=== PATIENT | female | born 1930 | race Caucasian/White ===

== ENCOUNTER 2016-12-30 15:35 | Inpatient (IN) | payer OTHER, MEDICAID ==
[~2016-12-30] VITALS: Ht 157.5 cm; Wt 65.4 kg
[~2016-12-30 15:35] MED LIST: ARIP2TAB8 PO; ASPI-664 PO; ATOR20TA38 PO; BISA5TAB6 PO; CIPR500T4 PO; DOCU250C58 PO; DONE10TA7 PO; GABA-526 PO; HYDR-3011 PO; HYDR-902 PO; IBUP400T22 PO; LEVO50TA74 PO; LISI-313 PO; MORP-58 PO; ONDA4TAB14 PO; RANI150T5 PO; RISP0.5T3 PO; SENN-53 PO; SERT50TA6 PO; TEMA15CA PO; TOPI-25 PO; TRAZ50TA18 PO
[2016-12-30] MEDS ORDERED: SOD CHLORIDE 0.9% 1,000 ML IV STA (15:53)
[2016-12-30 16:18] LABS: ADD SCAN DIFF NO
[2016-12-30 16:21] LABS: ABNORMAL IP MESSAGE 1; BASOPHILS % 0.2 % (0.0-2.0); HEMATOCRIT 41.2 % (37.0-47.0); HEMOGLOBIN 13.6 g/dl (12.0-16.0); LYMPHOCYTES # 0.4 10^3/ul (0.8-2.9); LYMPHOCYTES % 3.6 % (15.0-51.0); MEAN CORPUSCULAR HEMOGLOBIN 33.4 pg (29.0-33.0); MEAN CORPUSCULAR VOLUME 101.2 fl (82.0-101.0); MEAN PLATELET VOLUME 9.5 fl (7.4-10.4); MONOCYTE # 0.5 10^3/ul (0.3-0.9); MONOCYTES % 4.2 % (0.0-11.0); NEUTROPHILS % 91.5 % (39.0-77.0); PLATELET COUNT 227 10^3/UL (140-415); RED BLOOD COUNT 4.07 10^6/ul (4.20-5.40); RED CELL DISTRIBUTION WIDTH 11.6 % (11.5-14.5)
[2016-12-30 16:25] LABS: ADD UMIC YES; URINE BILIRUBIN (Dip) NEGATIVE (NEGATIVE); URINE BLOOD (Dip) 3+ (NEGATIVE); URINE COLOR YELLOW (YELLOW); URINE GLUCOSE (Dip) NEGATIVE (NEGATIVE); URINE KETONES (Dip) NEGATIVE (NEGATIVE); URINE LEUKOCYTE ESTERASE (Dip) 3+ (NEGATIVE); URINE NITRITE (Dip) POSITIVE (NEGATIVE); URINE TOTAL PROTEIN (Dip) TRACE (NEGATIVE); URINE UROBILINOGEN (Dip) 0.2 E.U./dL (0.1-1.0)
--- NOTE | 2016-12-30 16:34 | RADRPT ---
PROCEDURE: Chest x-ray CLINICAL INDICATION: Abdominal pain TECHNIQUE: Chest single view COMPARISON: 11/26/2015 FINDINGS: The heart is normal in size. The pulmonary vessels are normal in caliber. The lungs are clear. Th e costophrenic angles are sharp. The visualized bony thorax is unremarkable. IMPRESSION: No acute cardiopulmonary disease. Stable atherosclerotic aortic calcification Moderate stool in the left colon RPTAT: HH .Lux Walker MD, MD Date Time Electronically viewed and signed by .Lux Walker MD, on 12/30/2016 16:34 .W/
[2016-12-30 16:35] LABS: BACTERIA,URINE MANY
[2016-12-30 16:46] LABS: ALBUMIN 4.1 g/dl (3.3-4.9); CHLORIDE 102 mmol/L (97-110); POTASSIUM 3.8 mmol/L (3.5-5.1); SODIUM 144 mmol/L (135-144)
[2016-12-30 16:48] LABS: ANION GAP 20 (8-16); BILIRUBIN,INDIRECT 0.2 mg/dl (0-1.1); BILIRUBIN,TOTAL 0.2 mg/dl (0.2-1.3); CARBON DIOXIDE 26 mmol/L (21-31); CREATININE 0.72 mg/dl (0.44-1.00)
[2016-12-30 16:49] LABS: ALANINE AMINOTRANSFERASE 19 IU/L (13-69); ALKALINE PHOSPHATASE 102 IU/L (42-121); ASPARTATE AMINO TRANSFERASE 18 IU/L (15-46); BLOOD UREA NITROGEN 17 mg/dl (7-20); CALCIUM 9.6 mg/dl (8.4-10.2); GLUCOSE 160 mg/dl (70-220); TOTAL PROTEIN 7.5 g/dl (6.1-8.1)
[2016-12-30] MEDS ORDERED: FAMO20TA18 PO (16:51)
[2016-12-30] MEDS ORDERED: SODI30SP2 NS (16:53)
[2016-12-30] MEDS ORDERED: ACET325T33 PO (16:55)
[2016-12-30] MEDS ORDERED: TYL500 PO (16:56)
[2016-12-30] MEDS ORDERED: ZINC220T PO (16:57)
[2016-12-30] MEDS ORDERED: ASC500 PO (16:57)
[2016-12-30] MEDS ORDERED: CRAN450C PO (16:59)
[2016-12-30] MEDS ORDERED: DOCU-144 PO (16:59)
[2016-12-30] MEDS ORDERED: CEFEPIME 1GM/50 ML (PMX) 50 ML IVPB ONE (17:00)
[2016-12-30] MEDS ORDERED: DULR PR (17:00)
[2016-12-30] MEDS ORDERED: FLEETPED PR (17:01)
[2016-12-30] MEDS ORDERED: METF500T4 PO (17:02)
[2016-12-30] MEDS ORDERED: MORP60TA37 PO (17:03)
[2016-12-30] MEDS ORDERED: MAGN400O4 PO (17:03)
[2016-12-30] MEDS ORDERED: MULT-105 PO (17:04)
[2016-12-30 17:15] LABS: TROPONIN-I < 0.012 ng/ml (0.00-0.12)
[2016-12-30] MEDS ORDERED: GABA-526 PO (17:19)
--- NOTE | 2016-12-30 17:34 | ERA ---
ER Documentation Chief Complaint Date/Time DATE: 12/30/16 TIME: 17:25 Chief Complaint Seizures HPI 86-year-old woman brought in by EMS from [facility] for tonic-clonic seizure activity. Patient does have a history of seizure disorder and is normally controlled with topiramate. She had postictal encephalopathy and was transported here for evaluation. Patient is normally ambulatory and talkative. Patient had no loss of bowel or bladder control, no tongue injury, no recent fevers or chills, no vomiting or diarrhea. HPI supplemented by reviewing past medical history, [facility] records, speaking to EMS, and nursing staff. ROS All systems reviewed and are negative except as per history of present illness. Medications Home Meds Active Scripts Ondansetron (Ondansetron Odt) 4 Mg Tab.rapdis, 4 MG PO Q6H Y for NAUSEA AND/OR VOMITING, #10 TAB Prov:HAKEEM WU MD 10/08/16 Reported Medications Gabapentin* (Gabapentin*) 600 Mg Tablet, 660 MG PO Q8H, #60 TAB 12/30/16 Multivitamin with Minerals (Multivitamins with Minerals) 1 Each Tablet, 1 EACH PO DAILY, TAB 12/30/16 Morphine Sulfate* (Ms Contin*) 60 Mg Tablet.sa, 60 MG PO BID, TAB.SA 12/30/16 Magnesium Hydroxide* (Milk Of Magnesia*) 400 Mg/5 Ml Oral.susp, 30 ML PO Q24H Y for CONSTIPATION, ML 12/30/16 Metformin* (Glucophage*) 500 Mg Tab, 500 MG PO WITH BREAKFAST, #30 TAB 12/30/16 Sod Phosphate/Sod Biphosphate* (Fleet* Enema Pediatric) 66.6 Ml Soln, 66.6 ML SD Q2D Y for CONSTIPATION, ENEMA 12/30/16 Bisacodyl* (Bisacodyl*) 10 Mg Supp, 10 MG SD Q24H Y for PRN, SUPP 12/30/16 Cranberry Fruit Concentrate (CRANBERRY) 450 Mg Capsule, 450 MG PO DAILY, CAP 12/30/16 Docusate Sodium* (Colace*) 100 Mg Capsule, 200 MG PO QHS, #30 CAP 12/30/16 Zinc Sulfate* (Zinc Sulfate*) 220 Mg Tablet, 220 MG PO DAILY, TAB 12/30/16 Ascorbic Acid (Vitamin C) 500 Mg Tab, 500 MG PO DAILY, TAB 12/30/16 Acetaminophen* (Tylenol*) 500 Mg Tab, 1000 MG PO Q4H Y for MODERATE PAIN 4-04/05 , TAB 12/30/16 Acetaminophen* (Tylenol*) 325 Mg Tablet, 650 MG PO Q4H Y for MILD PAIN LEVEL 1-3 , TAB 12/30/16 Sodium Chloride (Saline Nasal [place]) 30 Ml Downing, 30 ML NS TID Y for 1SPRAY IN EACH NOSTRIL, SPRAY 12/30/16 Famotidine* (Famotidine*) 20 Mg Tablet, 20 MG PO BID, #60 TAB 12/30/16 Hydrocodone/Acetaminophen ([place] 10-325 Tablet) 1 Each Tablet, 1 EACH PO Q4H for PAIN 7-07/06, TAB 10/08/16 Topiramate* (Topiramate*) 100 Mg Tablet, 100 MG PO BID, TAB 10/08/16 Sertraline Hcl* (Sertraline Hcl*) 50 Mg Tablet, 50 MG PO DAILY, #30 TAB 10/08/16 Risperidone* (Risperidone*) 0.5 Mg Tablet, 0.5 MG PO DAILY Q5PM, TAB 10/08/16 Lisinopril* (Lisinopril*) 5 Mg Tablet, 5 MG PO DAILY, #30 TAB 10/08/16 Donepezil* (Donepezil*) 10 Mg Tablet, 10 MG PO QHS, #30 TAB 10/08/16 Atorvastatin Calcium* (Atorvastatin Calcium*) 20 Mg Tablet, 20 MG PO QHS, #30 TAB 10/08/16 Aspirin* (Aspirin* EC) 81 Mg Tablet.dr, 81 MG PO DAILY, TAB 10/08/16 Discontinued Reported Medications Temazepam* (Temazepam*) 15 Mg Capsule, 15 MG PO HS Y for INSOMNIA, CAP 10/08/16 Hydroxyzine Hcl* (Hydroxyzine Hcl*) 25 Mg Tablet, 25 MG PO Q6H Y for ITCHING, # 30 TAB 10/08/16 Ibuprofen* (Ibuprofen*) 400 Mg Tablet, 400 MG PO Q12 Y for PAIN, TAB 10/08/16 Bisacodyl* (Bisacodyl*) 5 Mg Tablet.dr, 10 MG PO DAILY Y for CONSTIPATION, TAB 10/08/16 Trazodone Hcl* (Trazodone Hcl*) 50 Mg Tablet, 50 MG PO QHS, #30 TAB 10/08/16 Docusate Sodium* (Colace*) 250 Mg Capsule, 250 MG PO BID, #60 CAP 10/08/16 Sennosides* (Senna Lax*) 8.6 Mg Tablet, 2 TAB PO QHS, TAB 10/08/16 Ranitidine Hcl* (Ranitidine Hcl*) 150 Mg Tablet, 150 MG PO Q12, #60 TAB 10/08/16 Levothyroxine Sodium* (Levothyroxine Sodium*) 50 Mcg Tablet, 50 MCG PO BEFORE BREAKFAST, #30 TAB 10/08/16 Morphine Sulfate* (Oramorph SR*) 30 Mg Tablet.sa, 30 MG PO Q12H, TAB.SA 10/08/16 Gabapentin* (Gabapentin*) 600 Mg Tablet, 600 MG PO TID, #90 TAB 10/08/16 Aripiprazole* (Abilify*) 2 Mg Tablet, 2 MG PO DAILY, #30 TAB 10/08/16 Discontinued Scripts Ciprofloxacin Hcl* (Ciprofloxacin Hcl*) 500 Mg Tablet, 500 MG PO BID for 10 Days , TAB Prov:HAKEEM WU MD 10/08/16 Ciprofloxacin Hcl* (Ciprofloxacin Hcl*) 500 Mg Tablet, 500 MG PO BID for 10 Days , TAB Prov:HAKEEM UW MD 10/08/16 Allergies Allergies: Coded Allergies: No Known Allergy (Unverified , 12/30/16) PMhx/Soc Coronary artery disease, seizure disorder, hypertension, dementia, chronic low back pain, DNR status Medical and Surgical Hx: Unable to obtain History of Surgery: Yes (cholecystectomy) Anesthesia Reaction: No Hx Neurological Disorder: Yes (diabetic neuropathy) Hx Respiratory Disorders: No Hx Cardiac Disorders: Yes (htn, DM) Hx Psychiatric Problems: No Hx Miscellaneous Medical Probl: Yes (hypothyroidism,dementia,chronic pain) Hx Alcohol Use: No Hx Substance Use: No Hx Tobacco Use: No Smoking Status: Unknown if ever smoked FmHx Family History: No diabetes Physical Exam Vitals Vital Signs Date Time Temp Pulse Resp B/P Pulse Ox O2 Delivery O2 Flow Rate FiO2 12/30/16 20:59 98.3 67 14 97/43 12/30/16 20:24 70 12 92/40 90 12/30/16 17:43 76 14 91/52 98 12/30/16 15:45 98.4 90 17 77/64 98 Nasal Cannula 3.0 Physical Exam GENERAL: Well-developed, dehydrated, encephalopathic, afebrile HEENT: Dry mucous membranes, pink conjunctiva, no cervical spine tenderness or step-off deformities, no goiter, no jaundice or icterus, extraocular movements intact without pain. No submandibular induration, and no pharyngeal erythema NEURO: Nonverbal, eyes closed, no facial asymmetry, pupils equal round reactive to light CARDIAC: Tachycardic and rhythm, no murmurs rubs or gallops LUNGS: Clear bilaterally no wheezing crackles or stridor ABDOMEN: Soft nontender, no guarding, no rigidity, no rebound, no psoas sign no obturator sign. Normoactive bowel sounds SKIN: Warm and dry to touch, no abrasions, contusions, or hematomas, no lacerations, no ecchymosis, no target lesions, and without ulcers EXTREMITIES: No clubbing cyanosis or edema, calves are bilaterally symmetrical, no Homans sign, no popliteal cord sign. Distal pulses equal and bilateral PSYCH: Unable to assess Result Diagram: 12/30/16 1610 12/30/16 1610 Results 24 hrs Laboratory Tests Test 12/30/16 16:10 Alanine Aminotransferase (ALT/SGPT) 19IU/L Albumin 4.1g/dl Albumin/Globulin Ratio 1.20 Alkaline Phosphatase 102IU/L Anion Gap 20 Aspartate Amino Transf (AST/SGOT) 18IU/L Basophils # 0.010^3/ul Basophils % 0.2% Blood Urea Nitrogen 17mg/dl Calcium Level 9.6mg/dl Carbon Dioxide Level 26mmol/L Chloride Level 102mmol/L Creatinine 0.72mg/dl Direct Bilirubin 0.00mg/dl Eosinophils # 0.010^3/ul Eosinophils % 0.0% Globulin 3.40g/dl Glucose Level 160mg/dl Hematocrit 41.2% Hemoglobin 13.6g/dl Indirect Bilirubin 0.2mg/dl Lipase 48U/L Lymphocytes # 0.410^3/ul Lymphocytes % 3.6% Mean Corpuscular Hemoglobin 33.4pg Mean Corpuscular Hemoglobin Concent 33.0g/dl Mean Corpuscular Volume 101.2fl Mean Platelet Volume 9.5fl Monocytes # 0.510^3/ul Monocytes % 4.2% Neutrophils # 11.010^3/ul Neutrophils % 91.5% Nucleated Red Blood Cells # 0.010^3/ul Nucleated Red Blood Cells % 0.0/100WBC Platelet Count 25966^3/UL Potassium Level 3.8mmol/L Red Blood Count 4.0710^6/ul Red Cell Distribution Width 11.6% Sodium Level 144mmol/L Total Bilirubin 0.2mg/dl Total Protein 7.5g/dl Troponin I < 0.012ng/ml Urine Amorphous Phosphates MANY Urine Bacteria MANY Urine Bilirubin NEGATIVE Urine Clarity TURBID Urine Color YELLOW Urine Epithelial Cells FEW Urine Glucose NEGATIVE% Urine Hemoglobin 3+ Urine Ketones NEGATIVE Urine Leukocyte Esterase 3+ Urine Microscopic RBC 5-10/HPF Urine Microscopic WBC >50/HPF Urine Nitrite POSITIVE Urine Specific [place] 1.015 Urine Total Protein TRACE Urine Triple Phosphate Crystals FEW Urine Urobilinogen 0.2 E.U./dL Urine pH 8.0 White Blood Count 12.010^3/ul Current Medications Medications (Trade) Dose Ordered Sig/Jacquelyn Route PRN Reason Start Time Stop Time Status Last Admin Dose Admin Sodium Chloride 1,000 ml @ 1,000 mls/hr Q1H STAT IV 12/30/16 15:53 12/30/16 16:52 DC 12/30/16 16:42 Cefepime HCl (Maxipime 1gm/50 ml (Pmx)) 50 ml @ 100 mls/hr ONCE ONCE IVPB 12/30/16 17:00 12/30/16 17:29 DC 12/30/16 16:56 Acetaminophen (Tylenol Tab) 650 mg Q4H PRN PO MILD PAIN LEVEL 1-3 12/30/16 20:00 Ascorbic Acid (Vitamin C) 500 mg DAILY PO 12/31/16 09:00 Aspirin (Halfprin) 81 mg DAILY PO 12/31/16 09:00 Atorvastatin Calcium (Lipitor) 20 mg QHS PO 12/30/16 21:00 Donepezil HCl (Aricept) 10 mg QHS PO 12/30/16 21:00 Famotidine (Pepcid) 20 mg BID PO 12/30/16 21:00 UNV Acetaminophen/ Hydrocodone Bitart ([place] (10/325)) 1 tab Q4H PRN PO pain 12/30/16 20:00 Magnesium Hydroxide (Milk Of Mag) 30 ml Q24H PRN PO CONSTIPATION 3/6/17 20:00 Morphine Sulfate (Ms Contin (Er)) 60 mg BID PO 12/30/16 21:00 Sodium Chloride ([place]) 1 spray TID PRN NASAL 1SPRAY IN EACH NOSTRIL 12/30/16 20:00 Topiramate (Topamax) 100 mg BID PO 12/30/16 21:00 Zinc Sulfate (Zinc Sulfate) 220 mg DAILY PO 12/31/16 09:00 Gabapentin (Neurontin) 600 mg Q8H PO 12/30/16 20:00 Senna/Docusate Sodium (Senokot-S) 2 tab BID PO 12/30/16 21:00 Polyethylene Glycol (Miralax) 17 gm Q12H PRN PO no bm >24 hours 12/30/16 20:00 Methylnaltrexone [place] (Relistor) 12 mg Q24H PRN SC no bm >24 hours 12/30/16 20:00 Enoxaparin Sodium 40 mg 40 mg DAILY SC 12/31/16 09:00 Cefepime HCl 50 ml @ 100 mls/hr Q8 IVPB 12/30/16 22:00 Metronidazole 100 ml @ 100 mls/hr Q8 IVPB 12/30/16 22:00 Sodium Chloride (NS) 1,000 ml @ 125 mls/hr Q8H IV 12/30/16 20:00 Insulin Aspart (Novolog Insulin Pen) NOVOLOG *MODERATE* ALGORITHM WITH MEALS BEDTIME SC 12/30/16 21:00 Miscellaneous Information (* Miscellaneous Pharmacy Order) HYPOGLYCEMIA PROTOCOL w... ONCE ONCE XX 12/30/16 20:00 12/30/16 21:17 DC Miscellaneous Information (* Miscellaneous Pharmacy Order) Discontinue Glyburide, Glipizide,... ONCE ONCE XX 12/30/16 20:00 12/30/16 21:17 DC Miscellaneous Information (* Miscellaneous Pharmacy Order) Discontinue all previ... ONCE ONCE XX 12/30/16 20:00 12/30/16 21:17 DC Famotidine (Pepcid) 20 mg DAILY PO 12/31/16 09:00 Diagnostic Test (Pha) (Accucheck) 1 ea 02 XX 12/31/16 02:00 Miscellaneous Information 1 ea NOTE XX 12/30/16 21:00 Glucose (Glutose) 15 gm Q15M PRN PO DECREASED GLUCOSE 3/6/17 21:00 Glucose (Glutose) 22.5 gm Q15M PRN PO DECREASED GLUCOSE 12/30/16 21:00 Dextrose (D50w Syringe) 25 ml Q15M PRN IV DECREASED GLUCOSE 12/30/16 21:00 Dextrose (D50w Syringe) 50 ml Q15M PRN IV DECREASED GLUCOSE 12/30/16 21:00 Glucagon (Glucagen) 1 mg Q15M PRN IM DECREASED GLUCOSE 12/30/16 21:00 Glucose (Glutose) 15 gm Q15M PRN BUCCAL DECREASED GLUCOSE 12/30/16 21:00 Procedures/MDM IV line was established patient was placed on monitoring analyst rhythm strip revealed a sinus tachycardia at 110 bpm with upright P and T waves. Patient was afebrile. Blood and urine cultures were ordered results are pending I will follow-up. EKG performed, read by me revealed a normal sinus rhythm 87 bpm, left axis deviation, right bundle branch block, QRS duration 134 ms, no concerning ST elevations or depressions noted. One view chest x-ray performed, read by me there are no acute infiltrates, no aspiration, no pneumothorax. I administered 1 L normal saline intravenously for dehydration. CBC was unremarkable, electrolytes revealed an increased BUN/creatinine ratio consistent with dehydration, liver function tests are normal, troponin was negative. Urine analysis was positive for infection. I administered cefepime 1 g IV [address] Yousif the patient's health insurance directed physician who agreed to see and evaluate the patient at the bedside and help with further disposition and management. He agreed to inpatient management Departure Diagnosis: Primary Impression: Seizure disorder Additional Impressions: Postictal state Dehydration UTI (urinary tract infection) Qualified Code: N30.00 - Acute cystitis without hematuria Condition: NICK Cartwright MD Dec 30, 2016 17:34
--- NOTE | 2016-12-30 19:24 | RADRPT ---
PROCEDURE: CT Head without contrast. CLINICAL INDICATION: Seizure TECHNIQUE: The study was performed utilizing a GE 64-slice multidetector CT scanner. Direct spiral axial CT images of the brain were obtained from the vertex to the skull base without contrast. Tiffanie nal and sagittal reformatted images are provided. The CTDI vol is 39.63 mGy and the DLP is 634.23 mG y-cm. The images were reviewed on a PACS workstation. COMPARISON: No prior studies are available for comparison. FINDINGS: Mild diffuse atrophy is seen with a compensatory ventricular enlargement. Mild white matter disease in the periventricular and deep white matter is seen. Small chronic bilateral basal ganglia lacunar infarcts are seen. The kohler-white matter differentiation is maintained. No intra or extra-axial fl uid collection or mass effect or shift in the midline structures is seen. The visualized paranasal sinuses, mastoid air cells, orbits, and calvarium are unremarkable. Vascular calcifications are seen . IMPRESSION: 1. No acute intracranial pathology. 2. Mild diffuse volume loss and mild chronic microvascular ischemic changes. 3. Small bilateral basal ganglia chronic lacunar infarcts. RPTAT: HPNM Physician Arabella Date Time Electronically viewed and signed by Physician Arabella on 12/30/2016 19:24 /
[2016-12-30] MEDS ORDERED: HYDROCODONE/APAP (10/325) TAB PO PRN (20:00)
[2016-12-30] MEDS ORDERED: POLYETHYLENE GLYCOL 17 GM PACKET PO PRN (20:00)
[2016-12-30] MEDS ORDERED: ACETAMINOPHEN 325 MG TAB PO PRN (20:00)
[2016-12-30] MEDS ORDERED: METHYLNALTREXONE 12 MG/0.6 ML VIAL SC PRN (20:00)
[2016-12-30] MEDS ORDERED: MAGNESIUM HYDROXIDE 30ML CUP PO PRN (20:00)
[2016-12-30] MEDS ORDERED: SALINE 0.65% 45 ML NAS SPRAY NASAL PRN (20:00)
--- NOTE | 2016-12-30 20:17 | QN ---
Documentation Comment H&P dict a/p 1. neuro: s/p tonic clonic seizure, no w recovered. neuro eval for ?change or add meds (b) dementia, cont aricept 2. gu: patient with numerous uti, suggestion of possible bladder mass in paperwork that accompanies. will Rx with abx plan outpatient urology eval when urine is documented sterile for possible cystoscopy (if not already done) 3. GI: pt with RLQ pain, unclear etiology, most likely constipation, will obtain ct for futher eval. r/o appy (b) chronic constipation related to opiates, increase bowel regimen 4. chronic pain related to spinal stenosis cont opiates 5. proph: lovenox 6.dm ISS ISAC VELEZ MD Dec 30, 2016 20:17
[2016-12-30 20:59] VITALS: TEMP 98.3
[2016-12-30] MEDS ORDERED: GLUCAGON 1 MG INJ IM PRN (21:00)
[2016-12-30] MEDS ORDERED: GLUCOSE GEL 15 GRAM TUBE PO PRN ×2 (21:00)
[2016-12-30] MEDS ORDERED: DEXTROSE 50% 50 ML SYRINGE IV PRN ×2 (21:00)
[2016-12-30] MEDS ORDERED: GLUCOSE GEL 15 GRAM TUBE BUCCAL PRN (21:00)
[2016-12-30] MEDS ORDERED: FAMOTIDINE 20 MG TAB PO SCH (21:00)
--- NOTE | 2016-12-30 21:11 | RADRPT ---
PROCEDURE: CT abdomen and pelvis without contrast. CLINICAL INDICATION: Right lower quadrant pain TECHNIQUE: CT scan of the abdomen and pelvis without contrast was performed and is reconstructed a t 2.5 mm contiguous axial intervals from the dome of the diaphragm to the inferior pubic rami.. The patient was scanned without intravenous contrast. Sagittal and coronal reformatted images were obt ained from the axial source images. The calculated radiation dose measures 540 mGy centimeters. The CTDI measures 11 mGy. COMPARISON: CT abdomen pelvis February 13, 2016 FINDINGS: The lung bases are clear of any infiltrate or nodule. No effusion is seen. The liver is of normal size, contour and attenuation with no mass . Gallbladder has been removed. T here is presumed physiologic mild intrahepatic and moderate extrahepatic bile duct dilatation. No s tones are present. No splenic, adrenal or pancreatic abnormalities present. Kidneys are of normal size and contour. No mass is seen. Noted are multiple bilateral nonobstructi ng renal calculi including a 5 mm stone in the right renal pelvis. There is mild left hydroureter ne phrosis. A 6 mm calculus is seen at the orifice of the left ureterovesicular junction. The right u reter is of normal course and caliber with no stone. Clifton catheter is present in the urinary bladd er. Uterus is atrophic. There are calcified fibroids. There is gas visualized within the endometr ial canal. No adnexal mass is seen. There is no aneurysm. There are vascular calcifications. No adenopathy is present. No bowel mass or obstruction is present. The appendix is normal. There are scattered diverticula. No phlegmon, ascites or pneumoperitoneum is visualized. There is rotary levoscoliosis of the lumbar spine with multilevel degenerative disk disease. IMPRESSION: Bilateral nonobstructing renal calculi. Mild left hydroureter nephrosis with 6 mm stone orifice ure terovesicular junction. Post cholecystectomy. Presumed physiologic intra and extrahepatic bile duct dilatation. Consider c orrelation with liver function tests if clinically indicated. No evidence of appendicitis. Diverticulosis. No diverticulitis. Atrophic postmenopausal fibroid uterus. Gas within endometrial canal not present on prior study. Th is is of unknown significance. No fistula to the bowel is seen. Consider sonographic correlation. Rotary levoscoliosis lumbar spine with multilevel degenerative disk disease. .Alessandro Bocanegra MD, MD Date Time Electronically viewed and signed by .Alessandro Bocanegra MD, on 12/30/2016 21:11 .A/
[2016-12-30 22:30] VITALS: Ht 157.5 cm; Wt 65.4 kg
[2016-12-30 22:55] VITALS: BP 121/57; PULSE 67
[2016-12-30] MEDS: GABAPENTIN 300 MG CAP PO SCH (22:55)
[2016-12-30] MEDS: SOD CHLORIDE 0.9% 1,000 ML IV SCH (22:55)
[2016-12-30] MEDS: morphine (ER) 30 MG TAB PO SCH (22:56)
[2016-12-30] MEDS: DONEPEZIL 10 MG TAB PO SCH (22:56)
[2016-12-30] MEDS: ATORVASTATIN 20 MG TAB PO SCH (22:56)
[2016-12-30] MEDS: SENNA/DOCUSATE NA (8.6MG/50MG) TAB PO SCH (22:57)
[2016-12-30] MEDS: metroNIDAZOLE 500 MG/NS (PMX) 100 ML IVPB SCH (22:57)
[2016-12-30] MEDS: INSULIN ASPART [NOVOLOG] 3 ML PEN SC SCH (22:57)
[2016-12-30] MEDS: TOPIRAMATE 100 MG TAB PO SCH (23:29)
[2016-12-30] MEDS: CEFEPIME 1GM/50 ML (PMX) 50 ML IVPB SCH (23:56)
--- NOTE | 2016-12-31 00:57 | HP ---
DATE OF ADMISSION: 12/30/2016 CHIEF COMPLAINT: Seizure. HISTORY OF PRESENT ILLNESS: Ms. Tam was transferred to the emergency room at [facility], her shelter facility, after having a tonic-clonic seizure. The p atient has no recollection of this event. She apparently did have a prolonged postictal confusion, but by the time of my arrival, she is now awake, alert and answering appropriately. She does compla in of some abdominal pain which she localizes to the right lower quadrant, states that she has had 1 or 2 episodes of vomiting, that she suffers frequently from constipation and this has also been armando oing. She denies any recent fevers or chills. Denies coughing, runny nose, sore throat. PAST MEDICAL HISTORY: Significant for: 1. Alzheimer dementia. 2. Seizure disorder. 3. Chronic pain syndrome. 4. Diabetes. 5. Hyperlipidemia. 6. Hypertension. MEDICATIONS AN OUTPATIENT: Include 1. Aricept 10 mg daily. 2. Lipitor 20 mg daily. 3. Lisinopril 5 mg daily. 4. Tylenol p.r.n. 5. Aspirin 81 mg daily. 6. Neurontin 600 mg t.i.d. 7. [place] 10/325 one tablet every 4 hours as needed. 8. MS Contin 60 mg b.i.d. 9. Risperidone 0.5 mg daily. 10. Zoloft 50 mg daily. 11. Topamax 100 mg b.i.d. 12. Zinc sulfate 220 mg daily. 13. Saline nasal spray. 14. Pepcid 20 mg b.i.d. 15. P.r.n. bowel regimen. 16. Metformin 500 mg daily. 17. Vitamin C 500 mg daily. 18. Multivitamin 1 tablet daily. 19. Cranberry. ALLERGIES: NO KNOWN DRUG ALLERGIES. SOCIAL HISTORY: The patient has been a resident at [facility] for ap proximately 2 to 3 months. She walks with a walker. She denies alcohol and illicit drug use though does claim to continue smoking. FAMILY HISTORY: Noncontributory. REVIEW OF SYSTEMS: Five systems reviewed and found not to be revealing. PHYSICAL EXAMINATION: VITAL SIGNS: Blood pressure is 91/52, pulse rate 76, respirations 14, temperature is 98.4, saturati ng 98% on room air. GENERAL: Pleasant elderly woman. No acute distress. Alert, answering questions appropriately. HEENT: Normocephalic, atraumatic without any scleral icterus, perioral cyanosis. Mucous membranes are dry. NECK: Soft and supple without masses. No evidence of jugular venous distention or carotid bruits. CHEST: Clear to auscultation and percussion bilaterally. HEART: Regular rate and rhythm. S1-S2. No added sounds. ABDOMEN: Soft, tender in the right lower quadrant. No palpable hepatosplenomegaly. EXTREMITIES: Without clubbing, cyanosis or edema. SKIN: There is a dressing applied to the left heel where patient has a decubitus ulcer. NEUROLOGIC: Cranial nerves II-XII are intact. Tone, power and coordination intact x4 limbs. LABORATORY STUDIES: A hemoglobin of 13.6 grams/dL, white count of 12,000, platelets of 227,000. So dium 144, potassium 3.8, chloride 102, bicarbonate 26, BUN 17, creatinine 0.72, glucose 160. Liver function tests are unremarkable. Troponin is negative. Lipase is 48. UA does show 3+ leukocyte es terase, greater than 50 white cells, 3+ hemoglobin. IMAGING: Chest x-ray is essentially normal. CT scan of brain reveals only chronic changes, no acut e masses or bleeds. EKG reveals sinus rhythm with right bundle branch block pattern and no ischemic ST segment or T-wave changes. Review of the paperwork which accompanies patient from the shelter facility shows an EKG don e on 10/10 which is similar to the one done in this hospital, a POLST form which reveals do not atte mpt resuscitation, selective treatment, transfer to the hospital only if comfort needs cannot be met . The history and physical done at the nursing facility shows a blood pressure of 104/60. However, a sheet of monthly vital signs reveals patient's blood pressure to generally be approximately 120/8 0. The patient did have a laboratory evaluation performed on 12/20 which revealed a hemoglobin of 11.5, a white blood cell count of 6800, platelet count of 207,000. At that time, her sodium was 104, pot assium 4.0, chloride 107, bicarbonate 28, BUN 13, creatinine 0.65, glucose 78. Liver function tests at that time were similarly unremarkable. The patient has an MRI of the lumbar spine with her from [facility] which shows multilevel de generative disk disease with central canal stenosis and neural foraminal stenosis. ASSESSMENT AND PLAN: 1. Neurologic: The patient with breakthrough seizure, unclear etiology or clinical significance, h as been treated with Topamax up until this point in time. Will obtain neurology evaluation for dete rmination if or if not change or addition of medications is warranted at this time. 2. Gastrointestinal: The patient with right lower quadrant abdominal pain of unclear etiology. Wi ll obtain CT scan to rule out surgical disease, though I doubt this possibility. I think the most l ikely explanation for this is chronic constipation. 3. The patient with chronic constipation related to chronic opiate therapy. Will begin aggressive bowel regimen with Colace, Senna, MiraLax and Relistor as needed. 4. Genitourinary: The patient with urinary tract infection, has suggestion in the accompanying pap erwork that she may or may not have a bladder mass and did at one point have imaging suggestive of a nterior bladder wall thickening. It is unclear if there has been any further urology evaluation. A t this point will plan to arrange urology evaluation for when her urinary tract infection is complet jonathan treated. 5. Prophylaxis with Lovenox. Dictated By: ISAC VELEZ MD RER/NTS Conf#: [id number] DID#: [id number]
[2016-12-31] MEDS: ACCUCHECK AT 2AM (Patients on SS coverage) XX SCH (02:00)
[2016-12-31] MEDS: GABAPENTIN 300 MG CAP PO SCH ×3 (04:00→21:06)
[2016-12-31] MEDS: SOD CHLORIDE 0.9% 1,000 ML IV SCH ×2 (04:00→10:58)
[2016-12-31] MEDS: CEFEPIME 1GM/50 ML (PMX) 50 ML IVPB SCH ×3 (06:01→21:55)
[2016-12-31] MEDS: metroNIDAZOLE 500 MG/NS (PMX) 100 ML IVPB SCH ×3 (06:41→22:54)
[2016-12-31] MEDS: INSULIN ASPART [NOVOLOG] 3 ML PEN SC SCH ×4 (08:00→21:00)
[2016-12-31 08:19] VITALS: BP 99/48; PULSE 62; RESP 14
[2016-12-31] MEDS: TOPIRAMATE 100 MG TAB PO SCH ×2 (08:57→21:07)
[2016-12-31] MEDS: morphine (ER) 30 MG TAB PO SCH ×2 (08:57→21:06)
[2016-12-31] MEDS: SENNA/DOCUSATE NA (8.6MG/50MG) TAB PO SCH ×2 (08:57→21:07)
[2016-12-31] MEDS: ASCORBIC ACID 500 MG TAB PO SCH (08:57)
[2016-12-31] MEDS: ZINC SULFATE 220 MG CAP PO SCH (08:57)
[2016-12-31] MEDS: ASPIRIN (EC) 81 MG TAB PO SCH (08:57)
[2016-12-31] MEDS: FAMOTIDINE 20 MG TAB PO SCH (08:57)
[2016-12-31] MEDS: ENOXAPARIN 40 MG/0.4 ML SYG SC SCH ×2 (08:58→09:00)
[2016-12-31 10:11] VITALS: BP 99/53; PULSE 62
--- NOTE | 2016-12-31 11:45 | PN ---
Date/Time of Note Date/Time of Note DATE: 12/31/16 TIME: 11:34 Assessment/Plan VTE Prophylaxis VTE Prophylaxis Intervention: LMWH Lines/Catheters IV Catheter Type (from Nrs): Saline Lock Urinary Cath still in place: Yes Reason Cath still needed: other (indicate) (UTI, monitor UOP ) Assessment/Plan Assessment/Plan 86 yo female with 1. UTI and GNR bacteremia with right lower quadrant pain and findings of mild left hydronephrosis and a 6mm calculi at the origin of the UPJ. Hx of bladder stone s/p removal in 2014 On cefepime Urine cx pending and Blood cx with GNR Urology consult will be requested Repeat blood cx if fevers today or tomorrow AM per protocol 2. Seizure disorder with breakthrough seizure vs New onset seizures, patient has been on Topamax but may have been for psychiatric disorder. Neurology eval pending 3. Chronic constipation related to chronic opiate therapy. Agree with new bowel regimen with Colace, Senna, MiraLax and Relistor as needed. 4. Chronic pain: continue pain regimen 5. Psychiatric disorder/Anxiety disorder : continue current medications 6. Dementia, per report: seems stable currently 7. Hypothyroidism: not on Synthroid currently, check TFTs Prophylaxis: SCds for dvdt ppx and PPI for GI ppx Disposition: Urology and Neurology eval, IV abx, repeat blood cx in AM . Subjective 24 Hr Interval Summary Free Text/Dictation Patient doing well this AM Afebrile and blood cx and Urine cx positive with GNR Neurology consult pending re seizures Exam/Review of Systems Vital Signs Vitals Vital Signs Date Time Temp Pulse Resp B/P Pulse Ox O2 Delivery O2 Flow Rate FiO2 12/31/16 10:11 98.3 62 99/53 12/31/16 08:19 14 96 Nasal Cannula 2.0 Intake and Output 12/30/16 12/30/16 12/31/16 15:00 23:00 07:00 Intake Total 825 ml Output Total 400 ml Balance 425 ml Exam Constitutional: alert, oriented (x2 ) Respiratory: clear to auscultation, normal air movement Cardiovascular: nl pulses, regular rate and rhythm Gastrointestinal: non-tender, soft Musculoskeletal: nl extremities to inspection Extremities: normal pulses Neurological: SET UP 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 II-XII intact, nl mental status, other (PT eval pending ) Results Result Diagram: 12/30/16 1610 12/30/16 1610 Results 24 hrs Laboratory Tests Test 12/30/16 16:10 12/30/16 22:27 12/31/16 05:36 12/31/16 07:46 Alanine Aminotransferase (ALT/SGPT) 19 Albumin 4.1 Albumin/Globulin Ratio 1.20 Alkaline Phosphatase 102 Anion Gap 20 H Aspartate Amino Transf (AST/SGOT) 18 Basophils # 0.0 Basophils % 0.2 Blood Urea Nitrogen 17 Calcium Level 9.6 Carbon Dioxide Level 26 Chloride Level 102 Creatinine 0.72 Direct Bilirubin 0.00 Eosinophils # 0.0 Eosinophils % 0.0 Globulin 3.40 H Glucose Level 160 Hematocrit 41.2 Hemoglobin 13.6 Indirect Bilirubin 0.2 Lipase 48 Lymphocytes # 0.4 L Lymphocytes % 3.6 L Mean Corpuscular Hemoglobin 33.4 H Mean Corpuscular Hemoglobin Concent 33.0 Mean Corpuscular Volume 101.2 H Mean Platelet Volume 9.5 Monocytes # 0.5 Monocytes % 4.2 Neutrophils # 11.0 H Neutrophils % 91.5 H Nucleated Red Blood Cells # 0.0 Nucleated Red Blood Cells % 0.0 Platelet Count 227 Potassium Level 3.8 Red Blood Count 4.07 L Red Cell Distribution Width 11.6 # Sodium Level 144 Total Bilirubin 0.2 Total Protein 7.5 Troponin I < 0.012 Urine Amorphous Phosphates MANY Urine Bacteria MANY Urine Bilirubin NEGATIVE Urine Clarity TURBID Urine Color YELLOW Urine Epithelial Cells FEW Urine Glucose NEGATIVE Urine Hemoglobin 3+ H Urine Ketones NEGATIVE Urine Leukocyte Esterase 3+ H Urine Microscopic RBC 5-10 Urine Microscopic WBC >50 Urine Nitrite POSITIVE H Urine Specific [place] 1.015 Urine Total Protein TRACE Urine Triple Phosphate Crystals FEW Urine Urobilinogen 0.2 E.U./dL Urine pH 8.0 White Blood Count 12.0 #H Bedside Glucose 139 114 Hemoglobin A1c 5.7 Test 12/31/16 11:15 Bedside Glucose 116 Medications Medications Current Medications Acetaminophen (Tylenol Tab) 650 mg Q4H PRN PO MILD PAIN LEVEL 1-3; Start at 20:00 Ascorbic Acid (Vitamin C) 500 mg DAILY PO Last administered on 12/31/16 08:57; Admin Dose 500 MG; Start 12/31/16 at 09:00 Aspirin (Halfprin) 81 mg DAILY PO Last administered on 12/31/16 08:57; Admin Dose 81 MG; Start 12/31/16 at 09:00 Atorvastatin Calcium (Lipitor) 20 mg QHS PO Last administered on 12/30/16 22:56 ; Admin Dose 20 MG; Start 12/30/16 at 21:00 Donepezil HCl (Aricept) 10 mg QHS PO Last administered on 12/30/16 22:56; Admin Dose 10 MG; Start 12/30/16 at 21:00 Acetaminophen/ Hydrocodone Bitart ([place] (10/325)) 1 tab Q4H PRN PO pain; Start 12/30/16 at 20:00 Magnesium Hydroxide (Milk Of Mag) 30 ml Q24H PRN PO CONSTIPATION; Start at 20:00 Morphine Sulfate (Ms Contin (Er)) 60 mg BID PO Last administered on 12/31/16 08 :57; Admin Dose 60 MG; Start 12/30/16 at 21:00 Sodium Chloride (Deep Sea) 1 spray TID PRN NASAL 1SPRAY IN EACH NOSTRIL; Start 12/30/16 at 20:00 Topiramate (Topamax) 100 mg BID PO Last administered on 12/31/16 08:57; Admin Dose 100 MG; Start 12/30/16 at 21:00 Zinc Sulfate (Zinc Sulfate) 220 mg DAILY PO Last administered on 12/31/16 08:57 ; Admin Dose 220 MG; Start 12/31/16 at 09:00 Gabapentin (Neurontin) 600 mg Q8H PO Last administered on 12/30/16 22:55; Admin Dose 600 MG; Start 12/30/16 at 20:00 Senna/Docusate Sodium (Senokot-S) 2 tab BID PO Last administered on 12/31/16 08 :57; Admin Dose 2 TAB; Start 12/30/16 at 21:00 Polyethylene Glycol (Miralax) 17 gm Q12H PRN PO no bm >24 hours; Start 12/30/16 at 20:00 Methylnaltrexone [place] (Relistor) 12 mg Q24H PRN SC no bm >24 hours; Start at 20:00 Enoxaparin Sodium 40 mg 40 mg DAILY SC ; Start 12/31/16 at 09:00 Cefepime HCl 50 ml @ 100 mls/hr Q8 IVPB Last administered on 12/31/16 06:01; Admin Dose 100 MLS/HR; Start 12/30/16 at 22:00 Metronidazole 100 ml @ 100 mls/hr Q8 IVPB Last administered on 12/31/16 06:41 ; Admin Dose 100 MLS/HR; Start 12/30/16 at 22:00 Sodium Chloride (NS) 1,000 ml @ 125 mls/hr Q8H IV Last administered on 10:58; Admin Dose 125 MLS/HR; Start 12/30/16 at 20:00 Famotidine (Pepcid) 20 mg DAILY PO Last administered on 12/31/16 08:57; Admin Dose 20 MG; Start 12/31/16 at 09:00 Diagnostic Test (Pha) (Accucheck) 1 ea 02 XX ; Start 12/31/16 at 02:00 Miscellaneous Information 1 ea NOTE XX ; Start 12/30/16 at 21:00 Glucose (Glutose) 15 gm Q15M PRN PO DECREASED GLUCOSE; Start 12/30/16 at 21:00 Glucose (Glutose) 22.5 gm Q15M PRN PO DECREASED GLUCOSE; Start 12/30/16 at 21:00 Dextrose (D50w Syringe) 25 ml Q15M PRN IV DECREASED GLUCOSE; Start 12/30/16 at 21:00 Dextrose (D50w Syringe) 50 ml Q15M PRN IV DECREASED GLUCOSE; Start 12/30/16 at 21:00 Glucagon (Glucagen) 1 mg Q15M PRN IM DECREASED GLUCOSE; Start 12/30/16 at 21:00 Glucose (Glutose) 15 gm Q15M PRN BUCCAL DECREASED GLUCOSE; Start 12/30/16 at 21: 00 NAYA RAMOS Dec 31, 2016 11:45 NAYA RAMOS Dec 31, 2016 11:45
[2016-12-31 12:40] LABS: INR 1.29; PARTIAL THROMBOPLASTIN TIME 35.4 Sec (25.0-35.0); PROTIME 16.2 Sec (12.2-14.2); PT RATIO 1.3
[2016-12-31] MEDS: RISPERIDONE 0.25 MG TAB PO SCH (17:43)
[2016-12-31 20:05] VITALS: BP 123/81; RESP 18
--- NOTE | 2016-12-31 20:13 | CONS ---
DATE OF ADMISSION: 12/30/2016 DATE OF CONSULTATION: 12/31/2016 TYPE OF CONSULTATION: Neurology. Thank you, Dr. Ramos, for kind referral for evaluation of seizure. HISTORY OF PRESENT ILLNESS: The patient is an 86-year-old lady with past medical history of dementi a, depression, hypertension, GERD, as well as low back pain who was admitted from [facility], [place] where she had a seizure episode. The patient also has a past medical history of low back kari n and neuropathy, according to the records. She has no recollection of the seizure. No definite au ra preceding the seizure. She denies any history of seizures. MEDICATIONS: Prior to admission: 1. Aricept. 2. Lipitor. 3. Lisinopril. 4. Aspirin. 5. Neurontin 600 three times a day. 6. [place]. 7. MS Contin. 8. Risperidone. 9. Zoloft. 10. Topamax 100 twice daily. 11. Metformin. ALLERGIES: NONE. SOCIAL HISTORY: Cigarette smoker. No alcohol or drug use. FAMILY HISTORY: Stroke and diabetes. REVIEW OF SYSTEMS: The patient stated that she has a history of low back pain, but it is getting be tter. She had recent hospitalization to [facility] secondary to low back pain and w as diagnosed with severe spinal stenosis at level T12-L1, as well as severe neural foraminal narrowi ng at the level of L4 on the right. I forgot to mention that I asked the patient why she takes Topamax. She could not tell me what was the reason. She denies any history of bipolar disorder or seizures or migraines for which at times Topamax used. CURRENT MEDICATIONS: 1. Zoloft 50. 2. I increased her Topamax 150 twice daily. 3. She is still getting risperidone 0.5 at bedtime. 4. Aspirin 81. 5. Famotidine. 6. Cefepime. 7. Metronidazole. 8. Lipitor 20. 9. MS Contin. 10. Insulin. LABORATORY DATA: Shows WBC count 12, hemoglobin 13.6, hematocrit 41, elevated indices, neutrophil c ount 91. Chemistry essentially normal comprehensive metabolic panel. PT 16, PTT 35. Urinalysis: Positive nitrites, 3+ leukocyte esterase, more than 50 WBCs, 3+ hemoglobin. PHYSICAL EXAMINATION: VITAL SIGNS: Temperature 98.3, 62 pulse, 99/53 blood pressure, 14 respirations. GENERAL: Not in acute distress, lying in bed. HEENT: Normocephalic, atraumatic head. NECK: No carotid bruits. No thyromegaly. LUNGS: Clear to auscultation bilaterally. CARDIAC: Normal cardiac rhythm and sounds. ABDOMEN: Soft, nontender. EXTREMITIES: No cyanosis, clubbing, or edema. Right heel covered with dressing. She claims to hav e some blisters there. NEUROLOGIC: She is awake, alert, and oriented x2 with fluent speech. Cranial nerve examination alfred ws intact visual green bilaterally to visual threat. Pupils about 2 mm bilaterally, no definite re action to light. Extraocular movements intact without nystagmus. Symmetrical face. Preserved faci al strength and sensation. Tongue is in midline. Palate elevates symmetrically. Motor strength ex amination preserved in all extremities. Normal bulk, tone, and strength. Some give way in lower ex tremities secondary to back pain. Sensory examination grossly intact to light touch and pain. Deep tendon reflexes 2+ upper extremities, 1+ knee jerks, absent ankle jerks. No response to plantar st imulation bilaterally. Coordination preserved on [id number] testing. No dysmetria or tremor. Gait was not assessed. IMPRESSION: An 86-year-old lady who was admitted from senior living facility following generalize d seizure. IMAGING: She had CAT scan of the head and it shows absence of acute abnormality, mild volume loss, and some white matter disease. The patient, for whatever reason, was taking Topamax 100 mg twice daily. I increased the dose 150 m g twice daily. EEG pending. The patient has history of Alzheimer disease. She was also diagnosed with urinary tract infection a nd being treated by primary MD. Continue current treatment. Thank you very much for this interesting consultation. Dictated By: ESTRELLA MccoyV/MADHURI Conf#: [id number] DID#: [id number] CC: ISAC VELEZ MD; NAYA RAMOS MD;*End*
[2016-12-31] MEDS ORDERED: TOPIRAMATE 100 MG TAB PO SCH (21:00)
[2016-12-31] MEDS: ATORVASTATIN 20 MG TAB PO SCH (21:06)
[2016-12-31] MEDS: DONEPEZIL 10 MG TAB PO SCH (21:06)
[2017-01-01] MEDS: SOD CHLORIDE 0.9% 1,000 ML IV SCH ×4 (01:45→18:38)
[2017-01-01] MEDS: ACCUCHECK AT 2AM (Patients on SS coverage) XX SCH (02:00)
[2017-01-01] MEDS: GABAPENTIN 300 MG CAP PO SCH ×3 (04:03→20:45)
[2017-01-01] MEDS: CEFEPIME 1GM/50 ML (PMX) 50 ML IVPB SCH ×2 (05:09→13:51)
[2017-01-01] MEDS: metroNIDAZOLE 500 MG/NS (PMX) 100 ML IVPB SCH ×2 (05:49→14:45)
[2017-01-01 05:58] LABS: ADD SCAN DIFF NO
[2017-01-01 06:07] LABS: BASOPHILS % 0.5 % (0.0-2.0); EOSINOPHILS # 0.1 10^3/ul (0.0-0.5); EOSINOPHILS % 0.8 % (0.0-7.0); HEMATOCRIT 33.4 % (37.0-47.0); HEMOGLOBIN 10.4 g/dl (12.0-16.0); LYMPHOCYTES # 1.2 10^3/ul (0.8-2.9); LYMPHOCYTES % 13.9 % (15.0-51.0); MEAN CORPUSCULAR HEMOGLOBIN 32.6 pg (29.0-33.0); MEAN CORPUSCULAR HGB CONC 31.1 g/dl (32.0-37.0); MEAN CORPUSCULAR VOLUME 104.7 fl (82.0-101.0); MEAN PLATELET VOLUME 10.1 fl (7.4-10.4); MONOCYTE # 0.7 10^3/ul (0.3-0.9); MONOCYTES % 8.8 % (0.0-11.0); NEUTROPHIL # 6.3 10^3/ul (1.6-7.5); NEUTROPHILS % 75.6 % (39.0-77.0); PLATELET COUNT 173 10^3/UL (140-415); RED BLOOD COUNT 3.19 10^6/ul (4.20-5.40); RED CELL DISTRIBUTION WIDTH 11.9 % (11.5-14.5); WHITE BLOOD COUNT 8.3 10^3/ul (4.8-10.8)
[2017-01-01 06:20] LABS: PHOSPHORUS 2.7 mg/dl (2.5-4.9)
[2017-01-01 07:22] LABS: POTASSIUM 3.6 mmol/L (3.5-5.1)
[2017-01-01 07:25] LABS: CREATININE 0.57 mg/dl (0.44-1.00)
[2017-01-01 07:26] LABS: CALCIUM 8.4 mg/dl (8.4-10.2)
[2017-01-01] MEDS: INSULIN ASPART [NOVOLOG] 3 ML PEN SC SCH ×5 (07:42→20:47)
[2017-01-01 07:57] VITALS: BP 109/53; RESP 19
[2017-01-01] MEDS: TOPIRAMATE 100 MG TAB PO SCH ×2 (08:50→20:46)
[2017-01-01] MEDS: SENNA/DOCUSATE NA (8.6MG/50MG) TAB PO SCH ×2 (08:50→20:45)
[2017-01-01] MEDS: ASCORBIC ACID 500 MG TAB PO SCH (08:51)
[2017-01-01] MEDS: ZINC SULFATE 220 MG CAP PO SCH (08:51)
[2017-01-01] MEDS: FAMOTIDINE 20 MG TAB PO SCH (08:51)
[2017-01-01] MEDS: ASPIRIN (EC) 81 MG TAB PO SCH (08:51)
[2017-01-01] MEDS: SERTRALINE 50 MG TAB PO SCH (08:51)
[2017-01-01] MEDS: morphine (ER) 30 MG TAB PO SCH ×2 (08:51→20:47)
--- NOTE | 2017-01-01 10:14 | PN ---
Date/Time of Note Date/Time of Note DATE: 01/01/17 TIME: 09:55 Assessment/Plan VTE Prophylaxis VTE Prophylaxis Intervention: SCD's Lines/Catheters IV Catheter Type (from Nrsg): Peripheral IV Urinary Cath still in place: Yes Reason Cath still needed: other (indicate) (monitor UOP with plan to d/c within 24 hrs ) Assessment/Plan Assessment/Plan 86 yo female with 1. E coli UTI and bacteremia with right lower quadrant pain and findings of mild left hydronephrosis and a 6mm calculi at the origin of the UPJ. Hx of bladder stone s/p removal in 2014, was seen by Dr Thomas then. Continue cefepime and repeat blood cx today Urology consult with Dr Thomas, patient now stable for procedure if needed. 2. ? Seizure disorder with breakthrough seizure vs New onset seizures, appreciate recommendations from Dr Brown Continue Topamax at increased dose and EEG pending 3. Chronic constipation related to chronic opiate therapy. Agree with new bowel regimen with Colace, Senna, MiraLax and Relistor as needed. 4. Chronic pain: continue pain regimen 5. Schizoaffective disorder per records from SNF. Patient stable Continue current medications 6. Dementia, per report: stable currently 7. Hypothyroidism: not on Synthroid currently, check TFTs 8. Tobacco use: patient not wiling to quit and declining nicotine patch at this time Prophylaxis: SCds for dvdt ppx and PPI for GI ppx Disposition: Urology eval, IV abx, repeat blood cx today. Neurology following. Subjective 24 Hr Interval Summary Free Text/Dictation Patient doing well today with WBC wnl and renal function at baseline Blood cx with E coli sensitive to cefepime Urology consult with be placed today with Dr Thomas if possible re- left UPJ 6mm stone with mild left hydronephrosis Exam/Review of Systems Vital Signs Vitals Vital Signs Date Time Temp Pulse Resp B/P Pulse Ox O2 Delivery O2 Flow Rate FiO2 01/01/17 07:57 98.5 79 19 109/53 98 12/31/16 20:00 Nasal Cannula 2.0 Intake and Output 12/31/16 12/31/16 01/01/17 15:00 23:00 07:00 Intake Total 625 ml 1340 ml 1025 ml Output Total 550 ml 700 ml Balance 625 ml 790 ml 325 ml Exam Constitutional: alert, oriented, well developed Respiratory: clear to auscultation, normal air movement Cardiovascular: nl pulses, regular rate and rhythm Gastrointestinal: non-tender, soft Musculoskeletal: nl extremities to inspection, other (right foot DM ulcers ) Extremities: normal pulses, other (no edema, clubbing or cyanosis ) 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, nl mental status, nl speech, other (baseline strength ) Results Result Diagram: 01/01/17 0515 01/01/17 0515 Results 24 hrs Laboratory Tests Test 12/31/16 11:15 12/31/16 12:06 12/31/16 16:54 12/31/16 21:03 Bedside Glucose 116 105 145 Activated Partial Thromboplast Time 35.4 H INR International Normalized Ratio 1.29 Prothrombin Time 16.2 H Prothrombin Time Ratio 1.3 Test 01/01/17 05:15 01/01/17 07:15 Anion Gap 12 # Basophils # 0.0 Basophils % 0.5 Blood Urea Nitrogen 14 Calcium Level 8.4 Carbon Dioxide Level 24 Chloride Level 109 Creatinine 0.57 Eosinophils # 0.1 Eosinophils % 0.8 Free Thyroxine 0.88 Glucose Level 91 # Hematocrit 33.4 L Hemoglobin 10.4 #L Lymphocytes # 1.2 Lymphocytes % 13.9 L Magnesium Level 2.0 Mean Corpuscular Hemoglobin 32.6 Mean Corpuscular Hemoglobin Concent 31.1 L Mean Corpuscular Volume 104.7 H Mean Platelet Volume 10.1 Monocytes # 0.7 Monocytes % 8.8 Neutrophils # 6.3 Neutrophils % 75.6 Nucleated Red Blood Cells # 0.0 Nucleated Red Blood Cells % 0.0 Phosphorus Level 2.7 Platelet Count 173 # Potassium Level 3.6 Red Blood Count 3.19 #L Red Cell Distribution Width 11.9 Sodium Level 141 Thyroid Stimulating Hormone (TSH) 2.380 White Blood Count 8.3 # Bedside Glucose 97 Medications Medications Current Medications Acetaminophen (Tylenol Tab) 650 mg Q4H PRN PO MILD PAIN LEVEL 1-3; Start at 20:00 Ascorbic Acid (Vitamin C) 500 mg DAILY PO Last administered on 01/01/17 08:51; Admin Dose 500 MG; Start 12/31/16 at 09:00 Aspirin (Halfprin) 81 mg DAILY PO Last administered on 01/01/17 08:51; Admin Dose 81 MG; Start 12/31/16 at 09:00 Atorvastatin Calcium (Lipitor) 20 mg QHS PO Last administered on 12/31/16 21:06 ; Admin Dose 20 MG; Start 12/30/16 at 21:00 Donepezil HCl (Aricept) 10 mg QHS PO Last administered on 12/31/16 21:06; Admin Dose 10 MG; Start 12/30/16 at 21:00 Acetaminophen/ Hydrocodone Bitart ([place] (10/325)) 1 tab Q4H PRN PO pain; Start 12/30/16 at 20:00 Magnesium Hydroxide (Milk Of Mag) 30 ml Q24H PRN PO CONSTIPATION; Start at 20:00 Morphine Sulfate (Ms Contin (Er)) 60 mg BID PO Last administered on 01/01/17 08 :51; Admin Dose 60 MG; Start 12/30/16 at 21:00 Sodium Chloride ([place]) 1 spray TID PRN NASAL 1SPRAY IN EACH NOSTRIL; Start 12/30/16 at 20:00 Zinc Sulfate (Zinc Sulfate) 220 mg DAILY PO Last administered on 01/01/17 08:51 ; Admin Dose 220 MG; Start 12/31/16 at 09:00 Gabapentin (Neurontin) 600 mg Q8H PO Last administered on 01/01/17 04:03; Admin Dose 600 MG; Start 12/30/16 at 20:00 Senna/Docusate Sodium (Senokot-S) 2 tab BID PO Last administered on 01/01/17 08 :50; Admin Dose 2 TAB; Start 12/30/16 at 21:00 Polyethylene Glycol (Miralax) 17 gm Q12H PRN PO no bm >24 hours; Start 12/30/16 at 20:00 Methylnaltrexone [place] 12 mg 12 mg Q24H PRN SC no bm >24 hours; Start at 20:00 Cefepime HCl 50 ml @ 100 mls/hr Q8 IVPB Last administered on 01/01/17 05:09; Admin Dose 100 MLS/HR; Start 12/30/16 at 22:00 Metronidazole 100 ml @ 100 mls/hr Q8 IVPB Last administered on 01/01/17 05:49 ; Admin Dose 100 MLS/HR; Start 12/30/16 at 22:00 Sodium Chloride (NS) 1,000 ml @ 125 mls/hr Q8H IV Last administered on 01:45; Admin Dose 125 MLS/HR; Start 12/30/16 at 20:00 Famotidine (Pepcid) 20 mg DAILY PO Last administered on 01/01/17 08:51; Admin Dose 20 MG; Start 12/31/16 at 09:00 Diagnostic Test (Pha) (Accucheck) 1 ea 02 XX ; Start 12/31/16 at 02:00 Miscellaneous Information 1 ea NOTE XX ; Start 12/30/16 at 21:00 Glucose (Glutose) 15 gm Q15M PRN PO DECREASED GLUCOSE; Start 12/30/16 at 21:00 Glucose (Glutose) 22.5 gm Q15M PRN PO DECREASED GLUCOSE; Start 12/30/16 at 21:00 Dextrose (D50w Syringe) 25 ml Q15M PRN IV DECREASED GLUCOSE; Start 12/30/16 at 21:00 Dextrose (D50w Syringe) 50 ml Q15M PRN IV DECREASED GLUCOSE; Start 12/30/16 at 21:00 Glucagon (Glucagen) 1 mg Q15M PRN IM DECREASED GLUCOSE; Start 12/30/16 at 21:00 Glucose (Glutose) 15 gm Q15M PRN BUCCAL DECREASED GLUCOSE; Start 12/30/16 at 21: 00 Risperidone (Risperdal) 0.5 mg QPM PO Last administered on 12/31/16 17:43; Admin Dose 0.5 MG; Start 12/31/16 at 17:00 Sertraline HCl (Zoloft) 50 mg DAILY PO Last administered on 01/01/17 08:51; Admin Dose 50 MG; Start 01/01/17 at 09:00 Topiramate (Topamax) 150 mg BID PO Last administered on 01/01/17 08:50; Admin Dose 150 MG; Start 12/31/16 at 21:00 NAYA RAMOS Jan 01, 2017 10:05
[2017-01-01] MEDS: COLLAGENASE 30 GM TUBE TOP SCH (15:00)
--- NOTE | 2017-01-01 17:47 | CONS ---
DATE OF ADMISSION: 12/30/2016 DATE OF CONSULTATION: 01/01/2017 REQUESTING PHYSICIAN: Dr. Leyva. Dear Dr. Leyva: Thank you for asking me to see this patient in urological consultation. HISTORY OF PRESENT ILLNESS: This is an 86-year-old female who is a resident of a [facility] who was transferred to [facility] because of episode of seizure. Upon admi ssion to the hospital, the patient was found to have urinary tract infection and later on it was det ermined to be E. coli ESBL. Also, patient had a CT scan of the abdomen and pelvis and that showed a 6 mm stone in the distal left ureter at the ureterovesical junction; therefore, a urological consul tation was requested. The patient has had a history of stones in the past and in 2014 she had a sto ne in the bladder that was removed. The patient herself complains of pain in the right lower quadra nt. She did have some nausea and vomiting, but no fever or chills. The patient presently is awake, alert, and appears to be able to give some history. However, she is forgetful and she does not kno w the day of the week or the year. She initially thought that this was November but then on the sec ond time she said it is December. The patient does have a history of seizures and has been seen in a n eurology consultation. She does also have a history of chronic constipation related to opiate thera py, chronic pain and schizoaffective disorders. The patient has been on medication for that, keiry ia, and hypothyroidism. She was on Synthroid before. She used to be a smoker and still smoke and n ot willing to quit. The blood culture did show E. coli sensitive to cefepime. MEDICATIONS: Presently is on include: 1. Zoloft 50 mg daily. 2. Topamax 150 mg twice a day. 3. Risperdal 0.5 mg every afternoon. 4. Ascorbic acid 500 mg. 5. Aspirin 81 mg. 6. Zinc sulfate 220 mg daily. 7. Pepcid 20 mg. 8. She is on cefepime. 9. Flagyl. 10. Lipitor. 11. Aricept. 12. Morphine sulfate. 13. Senokot. 14. Insulin and sugar. 15. Magnesium hydroxide. 16. Gabapentin. 17. MiraLax. 18. Relistor. ALLERGIES: THE PATIENT HAS NO KNOWN DRUG ALLERGIES. PHYSICAL EXAMINATION: GENERAL: Reveals an elderly female. She weighs 65.4 kilograms. She is 62 inches tall. VITAL SIGNS: Temperature of 98.5, pulse 79, respirations 19, blood pressure 109/53. HEAD AND NECK: Unremarkable. LUNGS: Clear. ABDOMEN: Soft. She does have tenderness in the right lower quadrant. There is no abdominal mass p alpable. PELVIC: She does have an indwelling [place] catheter that is draining clear urine. She appears to be constipated, but there was no vaginal discharge or bleeding. EXTREMITIES: Reveal no edema. LABORATORY DATA: Her CBC shows a white count of 12,000 on admission, today is 8.3, hemoglobin was 1 3.6, today is 10.4, hematocrit 41.2 on admission 33.4 now. The BUN is 14, creatinine 0.57, sodium 1 41, potassium 3.6, chloride 109, CO2 24. PT is 16.2, INR 1.29, PTT 35.4. Urinalysis showed 3+ leuk ocyte esterase, 5 to 10 RBCs, more than 50 WBCs and many bacteria. Urine culture did show E. coli E SBL. Blood culture also did show gram-negative rods. The CT scan of the abdomen and pelvis was rep orted as bilateral nonobstructing renal calculi, mild left hydroureteronephrosis secondary to a 6 mm stone at the ureterovesical junction. She is post-cholecystectomy, presumed physiologic intra and extrahepatic bile duct dilatation. No evidence of appendicitis, diverticulosis or diverticulitis. 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 IMPRESSION: A 6 mm stone at the left ureterovesical junction and urinary tract infection and septi cemia. RECOMMENDATION: Initially, I did schedule her for 5:30 p.m. tomorrow to do a cystoscopy and uretero scopy and remove the stone; however, because of her urinary tract infection with Escherichia coli ex tended-spectrum beta-lactamase, I decided to wait until her infection is cleared and then we will ge t a KUB and see if we can see the stone and then we could follow the KUB and also follow her white c ount and if her white count comes down and KUB the stone could move and then we do not have to opera te on her. I will follow her urological problem with you. I do thank you for allowing me to help i n her care. Dictated By: CHANDAN DUNLAP/MADHURI Conf#: [id number] DID#: [id number]
--- NOTE | 2017-01-01 18:46 | SP ---
DATE OF PROCEDURE: INDICATION: An 86-year-old lady status post seizure, currently on Topamax. DESCRIPTION OF PROCEDURE: Routine EEG was recorded digitally. [id number] and uyanu-cv-epm jerry ages were recorded and reviewed. All impedances were measured and recorded. Cap electrodes were pl aced in accordance with International 10-20 system of electrode placement. FINDINGS: Symmetrically distributed background activity of low to medium amplitude ranging in frequ ency between 4-7 cycles per second was seen throughout the recording. Photic stimulation produces n o definite driving. The patient gets drowsy and falls asleep. Occasional slower waves and vertex w aves were observed. No epileptiform transients were seen. No signs of ongoing electrographic seizu res or lateralized slowing. IMPRESSION: Abnormal study secondary to background slowing, which could reflect presence of encepha lopathy, could be possibly postictal or toxic metabolic. Please correlate clinically. Dictated By: ESTRELLA MEDEL/MADHURI Conf#: [id number] DID#: [id number]
--- NOTE | 2017-01-01 19:12 | CONS ---
Date/Time of Note Date/Time of Note DATE: 01/01/17 TIME: 19:08 Consult Date/Type/Reason Admit Date/Time Dec 30, 2016 at 21:23 Initial Consult Date Type of Consultation: neurology Subjective no seizures Objective Vital Signs Date Time Temp Pulse Resp B/P Pulse Ox O2 Delivery O2 Flow Rate FiO2 01/01/17 08:20 Nasal Cannula 2.0 01/01/17 07:57 98.5 79 19 109/53 98 Intake and Output 12/31/16 12/31/16 01/01/17 15:00 23:00 07:00 Intake Total 625 ml 1340 ml 1025 ml Output Total 550 ml 700 ml Balance 625 ml 790 ml 325 ml Results/Medications Result Diagram: 01/01/17 0515 01/01/17 0515 Results 24 hrs Laboratory Tests Test 12/31/16 21:03 01/01/17 05:15 01/01/17 07:15 01/01/17 11:40 Bedside Glucose 145 97 156 Anion Gap 12 # Basophils # 0.0 Basophils % 0.5 Blood Urea Nitrogen 14 Calcium Level 8.4 Carbon Dioxide Level 24 Chloride Level 109 Creatinine 0.57 Eosinophils # 0.1 Eosinophils % 0.8 Free Thyroxine 0.88 Glucose Level 91 # Hematocrit 33.4 L Hemoglobin 10.4 #L Lymphocytes # 1.2 Lymphocytes % 13.9 L Magnesium Level 2.0 Mean Corpuscular Hemoglobin 32.6 Mean Corpuscular Hemoglobin Concent 31.1 L Mean Corpuscular Volume 104.7 H Mean Platelet Volume 10.1 Monocytes # 0.7 Monocytes % 8.8 Neutrophils # 6.3 Neutrophils % 75.6 Nucleated Red Blood Cells # 0.0 Nucleated Red Blood Cells % 0.0 Phosphorus Level 2.7 Platelet Count 173 # Potassium Level 3.6 Red Blood Count 3.19 #L Red Cell Distribution Width 11.9 Sodium Level 141 Thyroid Stimulating Hormone (TSH) 2.380 White Blood Count 8.3 # Test 01/01/17 17:05 Bedside Glucose 85 Medications Current Medications Acetaminophen (Tylenol Tab) 650 mg Q4H PRN PO MILD PAIN LEVEL 1-3; Start at 20:00 Ascorbic Acid (Vitamin C) 500 mg DAILY PO Last administered on 01/01/17t 08:51; Admin Dose 500 MG; Start 12/31/16 at 09:00 Aspirin (Halfprin) 81 mg DAILY PO Last administered on 01/01/17 08:51; Admin Dose 81 MG; Start 12/31/16 at 09:00 Atorvastatin Calcium (Lipitor) 20 mg QHS PO Last administered on 12/31/16 21:06 ; Admin Dose 20 MG; Start 12/30/16 at 21:00 Donepezil HCl (Aricept) 10 mg QHS PO Last administered on 12/31/16 21:06; Admin Dose 10 MG; Start 12/30/16 at 21:00 Acetaminophen/ Hydrocodone Bitart ([place] (10/325)) 1 tab Q4H PRN PO pain; Start 12/30/16 at 20:00 Magnesium Hydroxide (Milk Of Mag) 30 ml Q24H PRN PO CONSTIPATION; Start at 20:00 Morphine Sulfate (Ms Contin (Er)) 60 mg BID PO Last administered on 01/01/17 08 :51; Admin Dose 60 MG; Start 12/30/16 at 21:00 Sodium Chloride (Deep Sea) 1 spray TID PRN NASAL 1SPRAY IN EACH NOSTRIL; Start 12/30/16 at 20:00 Zinc Sulfate (Zinc Sulfate) 220 mg DAILY PO Last administered on 01/01/17 08:51 ; Admin Dose 220 MG; Start 12/31/16 at 09:00 Gabapentin (Neurontin) 600 mg Q8H PO Last administered on 01/01/17 12:39; Admin Dose 600 MG; Start 12/30/16 at 20:00 Senna/Docusate Sodium (Senokot-S) 2 tab BID PO Last administered on 01/01/17 08 :50; Admin Dose 2 TAB; Start 12/30/16 at 21:00 Polyethylene Glycol (Miralax) 17 gm Q12H PRN PO no bm >24 hours; Start 12/30/16 at 20:00 Methylnaltrexone [place] 12 mg 12 mg Q24H PRN SC no bm >24 hours; Start at 20:00 Sodium Chloride (NS) 1,000 ml @ 100 mls/hr Q10H IV Last administered on 18:38; Admin Dose 100 MLS/HR; Start 12/30/16 at 20:00 Famotidine (Pepcid) 20 mg DAILY PO Last administered on 01/01/17 08:51; Admin Dose 20 MG; Start 12/31/16 at 09:00 Diagnostic Test (Pha) (Accucheck) 1 ea 02 XX ; Start 12/31/16 at 02:00 Miscellaneous Information 1 ea NOTE XX ; Start 12/30/16 at 21:00 Glucose (Glutose) 15 gm Q15M PRN PO DECREASED GLUCOSE; Start 12/30/16 at 21:00 Glucose (Glutose) 22.5 gm Q15M PRN PO DECREASED GLUCOSE; Start 12/30/16 at 21:00 Dextrose (D50w Syringe) 25 ml Q15M PRN IV DECREASED GLUCOSE; Start 12/30/16 at 21:00 Dextrose (D50w Syringe) 50 ml Q15M PRN IV DECREASED GLUCOSE; Start 12/30/16 at 21:00 Glucagon (Glucagen) 1 mg Q15M PRN IM DECREASED GLUCOSE; Start 12/30/16 at 21:00 Glucose (Glutose) 15 gm Q15M PRN BUCCAL DECREASED GLUCOSE; Start 12/30/16 at 21: 00 Risperidone (Risperdal) 0.5 mg QPM PO Last administered on 12/31/16 17:43; Admin Dose 0.5 MG; Start 12/31/16 at 17:00 Sertraline HCl (Zoloft) 50 mg DAILY PO Last administered on 01/01/17 08:51; Admin Dose 50 MG; Start 01/01/17 at 09:00 Topiramate (Topamax) 150 mg BID PO Last administered on 01/01/17 08:50; Admin Dose 150 MG; Start 12/31/16 at 21:00 Collagenase (Santyl) 1 applic DAILY TOP ; Start 01/01/17 at 15:00 Tamsulosin HCl 0.4 mg 0.4 mg HS PO ; Start 01/01/17 at 21:00 Ertapenem/Sodium Chloride (Invanz/NS) 100 ml @ 200 mls/hr Q24H IVPB ; Start 01/01/17 at 18:30 Assessment/Plan Chief Complaint/Hosp Course PHYSICAL EXAMINATION: GENERAL: Not in acute distress, lying in bed. HEENT: Normocephalic, atraumatic head. NECK: No carotid bruits. No thyromegaly. LUNGS: Clear to auscultation bilaterally. CARDIAC: Normal cardiac rhythm and sounds. ABDOMEN: Soft, nontender. EXTREMITIES: No cyanosis, clubbing, or edema. Right heel covered with dressing. She claims to have some blisters there. NEUROLOGIC: She is awake, alert, and oriented x2 with fluent speech. Cranial nerve examination shows intact visual green bilaterally to visual threat. Pupils about 2 mm bilaterally, no definite reaction to light. Extraocular movements intact without nystagmus. Symmetrical face. Preserved facial strength and sensation. Tongue is in midline. Palate elevates symmetrically. Motor strength examination preserved in all extremities. Normal bulk, tone, and strength. Some give way in lower extremities secondary to back pain. Sensory examination grossly intact to light touch and pain. Deep tendon reflexes 2+ upper extremities, 1+ knee jerks, absent ankle jerks. No response to plantar stimulation bilaterally. Coordination preserved on [id number] testing. No dysmetria or tremor. Gait was not assessed. IMPRESSION: An 86-year-old lady who was admitted from long-term facility after generalized seizure.The patient has history of Alzheimer disease. 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 Topamax may worsen kidney stones. I'll start small dose keppra 250 bid x 2 weeks, 500 bid thereafter, if tolerates, then may taper off topamax by 50 mg bid weekly. So far same topamax for now Problems: ESTRELLA ROGERS MD Jan 01, 2017 19:11
[2017-01-01 20:12] VITALS: BP 128/60; RESP 16
[2017-01-01 20:30] VITALS: PULSE 62
[2017-01-01] MEDS: TAMSULOSIN (SR) 0.4 MG CAP PO SCH (20:46)
[2017-01-01] MEDS: DONEPEZIL 10 MG TAB PO SCH (20:46)
[2017-01-01] MEDS: ATORVASTATIN 20 MG TAB PO SCH (20:47)
[2017-01-01] MEDS: LEVETIRACETAM 250 MG TAB PO SCH (20:49)
[2017-01-01] MEDS: ERTAPENEM SODIUM 1 GM in SOD CHLORIDE 0.9% 100 ML IVPB SCH (20:57)
[2017-01-01] MEDS: RISPERIDONE 0.25 MG TAB PO SCH (21:00)
[2017-01-02] MEDS: ACCUCHECK AT 2AM (Patients on SS coverage) XX SCH (02:00)
[2017-01-02] MEDS: SOD CHLORIDE 0.9% 1,000 ML IV SCH ×2 (03:11→15:26)
[2017-01-02] MEDS: GABAPENTIN 300 MG CAP PO SCH ×3 (04:34→21:09)
[2017-01-02] MEDS: COLLAGENASE 30 GM TUBE TOP SCH ×2 (04:35→09:29)
[2017-01-02 05:05] LABS: ADD SCAN DIFF NO
[2017-01-02 05:24] LABS: BASOPHILS % 0.3 % (0.0-2.0); EOSINOPHILS # 0.1 10^3/ul (0.0-0.5); EOSINOPHILS % 1.7 % (0.0-7.0); HEMATOCRIT 34.4 % (37.0-47.0); HEMOGLOBIN 10.7 g/dl (12.0-16.0); LYMPHOCYTES # 1.4 10^3/ul (0.8-2.9); MEAN CORPUSCULAR HEMOGLOBIN 32.1 pg (29.0-33.0); MEAN CORPUSCULAR HGB CONC 31.1 g/dl (32.0-37.0); MEAN CORPUSCULAR VOLUME 103.3 fl (82.0-101.0); MONOCYTE # 0.6 10^3/ul (0.3-0.9); MONOCYTES % 9.8 % (0.0-11.0); NEUTROPHIL # 4.4 10^3/ul (1.6-7.5); PLATELET COUNT 178 10^3/UL (140-415); RED BLOOD COUNT 3.33 10^6/ul (4.20-5.40); RED CELL DISTRIBUTION WIDTH 11.9 % (11.5-14.5); WHITE BLOOD COUNT 6.5 10^3/ul (4.8-10.8)
[2017-01-02 05:29] LABS: POTASSIUM 3.6 mmol/L (3.5-5.1)
[2017-01-02 05:31] LABS: CREATININE 0.55 mg/dl (0.44-1.00)
[2017-01-02 05:32] LABS: CALCIUM 8.6 mg/dl (8.4-10.2)
[2017-01-02 05:44] LABS: MAGNESIUM 1.9 mg/dl (1.7-2.5)
[2017-01-02 07:52] VITALS: BP 108/54; RESP 17
[2017-01-02] MEDS: INSULIN ASPART [NOVOLOG] 3 ML PEN SC SCH ×4 (08:00→21:00)
--- NOTE | 2017-01-02 08:43 | RADRPT ---
PROCEDURE: XR Abdomen. CLINICAL INDICATION: Left UVJ stone TECHNIQUE: Single AP view of the abdomen is available for review. COMPARISON: CT, 12/30/2016 FINDINGS: Previously seen left UVJ calculus is not confidently identified radiographically. The bowel gas pat tern is unremarkable. There is no evidence of obstruction. Right upper quadrant surgical clips are s uggestive of prior cholecystectomy. Aortic atherosclerotic calcifications are noted. The osseous s tructures are remarkable for degenerative spondylosis of the spine. IMPRESSION: 1. No definite radiographic evidence of urinary calculus is identified. 2. Aortic atherosclerosis. 3. Unremarkable bowel gas pattern. RPTAT: EE .Bernardino Blas MD, MD Date Time Electronically viewed and signed by .Bernardino Blas MD, on 01/02/2017 08:43 .R/
[2017-01-02] MEDS: ASCORBIC ACID 500 MG TAB PO SCH (09:19)
[2017-01-02] MEDS: ZINC SULFATE 220 MG CAP PO SCH (09:19)
[2017-01-02] MEDS: TOPIRAMATE 100 MG TAB PO SCH ×2 (09:20→21:09)
[2017-01-02] MEDS: SERTRALINE 50 MG TAB PO SCH (09:20)
[2017-01-02] MEDS: FAMOTIDINE 20 MG TAB PO SCH (09:20)
[2017-01-02] MEDS: SENNA/DOCUSATE NA (8.6MG/50MG) TAB PO SCH ×2 (09:20→21:49)
[2017-01-02] MEDS: ASPIRIN (EC) 81 MG TAB PO SCH (09:21)
[2017-01-02] MEDS: LEVETIRACETAM 250 MG TAB PO SCH ×2 (09:21→21:09)
[2017-01-02] MEDS: morphine (ER) 30 MG TAB PO SCH ×2 (09:21→21:10)
[2017-01-02] MEDS ORDERED: LIDOCAINE 1% (MDV) 20 ML INJ SC ONE (14:00)
--- NOTE | 2017-01-02 14:02 | PN ---
Date/Time of Note Date/Time of Note DATE: 01/02/17 TIME: 14:02 Assessment/Plan VTE Prophylaxis VTE Prophylaxis Intervention: SCD's Lines/Catheters IV Catheter Type (from Nrsg): Peripheral IV Urinary Cath still in place: Yes Reason Cath still needed: other (indicate) (for ANGELITO) Assessment/Plan Assessment/Plan 86 yo female with 1. E coli UTI and bacteremia with right lower quadrant pain and findings of mild left hydronephrosis and a 6mm calculi at the origin of the UPJ. Hx of bladder stone s/p removal in 2014, was seen by Dr Thomas then. Changed abx to Imipenem, PICC line placement F/u repeat blood cx Repeat KUB today per Dr Thomas and further decision regarding timing of procedure, inpatient vs outpatient post abx regimen. 2. ? Seizure disorder with breakthrough seizure vs New onset seizures, appreciate recommendations from Dr Brown, modifying regimen to wean off Topamax eventually, Keppra started by Dr Brown Starting Keppra and plan of weaning Topamax as outpatient as increase risks for nephrolithiasis with Topamax. 3. Chronic constipation related to chronic opiate therapy. Agree with new bowel regimen with Colace, Senna, MiraLax and Relistor as needed. 4. Chronic pain: continue pain regimen, on MScontin chronically 5. Schizoaffective disorder per records from SNF. Patient stable Continue current medications 6. Dementia, per report: stable currently. 7. Tobacco use: patient not wiling to quit and declining nicotine patch at this time Prophylaxis: SCds for dvdt ppx and PPI for GI ppx Disposition: Appreciate recommendations from Dr Thomas, monitor another 24 hrs with repeat imaging in AM Neurology also following. Subjective 24 Hr Interval Summary Free Text/Dictation Patient dong OK and to have PICC line placed for abx today Exam/Review of Systems Vital Signs Vitals Vital Signs Date Time Temp Pulse Resp B/P Pulse Ox O2 Delivery O2 Flow Rate FiO2 01/02/17 09:21 Nasal Cannula 2.0 01/02/17 07:52 98.1 56 17 108/54 98 Intake and Output 01/01/17 01/01/17 01/02/17 14:59 22:59 06:59 Intake Total 675 ml 2150 ml 1600 ml Output Total 1200 ml 1150 ml Balance 675 ml 950 ml 450 ml Exam Constitutional: alert, oriented, well developed Respiratory: clear to auscultation, normal air movement Cardiovascular: nl pulses, regular rate and rhythm Gastrointestinal: non-tender, soft Genitourinary - Female: other (mendoza catheter in place) Musculoskeletal: nl extremities to inspection Extremities: normal pulses, other (no edema, clubbing or cyanosis ) 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, nl mental status, nl speech, other ( ambulating with walker with PT ) Results Result Diagram: 01/02/1744101/02/17441 Results 24 hrs Laboratory Tests Test 01/01/17 17:05 01/01/17 19:47 01/02/17 04:42 01/02/17 07:46 Bedside Glucose 85 110 91 Anion Gap 13 Basophils # 0.0 Basophils % 0.3 Blood Urea Nitrogen 11 Calcium Level 8.6 Carbon Dioxide Level 26 Chloride Level 111 H Creatinine 0.55 Eosinophils # 0.1 Eosinophils % 1.7 Glucose Level 86 Hematocrit 34.4 L Hemoglobin 10.7 L Lymphocytes # 1.4 Lymphocytes % 21.0 Magnesium Level 1.9 Mean Corpuscular Hemoglobin 32.1 Mean Corpuscular Hemoglobin Concent 31.1 L Mean Corpuscular Volume 103.3 H Mean Platelet Volume 10.0 Monocytes # 0.6 Monocytes % 9.8 Neutrophils # 4.4 Neutrophils % 67.0 Nucleated Red Blood Cells # 0.0 Nucleated Red Blood Cells % 0.0 Phosphorus Level 3.0 Platelet Count 178 Potassium Level 3.6 Red Blood Count 3.33 L Red Cell Distribution Width 11.9 Sodium Level 146 H White Blood Count 6.5 # Test 01/02/17 11:13 Bedside Glucose 102 Medications Medications Current Medications Acetaminophen (Tylenol Tab) 650 mg Q4H PRN PO MILD PAIN LEVEL 1-3; Start at 20:00 Ascorbic Acid (Vitamin C) 500 mg DAILY PO Last administered on 01/02/17 09:19; Admin Dose 500 MG; Start 12/31/16 at 09:00 Aspirin (Halfprin) 81 mg DAILY PO Last administered on 01/02/17 09:21; Admin Dose 81 MG; Start 12/31/16 at 09:00 Atorvastatin Calcium (Lipitor) 20 mg QHS PO Last administered on 01/01/17 20:47 ; Admin Dose 20 MG; Start 12/30/16 at 21:00 Donepezil HCl (Aricept) 10 mg QHS PO Last administered on 01/01/17 20:46; Admin Dose 10 MG; Start 12/30/16 at 21:00 Acetaminophen/ Hydrocodone Bitart ([place] (10/325)) 1 tab Q4H PRN PO pain; Start 12/30/16 at 20:00 Magnesium Hydroxide (Milk Of Mag) 30 ml Q24H PRN PO CONSTIPATION; Start at 20:00 Morphine Sulfate (Ms Contin (Er)) 60 mg BID PO Last administered on 01/02/17 09 :21; Admin Dose 60 MG; Start 12/30/16 at 21:00 Sodium Chloride (Deep Sea) 1 spray TID PRN NASAL 1SPRAY IN EACH NOSTRIL; Start 12/30/16 at 20:00 Zinc Sulfate (Zinc Sulfate) 220 mg DAILY PO Last administered on 01/02/17 09:19 ; Admin Dose 220 MG; Start 12/31/16 at 09:00 Gabapentin (Neurontin) 600 mg Q8H PO Last administered on 01/02/17 11:45; Admin Dose 600 MG; Start 12/30/16 at 20:00 Senna/Docusate Sodium (Senokot-S) 2 tab BID PO Last administered on 01/02/17 09 :20; Admin Dose 2 TAB; Start 12/30/16 at 21:00 Polyethylene Glycol (Miralax) 17 gm Q12H PRN PO no bm >24 hours; Start 12/30/16 at 20:00 Methylnaltrexone [place] 12 mg 12 mg Q24H PRN SC no bm >24 hours; Start at 20:00 Sodium Chloride (NS) 1,000 ml @ 100 mls/hr Q10H IV Last administered on 03:11; Admin Dose 100 MLS/HR; Start 12/30/16 at 20:00 Famotidine (Pepcid) 20 mg DAILY PO Last administered on 01/02/17 09:20; Admin Dose 20 MG; Start 12/31/16 at 09:00 Diagnostic Test (Pha) (Accucheck) 1 ea 02 XX ; Start 12/31/16 at 02:00 Miscellaneous Information 1 ea NOTE XX ; Start 12/30/16 at 21:00 Glucose (Glutose) 15 gm Q15M PRN PO DECREASED GLUCOSE; Start 12/30/16 at 21:00 Glucose (Glutose) 22.5 gm Q15M PRN PO DECREASED GLUCOSE; Start 12/30/16 at 21:00 Dextrose (D50w Syringe) 25 ml Q15M PRN IV DECREASED GLUCOSE; Start 12/30/16 at 21:00 Dextrose (D50w Syringe) 50 ml Q15M PRN IV DECREASED GLUCOSE; Start 12/30/16 at 21:00 Glucagon (Glucagen) 1 mg Q15M PRN IM DECREASED GLUCOSE; Start 12/30/16 at 21:00 Glucose (Glutose) 15 gm Q15M PRN BUCCAL DECREASED GLUCOSE; Start 12/30/16 at 21: 00 Risperidone (Risperdal) 0.5 mg QPM PO Last administered on 12/31/16 17:43; Admin Dose 0.5 MG; Start 12/31/16 at 17:00 Sertraline HCl (Zoloft) 50 mg DAILY PO Last administered on 01/02/17 09:20; Admin Dose 50 MG; Start 01/01/17 at 09:00 Topiramate (Topamax) 150 mg BID PO Last administered on 01/02/17 09:20; Admin Dose 150 MG; Start 12/31/16 at 21:00 Collagenase (Santyl) 1 applic DAILY TOP Last administered on 01/02/17 09:29; Admin Dose 1 APPLIC; Start 01/01/17 at 15:00 Tamsulosin HCl 0.4 mg 0.4 mg HS PO Last administered on 01/01/17 20:46; Admin Dose 0.4 MG; Start 01/01/17 at 21:00 Ertapenem/Sodium Chloride (Invanz/NS) 100 ml @ 200 mls/hr Q24H IVPB Last administered on 01/01/17 20:57; Admin Dose 200 MLS/HR; Start 01/01/17 at 18:30 Levetiracetam (Keppra) 250 mg BID PO Last administered on 01/02/17 09:21; Admin Dose 250 MG; Start 01/01/17 at 21:00 Lidocaine (Xylocaine 1% (Mdv) 20 ml) 20 ml ONCE ONCE SC ; Start 01/02/17 at 14: 00; Stop 01/02/17 at 14:01; Status NAYA BRANNON Jan 02, 2017 14:02
[2017-01-02] MEDS: ERTAPENEM SODIUM 1 GM in SOD CHLORIDE 0.9% 100 ML IVPB SCH ×2 (18:30→20:00)
[2017-01-02 19:45] VITALS: BP 103/51; RESP 16
[2017-01-02] MEDS: RISPERIDONE 0.25 MG TAB PO SCH (21:09)
[2017-01-02] MEDS: TAMSULOSIN (SR) 0.4 MG CAP PO SCH (21:09)
[2017-01-02] MEDS: DONEPEZIL 10 MG TAB PO SCH (21:10)
--- NOTE | 2017-01-02 21:20 | RADRPT ---
PROCEDURE: US guidance for PICC line CLINICAL INDICATION: PICC line placement TECHNIQUE: Multiple real-time images were acquired of the patient's arm utilizing a high resolutio n transducer. This was performed by the PICC line nurse for venous access. COMPARISON: None FINDINGS: Ultrasound guidance for PICC line placement. IMPRESSION: Ultrasound guidance for PICC line placement. RPTAT: AA .Grzegorz Caban MD, MD Date Time Electronically viewed and signed by .Grzegorz Caban MD, on 01/02/2017 21:20 .S/
[2017-01-02] MEDS: ATORVASTATIN 20 MG TAB PO SCH (21:49)
[2017-01-02 23:00] VITALS: PULSE 58
[2017-01-03] MEDS: ACCUCHECK AT 2AM (Patients on SS coverage) XX SCH (02:00)
[2017-01-03] MEDS: SOD CHLORIDE 0.9% 1,000 ML IV SCH ×2 (02:25→04:14)
--- NOTE | 2017-01-03 03:43 | PN ---
DATE: 01/02/2017 SUBJECTIVE: The patient has a 6 mm left ureterovesicular junction stone and urinary tract infection and septicemia. The patient feeling comfortable today. She denies having any pain. OBJECTIVE: VITAL SIGNS: Her temperature is 98.1, respirations 17, pulse 56, blood pressure 108/54. ABDOMEN: Soft and there is no tenderness. LABORATORY DATA: Her CBC today shows a white count of 6.5, hemoglobin 10.7, hematocrit 34.4. BUN i s 11, creatinine 0.55, sodium 146, potassium 3.6, chloride 111, CO2 26. The urine culture from 3 da ys earlier shows E. coli, ESBL, and Proteus mirabilis. Blood culture shows Proteus mirabilis. MEDICATIONS: The patient's medications were reviewed and mainly she is on: 1. Tamsulosin 0.4 mg to help see if she could pass the stone. 2. She is on Keppra because of history of convulsions. 3. Ertapenem for the ESBL infection. 4. She is on Sertraline 50 mg. 5. Topamax. 6. Risperdal. 7. Ascorbic acid. 8. Aspirin. 9. Zinc sulfate. 10. Pepcid. 11. Atorvastatin. 12. Aricept. 13. Senokot. 14. Insulin. 15. Gabapentin. 16. MiraLax. IMPRESSION: Distal left ureteral stone at the ureterovesical junction and the patient did have a KU B taken and that failed to show the stone. That is either because the stone is not radiopaque or it is obscured by the bowel contents. The patient could well also have passed a stone, but straining the urine did not yield anything. She also does have a urinary tract infection and septicemia. RECOMMENDATION: At the present is to continue to strain the urine, continue her antibiotic and mayb e we will repeat the KUB one more time to see if one could visualize that stone. Dictated By: CHANDAN DUNLAP/MADHURI Conf#: [id number] DID#: [id number]
[2017-01-03] MEDS: GABAPENTIN 300 MG CAP PO SCH ×3 (04:14→20:40)
[2017-01-03 06:17] LABS: ADD SCAN DIFF NO
[2017-01-03 06:28] LABS: BASOPHILS % 0.5 % (0.0-2.0); EOSINOPHILS # 0.1 10^3/ul (0.0-0.5); HEMOGLOBIN 10.2 g/dl (12.0-16.0); LYMPHOCYTES # 1.5 10^3/ul (0.8-2.9); MEAN CORPUSCULAR HEMOGLOBIN 32.6 pg (29.0-33.0); MEAN CORPUSCULAR HGB CONC 30.9 g/dl (32.0-37.0); MEAN CORPUSCULAR VOLUME 105.4 fl (82.0-101.0); MEAN PLATELET VOLUME 10.1 fl (7.4-10.4); MONOCYTE # 0.5 10^3/ul (0.3-0.9); MONOCYTES % 9.5 % (0.0-11.0); NEUTROPHIL # 3.3 10^3/ul (1.6-7.5); NEUTROPHILS % 60.8 % (39.0-77.0); PLATELET COUNT 197 10^3/UL (140-415); RED BLOOD COUNT 3.13 10^6/ul (4.20-5.40); RED CELL DISTRIBUTION WIDTH 11.9 % (11.5-14.5); WHITE BLOOD COUNT 5.5 10^3/ul (4.8-10.8)
[2017-01-03 06:37] LABS: POTASSIUM 3.6 mmol/L (3.5-5.1)
[2017-01-03 06:38] LABS: PHOSPHORUS 3.1 mg/dl (2.5-4.9)
[2017-01-03 06:39] LABS: CREATININE 0.59 mg/dl (0.44-1.00); MAGNESIUM 1.9 mg/dl (1.7-2.5)
[2017-01-03 06:40] LABS: CALCIUM 8.4 mg/dl (8.4-10.2)
[2017-01-03] MEDS: INSULIN ASPART [NOVOLOG] 3 ML PEN SC SCH ×4 (08:00→20:53)
[2017-01-03 08:07] VITALS: BP 131/63; RESP 18
[2017-01-03] MEDS: FAMOTIDINE 20 MG TAB PO SCH (08:20)
[2017-01-03] MEDS: ASPIRIN (EC) 81 MG TAB PO SCH (08:20)
[2017-01-03] MEDS: SENNA/DOCUSATE NA (8.6MG/50MG) TAB PO SCH ×2 (08:20→20:41)
[2017-01-03] MEDS: LEVETIRACETAM 250 MG TAB PO SCH ×2 (08:20→23:30)
[2017-01-03] MEDS: ZINC SULFATE 220 MG CAP PO SCH (08:20)
[2017-01-03] MEDS: SERTRALINE 50 MG TAB PO SCH (08:21)
[2017-01-03] MEDS: TOPIRAMATE 100 MG TAB PO SCH ×2 (08:21→20:44)
[2017-01-03] MEDS: ASCORBIC ACID 500 MG TAB PO SCH (08:21)
[2017-01-03] MEDS: COLLAGENASE 30 GM TUBE TOP SCH ×2 (08:22→14:00)
[2017-01-03] MEDS: morphine (ER) 30 MG TAB PO SCH ×3 (08:23→20:40)
--- NOTE | 2017-01-03 09:06 | PN ---
DATE: 01/03/2017 SUBJECTIVE: Distal left ureteral stone and left hydroureter and urinary tract infection. The patie nt herself is feeling uncomfortable. She denies any pain. OBJECTIVE: VITAL SIGNS: Temperature is 97.9, pulse is 51, respirations 18, blood pressure 131/63. ABDOMEN: Soft. GENITOURINARY: The Clifton catheter that she has is draining clear urine. No stone has been recovere d from the Clifton catheter. ASSESSMENT: The patient is on Flomax to help her pass the stone and because of her infection with ES BL, she is on ertapenem. PLAN: To continue the same treatment and we should discontinue the Clif[place] catheter and see that she does urinate on her own. Dictated By: CHANDAN DUNLAP/MADHURI Conf#: [id number] DID#: [id number]
--- NOTE | 2017-01-03 09:24 | RADRPT ---
PROCEDURE: XR Chest. CLINICAL INDICATION: Check PICC line position. TECHNIQUE: Single frontal view. COMPARISON: Prior study done earlier the same day. FINDINGS: There is a left arm PICC line with the tip in the upper superior vena cava. There is left basilar a ir space disease consistent with atelectasis or pneumonia. There is mild right basilar atelectasis. The lungs are otherwise clear. The heart is enlarged. There is no pleural effusion. There is no pneumothorax. IMPRESSION: 1. Satisfactory position of left arm PICC line. 2. Left basilar atelectasis or pneumonia. 3. Mild right basilar atelectasis. 4. Cardiomegaly. RPTAT: QQ .Yasmany Mata MD, MD Date Time Electronically viewed and signed by .Yasmany Mata MD, on 01/03/2017 09:23 .R/
--- NOTE | 2017-01-03 09:25 | RADRPT ---
PROCEDURE: XR Chest. CLINICAL INDICATION: Check PICC line position. TECHNIQUE: Single frontal view. COMPARISON: 12/30/2016. FINDINGS: There is a left arm PICC line with the tip in the upper superior vena cava. There is left basilar a telectasis or pneumonia and mild right basilar atelectasis. The lungs are otherwise clear. The heart is enlarged There is no pleural effusion. There is no pneumothorax. IMPRESSION: 1. Satisfactory position of left arm PICC line. 2. Left basilar atelectasis or pneumonia. 3. Mild right basilar atelectasis. 4. Cardiomegaly. RPTAT: QQ .Yasmany Mata MD, MD Date Time Electronically viewed and signed by .Yasmany Mata MD, MD on 01/03/2017 09:24 .R/
--- NOTE | 2017-01-03 10:21 | RADRPT ---
PROCEDURE: US Renal CLINICAL INDICATION: Hydronephrosis. TECHNIQUE: Multiple sonographic images of the kidneys and bladder were obtained. Evaluation of th e kidneys and bladder was performed as well with kohler scale and color and Doppler evaluation using a curved array transducer. The images were reviewed on a high-resolution PACS workstation. COMPARISON: CT abdomen pelvis from 12/30/2016. FINDINGS: The right kidney measures 11.0 cm. The left kidney measures 10.1 cm. There is normal echogenicity within the parenchyma of the kidneys bilaterally. There is persistent mild left-sided hydronephrosis present. There are tiny echogenic foci in both kidneys which may represent calculi.. No perinephric fluid collection is seen. There is a Clifton catheter in the urinary bladder. There is a small amount of ascites present. IMPRESSION: 1. Persistent mild left-sided hydronephrosis. 2. Faint echogenic foci in both kidneys which may represent small calculi. RPTAT: [facility] Physician Mellisa Date Time Electronically viewed and signed by Physician Mellisa on 01/03/2017 10:20 /
--- NOTE | 2017-01-03 11:50 | RADRPT ---
PROCEDURE: XR Abdomen. CLINICAL INDICATION: History of distal left ureter calculus. TECHNIQUE: AP supine abdomen x-ray. COMPARISON: Abdomen radiograph dated 01/01/2017. CT scan of abdomen and pelvis dated 12/30/2016 wh ich demonstrated bilateral nonobstructing renal calculi and a 0.6 cm calculus at the left ureteroves icle junction. FINDINGS: The bowel gas pattern is normal with no evidence of obstruction. Surgical clips are present in the right upper quadrant of the abdomen from previous cholecystectomy. Small bilateral renal calculi seen on prior CT scan are not visualized on plain radiograph. The a 0 .6 cm calculus at the left ureterovesicle junction is also not definitively visualized. There are degenerative changes of the spine. Vascular calcifications are present consistent with at herosclerosis. IMPRESSION: 1. Prior cholecystectomy. 2. Bilateral renal calculi and calculus at the left ureterovesicle junction seen on prior CT scan a re not visualized on plain radiograph. 3. Degenerative changes of the spine. 4. Atherosclerosis. RPTAT: QQ .Yasmany Mata MD, Date Time Electronically viewed and signed by .Yasmany Mata MD, on 01/03/2017 11:49 .R/
--- NOTE | 2017-01-03 12:17 | PN ---
Date/Time of Note Date/Time of Note DATE: 01/03/17 TIME: 11:48 Assessment/Plan VTE Prophylaxis VTE Prophylaxis Intervention: SCD's Lines/Catheters IV Catheter Type (from Nrsg): PICC Line Central line still needed: Yes (IV abx ) Urinary Cath still in place: Yes Reason Cath still needed: other (indicate) (d/c today ) Assessment/Plan Assessment/Plan 86 yo female with 1. E coli UTI and bacteremia with right lower quadrant pain and findings of mild left hydronephrosis and a 6mm calculi at the origin of the UPJ. Hx of bladder stone s/p removal in 2014, was seen by Dr Thomas then. S/p PICC Line placemnt Changed abx to Imipenem but according to lab 2nd organism Proteus is only intermediate sensitive but sensitive to Cefepime Will change abx back to cefepime Repeat blood cx NGTD x 2 days Repeat KUB today per Dr Thomas and further decision regarding timing of procedure, inpatient vs outpatient post abx regimen. 2. Left nephrolithiasis: assuming still persistent since with mild left hydronephrosis still on today's Renal US, on Flomax, KUB pending and d/c plan today if Ok with Urology 3. ? Seizure disorder with breakthrough seizure vs New onset seizures, appreciate recommendations from Dr Brown, modifying regimen to wean off Topamax eventually, Keppra started by Dr Brown Starting Keppra and plan of weaning Topamax as outpatient as increase risks for nephrolithiasis with Topamax. 4. Chronic constipation related to chronic opiate therapy. Agree with new bowel regimen with Colace, Senna, MiraLax and Relistor as needed. 5. Chronic pain: continue pain regimen, on MScontin chronically 6. Schizoaffective disorder per records from SNF. Patient stable Continue current medications 7. Dementia, per report: stable currently. 8. Tobacco use: patient not wiling to quit and declining nicotine patch at this time Prophylaxis: SCds for dvdt ppx and PPI for GI ppx Disposition: Appreciate recommendations from Dr Thomas, monitor another 24 hrs with repeat imaging in AM Neurology also following. Subjective 24 Hr Interval Summary Free Text/Dictation Patient doing OK Complaining of some generalized abdo pain chronic and still no BM for a couple days per RN, bowel regimen being adjusted Renal US unchanged with mild left hydronephrosis, KUB pending and will follow up discharge plan with Dr Thomas, hopefully can go back to SNF with isolation for ESBL today, abx re adjusted based on sensitivities Exam/Review of Systems Vital Signs Vitals Vital Signs Date Time Temp Pulse Resp B/P Pulse Ox O2 Delivery O2 Flow Rate FiO2 01/03/17 08:07 97.9 51 18 131/63 96 01/03/17 08:00 Nasal Cannula 2.0 Intake and Output 01/02/17 01/02/17 01/03/17 15:00 23:00 07:00 Intake Total 1080 ml 1250 ml Output Total 700 ml 500 ml Balance 380 ml 750 ml Exam Constitutional: alert, oriented, well developed Respiratory: clear to auscultation, normal air movement Cardiovascular: nl pulses, regular rate and rhythm Gastrointestinal: soft, tender (mild diffuse., chronic per patient ) Musculoskeletal: nl extremities to inspection, other (using Walker for ambulation ) Extremities: normal pulses, other (no edema, clubbing or cyanosis ) Neurological: FIRST AID INSTRUCTOR II-XII intact, nl speech, other (getting stronger, using walker for ambulation ) Results Result Diagram: 01/03/17 0501/03/17 0510 Results 24 hrs Laboratory Tests Test 01/02/17 17:31 01/02/17 21:48 01/03/17 05:10 01/03/17 07:43 Bedside Glucose 99 100 94 Anion Gap 12 Basophils # 0.0 Basophils % 0.5 Blood Urea Nitrogen 11 Calcium Level 8.4 Carbon Dioxide Level 28 Chloride Level 111 H Creatinine 0.59 Eosinophils # 0.1 Eosinophils % 2.0 Glucose Level 99 Hematocrit 33.0 L Hemoglobin 10.2 L Lymphocytes # 1.5 Lymphocytes % 27.0 Magnesium Level 1.9 Mean Corpuscular Hemoglobin 32.6 Mean Corpuscular Hemoglobin Concent 30.9 L Mean Corpuscular Volume 105.4 H Mean Platelet Volume 10.1 Monocytes # 0.5 Monocytes % 9.5 Neutrophils # 3.3 Neutrophils % 60.8 Nucleated Red Blood Cells # 0.0 Nucleated Red Blood Cells % 0.0 Phosphorus Level 3.1 Platelet Count 197 Potassium Level 3.6 Red Blood Count 3.13 L Red Cell Distribution Width 11.9 Sodium Level 147 H White Blood Count 5.5 Test 01/03/17 11:46 Bedside Glucose 114 Medications Medications Current Medications Acetaminophen (Tylenol Tab) 650 mg Q4H PRN PO MILD PAIN LEVEL 1-3; Start at 20:00 Ascorbic Acid (Vitamin C) 500 mg DAILY PO Last administered on 01/03/17 08:21 ; Admin Dose 500 MG; Start 12/31/16 at 09:00 Aspirin (Halfprin) 81 mg DAILY PO Last administered on 01/03/17 08:20; Admin Dose 81 MG; Start 12/31/16 at 09:00 Atorvastatin Calcium (Lipitor) 20 mg QHS PO Last administered on 01/02/17 21:49 ; Admin Dose 20 MG; Start 12/30/16 at 21:00 Donepezil HCl (Aricept) 10 mg QHS PO Last administered on 01/02/17 21:10; Admin Dose 10 MG; Start 12/30/16 at 21:00 Acetaminophen/ Hydrocodone Bitart ([place] (10)) 1 tab Q4H PRN PO pain; Start 12/30/16 at 20:00 Magnesium Hydroxide (Milk Of Mag) 30 ml Q24H PRN PO CONSTIPATION; Start at 20:00 Morphine Sulfate (Ms Contin (Er)) 60 mg BID PO Last administered on 01/03/17 08:43; Admin Dose 60 MG; Start 12/30/16 at 21:00 Sodium Chloride ([place]) 1 spray TID PRN NASAL 1SPRAY IN EACH NOSTRIL; Start 12/30/16 at 20:00 Zinc Sulfate (Zinc Sulfate) 220 mg DAILY PO Last administered on 01/03/17 08: 20; Admin Dose 220 MG; Start 12/31/16 at 09:00 Gabapentin (Neurontin) 600 mg Q8H PO Last administered on 01/03/17 04:14; Admin Dose 600 MG; Start 12/30/16 at 20:00 Senna/Docusate Sodium (Senokot-S) 2 tab BID PO Last administered on 01/03/17 08:20; Admin Dose 2 TAB; Start 12/30/16 at 21:00 Polyethylene Glycol (Miralax) 17 gm Q12H PRN PO no bm >24 hours; Start 12/30/16 at 20:00 Methylnaltrexone [place] (Relistor) 12 mg Q24H PRN SC no bm >24 hours; Start at 20:00 Famotidine (Pepcid) 20 mg DAILY PO Last administered on 01/03/17 08:20; Admin Dose 20 MG; Start 12/31/16 at 09:00 Diagnostic Test (Pha) (Accucheck) 1 ea 02 XX ; Start 12/31/16 at 02:00 Miscellaneous Information 1 ea NOTE XX ; Start 12/30/16 at 21:00 Glucose (Glutose) 15 gm Q15M PRN PO DECREASED GLUCOSE; Start 12/30/16 at 21:00 Glucose (Glutose) 22.5 gm Q15M PRN PO DECREASED GLUCOSE; Start 12/30/16 at 21:00 Dextrose (D50w Syringe) 25 ml Q15M PRN IV DECREASED GLUCOSE; Start 12/30/16 at 21:00 Dextrose (D50w Syringe) 50 ml Q15M PRN IV DECREASED GLUCOSE; Start 12/30/16 at 21:00 Glucagon (Glucagen) 1 mg Q15M PRN IM DECREASED GLUCOSE; Start 12/30/16 at 21:00 Glucose (Glutose) 15 gm Q15M PRN BUCCAL DECREASED GLUCOSE; Start 12/30/16 at 21: 00 Risperidone (Risperdal) 0.5 mg QPM PO Last administered on 01/02/17 21:09; Admin Dose 0.5 MG; Start 12/31/16 at 17:00 Sertraline HCl (Zoloft) 50 mg DAILY PO Last administered on 01/03/17 08:21; Admin Dose 50 MG; Start 01/01/17 at 09:00 Topiramate (Topamax) 150 mg BID PO Last administered on 01/03/17 08:21; Admin Dose 150 MG; Start 12/31/16 at 21:00 Collagenase (Santyl) 1 applic DAILY TOP Last administered on 01/03/17 08:22; Admin Dose 1 APPLIC; Start 01/01/17 at 15:00 Tamsulosin HCl 0.4 mg 0.4 mg HS PO Last administered on 01/02/17 21:09; Admin Dose 0.4 MG; Start 01/01/17 at 21:00 Ertapenem/Sodium Chloride (Invanz/NS) 100 ml @ 200 mls/hr Q24H IVPB Last administered on 3/9/17at 18:30; Admin Dose 200 MLS/HR; Start 01/01/17 at 18:30 Levetiracetam (Keppra) 250 mg BID PO Last administered on 01/03/17t 08:20; Admin Dose 250 MG; Start 01/01/17 at 21:00 IV Flush (NS 10 ml) 10 ml PRN PRN IV IV PROTOCOL; Start 01/02/17 at 19:00 NAYA RAMOS Jan 03, 2017 11:59
[2017-01-03] MEDS: POLYETHYLENE GLYCOL 17 GM PACKET PO SCH ×2 (12:30→20:41)
[2017-01-03] MEDS: CEFEPIME 2GM/50 ML (PMX) 50 ML IVPB SCH ×2 (13:53→23:30)
[2017-01-03] MEDS: TAMSULOSIN (SR) 0.4 MG CAP PO SCH (20:40)
[2017-01-03] MEDS: ATORVASTATIN 20 MG TAB PO SCH (20:40)
[2017-01-03] MEDS: DONEPEZIL 10 MG TAB PO SCH (20:40)
[2017-01-03] MEDS: RISPERIDONE 0.25 MG TAB PO SCH (20:41)
[2017-01-03] MEDS ORDERED: SOD CHLORIDE 0.9% 100 ML ONE (21:09)
[2017-01-03 21:32] VITALS: BP 135/52; RESP 18
[2017-01-04] MEDS: ACCUCHECK AT 2AM (Patients on SS coverage) XX SCH (02:00)
[2017-01-04] MEDS: GABAPENTIN 300 MG CAP PO SCH ×3 (04:23→20:00)
[2017-01-04] MEDS: INSULIN ASPART [NOVOLOG] 3 ML PEN SC SCH ×4 (07:45→21:00)
[2017-01-04 08:17] VITALS: BP 145/64; RESP 16
[2017-01-04] MEDS: SENNA/DOCUSATE NA (8.6MG/50MG) TAB PO SCH ×2 (09:41→21:00)
[2017-01-04] MEDS: CEFEPIME 2GM/50 ML (PMX) 50 ML IVPB SCH ×2 (09:41→23:39)
[2017-01-04] MEDS: ZINC SULFATE 220 MG CAP PO SCH (09:41)
[2017-01-04] MEDS: ASCORBIC ACID 500 MG TAB PO SCH (09:41)
[2017-01-04] MEDS: TOPIRAMATE 100 MG TAB PO SCH ×2 (09:41→21:00)
[2017-01-04] MEDS: SERTRALINE 50 MG TAB PO SCH (09:41)
[2017-01-04] MEDS: FAMOTIDINE 20 MG TAB PO SCH (09:41)
[2017-01-04] MEDS: POLYETHYLENE GLYCOL 17 GM PACKET PO SCH ×2 (09:41→21:00)
[2017-01-04] MEDS: LEVETIRACETAM 250 MG TAB PO SCH ×2 (09:41→21:00)
[2017-01-04] MEDS: ASPIRIN (EC) 81 MG TAB PO SCH (09:41)
[2017-01-04] MEDS: morphine (ER) 30 MG TAB PO SCH ×2 (09:42→21:00)
[2017-01-04] MEDS: COLLAGENASE 30 GM TUBE TOP SCH (09:42)
--- NOTE | 2017-01-04 09:54 | PN ---
Date/Time of Note Date/Time of Note DATE: 01/04/17 TIME: 09:48 Assessment/Plan VTE Prophylaxis VTE Prophylaxis Intervention: SCD's Lines/Catheters IV Catheter Type (from Nrsg): PICC Line Central line still needed: No Urinary Cath still in place: No Assessment/Plan Chief Complaint/Hosp Course 86 yo with ESBL e coli urosepsis,on cefepime L nephrolithiasis mild hydro awaiting SNF placement when isolation bed available cont current RX Problems: Subjective 24 Hr Interval Summary Constitutional: no complaints Exam/Review of Systems Vital Signs Vitals Vital Signs Date Time Temp Pulse Resp B/P Pulse Ox O2 Delivery O2 Flow Rate FiO2 01/04/17 08:17 98.1 45 16 145/64 93 01/03/17 20:00 Nasal Cannula 2.0 Intake and Output 01/03/17 01/03/17 01/04/17 15:00 23:00 07:00 Intake Total 400 ml 770 ml 50 ml Output Total 500 ml Balance 400 ml 270 ml 50 ml Exam Constitutional: alert, oriented Neck: non-tender, supple Respiratory: clear to auscultation Cardiovascular: regular rate and rhythm Gastrointestinal: bowel sounds, non-tender, soft Extremities: edema, No calf tenderness, No clubbing, No cyanosis, No normal pulses, No other, No palpable cord, No pitting pedal edema, No tenderness Results Result Diagram: 01/03/17 0510 01/03/17 0510 Results 24 hrs Laboratory Tests Test 01/03/17 11:46 01/03/17 16:54 01/03/17 20:52 01/04/17 07:42 Bedside Glucose 114 109 95 83 Medications Medications Current Medications Acetaminophen (Tylenol Tab) 650 mg Q4H PRN PO MILD PAIN LEVEL 1-3; Start at 20:00 Ascorbic Acid (Vitamin C) 500 mg DAILY PO Last administered on 01/04/17 09:41 ; Admin Dose 500 MG; Start 12/31/16 at 09:00 Aspirin (Halfprin) 81 mg DAILY PO Last administered on 01/04/17 09:41; Admin Dose 81 MG; Start 12/31/16 at 09:00 Atorvastatin Calcium (Lipitor) 20 mg QHS PO Last administered on 01/03/17 20: 40; Admin Dose 20 MG; Start 12/30/16 at 21:00 Donepezil HCl (Aricept) 10 mg QHS PO Last administered on 01/03/17 20:40; Admin Dose 10 MG; Start 12/30/16 at 21:00 Acetaminophen/ Hydrocodone Bitart ([place] (10325)) 1 tab Q4H PRN PO pain; Start 12/30/16 at 20:00 Magnesium Hydroxide (Milk Of Mag) 30 ml Q24H PRN PO CONSTIPATION; Start at 20:00 Morphine Sulfate (Ms Contin (Er)) 60 mg BID PO Last administered on 01/04/17 09:42; Admin Dose 60 MG; Start 12/30/16 at 21:00 Sodium Chloride ([place]) 1 spray TID PRN NASAL 1SPRAY IN EACH NOSTRIL; Start 12/30/16 at 20:00 Zinc Sulfate (Zinc Sulfate) 220 mg DAILY PO Last administered on 01/04/17 09: 41; Admin Dose 220 MG; Start 12/31/16 at 09:00 Gabapentin (Neurontin) 600 mg Q8H PO Last administered on 01/04/17 04:23; Admin Dose 600 MG; Start 12/30/16 at 20:00 Senna/Docusate Sodium (Senokot-S) 2 tab BID PO Last administered on 01/04/17 09:41; Admin Dose 2 TAB; Start 12/30/16 at 21:00 Methylnaltrexone [place] (Relistor) 12 mg Q24H PRN SC no bm >24 hours; Start at 20:00 Famotidine (Pepcid) 20 mg DAILY PO Last administered on 01/04/17 09:41; Admin Dose 20 MG; Start 12/31/16 at 09:00 Diagnostic Test (Pha) (Accucheck) 1 ea 02 XX ; Start 12/31/16 at 02:00 Miscellaneous Information 1 ea NOTE XX ; Start 12/30/16 at 21:00 Glucose (Glutose) 15 gm Q15M PRN PO DECREASED GLUCOSE; Start 12/30/16 at 21:00 Glucose (Glutose) 22.5 gm Q15M PRN PO DECREASED GLUCOSE; Start 12/30/16 at 21:00 Dextrose (D50w Syringe) 25 ml Q15M PRN IV DECREASED GLUCOSE; Start 12/30/16 at 21:00 Dextrose (D50w Syringe) 50 ml Q15M PRN IV DECREASED GLUCOSE; Start 12/30/16 at 21:00 Glucagon (Glucagen) 1 mg Q15M PRN IM DECREASED GLUCOSE; Start 12/30/16 at 21:00 Glucose (Glutose) 15 gm Q15M PRN BUCCAL DECREASED GLUCOSE; Start 12/30/16 at 21: 00 Risperidone (Risperdal) 0.5 mg QPM PO Last administered on 01/03/17 20:41; Admin Dose 0.5 MG; Start 12/31/16 at 17:00 Sertraline HCl (Zoloft) 50 mg DAILY PO Last administered on 01/04/17 09:41; Admin Dose 50 MG; Start 01/01/17 at 09:00 Topiramate (Topamax) 150 mg BID PO Last administered on 01/04/17 09:41; Admin Dose 150 MG; Start 12/31/16 at 21:00 Collagenase (Santyl) 1 applic DAILY TOP Last administered on 01/04/17 09:42; Admin Dose 1 APPLIC; Start 01/01/17 at 15:00 Tamsulosin HCl (Flomax) 0.4 mg HS PO Last administered on 01/03/17 20:40; Admin Dose 0.4 MG; Start 01/01/17 at 21:00 Levetiracetam (Keppra) 250 mg BID PO Last administered on 01/04/17 09:41; Admin Dose 250 MG; Start 01/01/17 at 21:00 IV Flush 10 ml 10 ml PRN PRN IV IV PROTOCOL; Start 01/02/17 at 19:00 Cefepime HCl (Maxipime 2gm/50 ml (Pmx)) 50 ml @ 100 mls/hr Q12 IVPB Last administered on 01/04/17 09:41; Admin Dose 100 MLS/HR; Start 01/03/17 at 13:00 ; Stop 01/12/17 at 21:29 Polyethylene Glycol (Miralax) 17 gm BID PO Last administered on 01/04/17 09:41 ; Admin Dose 17 GM; Start 01/03/17 at 13:00 ELIEL OBRIEN MD Jan 04, 2017 09:54
--- NOTE | 2017-01-04 14:13 | PN ---
DATE: 01/04/2017 SUBJECTIVE: The patient complains of diarrhea and abdominal pain. She does have a distal left uret eral stone at the ureterovesical junction as seen on the CT scan. She has not passed it yet and she also has an ESBL UTI. GENERAL: The patient is basically complaining about her diarrhea today. OBJECTIVE: VITAL SIGNS: Temperature is 98.1, pulse is 45, respirations 16, blood pressure 145/64. ABDOMEN: Soft and there is no tenderness. The urine culture is ESBL E. coli. LABORATORY DATA: CBC shows a white count of 5.5, hemoglobin 10.2, hematocrit 33.0 and the BUN is 11 , creatinine 0.59. Urologically, she still has also mild left hydronephrosis, but she states that s he is comfortable. We will give her enough time to hopefully pass the stone. The KUB, however, jarvis s not show the stone because it is obscured by bowel content. We will repeat her ultrasound maybe i n about 10 days to 2 weeks and then if she still has the hydronephrosis, then one may have to bring her back and do ureteroscopy and remove the stone. Dictated By: CHANDAN DUNLAP/MADHURI Conf#: [id number] DID#: [id number]
[2017-01-04] MEDS: TAMSULOSIN (SR) 0.4 MG CAP PO SCH (21:00)
[2017-01-04] MEDS: RISPERIDONE 0.25 MG TAB PO SCH (21:00)
[2017-01-04] MEDS: DONEPEZIL 10 MG TAB PO SCH (21:00)
[2017-01-04] MEDS: ATORVASTATIN 20 MG TAB PO SCH (21:00)
[2017-01-04 21:52] VITALS: BP 142/65; RESP 20
--- NOTE | 2017-01-05 16:09 | RADRPT ---
Vent Rate: 48 bpm RR Interval: 0 msec ME Interval: 160 msec QRS Duration: 130 msec QT Interval: 462 msec QTC Interval: 412 msec P-R-T Bock: 21 - -55 - 14 degrees Marked sinus bradycardia Right bundle branch block Left anterior fascicular block Bifascicular block Abnormal ECG Electronically Signed By: Fortunato Alvarez [id number]
== END 2017-01-05 00:45 | DRG 100 ==
LOC: E/R 15:35 → PP2 21:23
PROVIDERS: ADMIT Legal Medicine; ATTEND Legal Medicine
PROC: 02HV33Z Insertion of Infusion Device into Superior Vena Cava, Percutaneous Approach (ICD-10-PCS; principal; 2017-01-02)
DX: G40.909 Epilepsy, unspecified, not intractable, without status epilepticus (principal); G93.49 Other encephalopathy; L89.152 Pressure ulcer of sacral region, stage 2; N39.0 Urinary tract infection, site not specified; E11.40 Type 2 diabetes mellitus with diabetic neuropathy, unspecified; N13.2 Hydronephrosis with renal and ureteral calculous obstruction; E13.621 Other specified diabetes mellitus with foot ulcer; R78.81 Bacteremia; L97.419 Non-pressure chronic ulcer of right heel and midfoot with unspecified severity; L89.153 Pressure ulcer of sacral region, stage 3; G30.9 Alzheimer's disease, unspecified; F03.90 Unspecified dementia, unspecified severity, without behavioral disturbance, psychotic disturbance, mood disturbance, and anxiety; B96.4 Proteus (mirabilis) (morganii) as the cause of diseases classified elsewhere; E86.0 Dehydration; Z66 Do not resuscitate; I10 Essential (primary) hypertension; E03.9 Hypothyroidism, unspecified; R10.31 Right lower quadrant pain; B96.20 Unspecified Escherichia coli [E. coli] as the cause of diseases classified elsewhere; M54.5 Low back pain; F02.80 Dementia in other diseases classified elsewhere, unspecified severity, without behavioral disturbance, psychotic disturbance, mood disturbance, and anxiety; F17.200 Nicotine dependence, unspecified, uncomplicated; F25.9 Schizoaffective disorder, unspecified; F17.210 Nicotine dependence, cigarettes, uncomplicated; Z16.12 Extended spectrum beta lactamase (ESBL) resistance; G89.29 Other chronic pain
CPT/HCPCS: 36415; 36569; 70450; 71010; 74000; 74176; 76775; 76937; 80048; 80053; 81001; 81003; 82962; 83036; 83690; 83735; 84100; 84439; 84443; 84484; 85025; 85610; 85730; 87040; 87081; 87086; 93005; 95819; 96374; 97110; 97163; 97530; A4310; C1769; J0692; J1335; J1650; J1815; J7030

== ENCOUNTER 2017-01-16 23:06 | Emergency (ER) | payer OTHER, MEDICAID ==
[~2017-01-16] VITALS: Ht 162.6 cm; Wt 65.9 kg
[~2017-01-16 23:06] MED LIST changes: +ACET325T33 PO; -ARIP2TAB8 PO; +ASC500 PO; -BISA5TAB6 PO; -CIPR500T4 PO; +CRAN450C PO; +DOCU-144 PO; -DOCU250C58 PO; +DULR PR; +FAMO20TA18 PO; +FLEETPED PR; -HYDR-3011 PO; -IBUP400T22 PO; -LEVO50TA74 PO; +MAGN400O4 PO; +METF500T4 PO; -MORP-58 PO; +MORP60TA37 PO; +MULT-105 PO; -RANI150T5 PO; -SENN-53 PO; +SODI30SP2 NS; -TEMA15CA PO; -TRAZ50TA18 PO; +TYL500 PO; +ZINC220T PO
[2017-01-16 23:12] VITALS: Ht 162.6 cm; Wt 65.9 kg
--- NOTE | 2017-01-17 01:03 | ERA ---
ER Documentation Chief Complaint Date/Time DATE: 01/16/17 Chief Complaint Right ankle pain [facility] The patient is a 86-year-old female, presenting to the ER because of right ankle pain after she fell 2 days ago. She had an x-ray of the right foot that show fracture of the right distal tibia and fibula and recommended to have x- ray of the right ankle. She was therefore sent to the ER for further evaluation. It was a mechanical fall, she denies any syncope, near syncope or weakness. She denies any other injury. She has a chronic nonhealing wound at the right heel for many months that is being treated at the [facility]. She denies headache, neck pain, chest pain, abdominal pain, dyspnea, diarrhea, dysuria. She does not smoke, drink Past medical history: Dementia, epilepsy, chronic pain syndrome, diabetes mellitus, dyslipidemia, hypertension ROS All systems reviewed and are negative except as per history of present illness. Medications Home Meds Active Scripts Ibuprofen* (Motrin*) 600 Mg Tab, 600 MG PO Q6H Y for PAIN AND OR ELEVATED TEMP, #20 TAB Prov:HAKEEM WU MD 01/17/17 Ondansetron (Ondansetron Odt) 4 Mg Tab.rapdis, 4 MG PO Q6H Y for NAUSEA AND/OR VOMITING, #10 TAB Prov:HAKEEM WU MD 10/08/16 Reported Medications Gabapentin* (Gabapentin*) 600 Mg Tablet, 660 MG PO Q8H, #60 TAB 12/30/16 Multivitamin with Minerals (Multivitamins with Minerals) 1 Each Tablet, 1 EACH PO DAILY, TAB 12/30/16 Morphine Sulfate* (Ms Contin*) 60 Mg Tablet.sa, 60 MG PO BID, TAB.SA 12/30/16 Magnesium Hydroxide* (Milk Of Magnesia*) 400 Mg/5 Ml Oral.susp, 30 ML PO Q24H Y for CONSTIPATION, ML 12/30/16 Metformin* (Glucophage*) 500 Mg Tab, 500 MG PO WITH BREAKFAST, #30 TAB 12/30/16 Sod Phosphate/Sod Biphosphate* (Fleet* Enema Pediatric) 66.6 Ml Soln, 66.6 ML MS Q2D Y for CONSTIPATION, ENEMA 12/30/16 Bisacodyl* (Bisacodyl*) 10 Mg Supp, 10 MG MS Q24H Y for PRN, SUPP 12/30/16 Cranberry Fruit Concentrate (CRANBERRY) 450 Mg Capsule, 450 MG PO DAILY, CAP 12/30/16 Docusate Sodium* (Colace*) 100 Mg Capsule, 200 MG PO QHS, #30 CAP 12/30/16 Zinc Sulfate* (Zinc Sulfate*) 220 Mg Tablet, 220 MG PO DAILY, TAB 12/30/16 Ascorbic Acid (Vitamin C) 500 Mg Tab, 500 MG PO DAILY, TAB 12/30/16 Acetaminophen* (Tylenol*) 500 Mg Tab, 1000 MG PO Q4H Y for MODERATE PAIN 4-04/05 , TAB 12/30/16 Acetaminophen* (Tylenol*) 325 Mg Tablet, 650 MG PO Q4H Y for MILD PAIN LEVEL 1-3 , TAB 12/30/16 Sodium Chloride (Saline Nasal [place]) 30 Ml [place], 30 ML NS TID Y for 1SPRAY IN EACH NOSTRIL, SPRAY 12/30/16 Famotidine* (Famotidine*) 20 Mg Tablet, 20 MG PO BID, #60 TAB 12/30/16 Hydrocodone/Acetaminophen ([place] 10-325 Tablet) 1 Each Tablet, 1 EACH PO Q4H for PAIN 7-07/06, TAB 10/08/16 Topiramate* (Topiramate*) 100 Mg Tablet, 100 MG PO BID, TAB 10/08/16 Sertraline Hcl* (Sertraline Hcl*) 50 Mg Tablet, 50 MG PO DAILY, #30 TAB 10/08/16 Risperidone* (Risperidone*) 0.5 Mg Tablet, 0.5 MG PO DAILY Q5PM, TAB 10/08/16 Lisinopril* (Lisinopril*) 5 Mg Tablet, 5 MG PO DAILY, #30 TAB 10/08/16 Donepezil* (Donepezil*) 10 Mg Tablet, 10 MG PO QHS, #30 TAB 10/08/16 Atorvastatin Calcium* (Atorvastatin Calcium*) 20 Mg Tablet, 20 MG PO QHS, #30 TAB 10/08/16 Aspirin* (Aspirin* EC) 81 Mg Tablet.dr, 81 MG PO DAILY, TAB 10/08/16 Allergies Allergies: Coded Allergies: No Known Allergy (Unverified , 12/30/16) PMhx/Soc History of Surgery: No Anesthesia Reaction: No Hx Neurological Disorder: Yes (seizures) Hx Respiratory Disorders: No Hx Cardiac Disorders: Yes (HTN;high cholesterol) Hx Psychiatric Problems: Yes (depression) Hx Miscellaneous Medical Probl: Yes (seizure,Alsheimer's, DM, htn, chronic pain ) Hx Alcohol Use: No Hx Substance Use: No Hx Tobacco Use: Yes Smoking Status: Former smoker Physical Exam Vitals Vital Signs Date Time Temp Pulse Resp B/P Pulse Ox O2 Delivery O2 Flow Rate FiO2 01/16/17 23:12 98.4 73 18 155/68 94 Physical Exam Const: No acute distress. Head: Atraumatic. Eyes: Normal Conjunctiva. ENT: Normal External Ears, Nose and Mouth. Neck: Full range of motion. No meningismus. Resp: Clear to auscultation bilaterally. Cardio: Regular rate and rhythm, no murmurs. Abd: Soft, non distended, normal bowel sounds, non tender. Skin: No petechiae or rashes. Back: No midline or flank tenderness. Ext: Right heel with a nonhealing decubitus ulcer. Right ankle and right foot edematous, ecchymotic, no laceration, no calf tenderness Neur: Awake and alert. No focal deficit Psych: Normal Mood and Affect. Results 24 hrs Current Medications Medications (Trade) Dose Ordered Sig/Jacquelyn Route PRN Reason Start Time Stop Time Status Last Admin Dose Admin Morphine Sulfate (morphine) 4 mg ONCE ONCE IV 01/17/17 01:12 01/17/17 01:13 DC 01/17/17 01:25 Ondansetron HCl (Zofran Inj) 4 mg ONCE ONCE IV 01/17/17 01:12 01/17/17 01:13 DC 01/17/17 01:15 Ondansetron HCl (Zofran Inj) 4 mg STK-MED ONCE .ROUTE 01/17/17 01:11 01/17/17 01:12 DC Morphine Sulfate (morphine) 4 mg STK-MED ONCE .ROUTE 01/17/17 01:12 01/17/17 01:13 DC Procedures/[place] [id number] Radiology Main Line: [phone] DIAGNOSTIC IMAGING REPORT Patient: ROMULO QUINTANILLA : 1930 Age: 86 Sex: F MR #: [id number] DOS: 01/17/17 0003 Ordering MD: HAKEEM WU MD Location: E/R Room/Bed: PROCEDURE: Right foot. CLINICAL INDICATION: Pain. TECHNIQUE: Three views including AP, lateral and oblique views of the right foot were obtained. The images were reviewed on a PACS workstation. COMPARISON: None. FINDINGS: There is an oblique fracture of the distal fibular. There are comminuted fractures of the medial malleolus. There is no dislocation. Bone mineralization is mildly decreased. There is no radiopaque foreign body or abnormal calcification. IMPRESSION: Bimalleolar fractures. .Melvin Brian MD, MD Date Time Electronically viewed and signed by .Melvin Brian MD, MD on 01/17/2017 01:10 .T/ CC: HAKEEM WU MD [place] [id number] Radiology Main Line: [phone] DIAGNOSTIC IMAGING REPORT Patient: ROMULO QUINTANILLA : 1930 Age: 86 Sex: F MR #: [id number] DOS: 01/17/17 0003 Ordering MD: HAKEEM WU MD Location: E/R Room/Bed: PROCEDURE: Right ankle. CLINICAL INDICATION: Pain. TECHNIQUE: Three views including AP, lateral and oblique views were performed. COMPARISON: None. FINDINGS: There is an oblique fracture of the distal fibular. There are comminuted fractures of the medial malleolus. There is no dislocation. Bone mineralization is within normal limits. There is no radiopaque foreign body or abnormal calcification. IMPRESSION: Bimalleolar fractures. .Melvin Brian MD, MD Date Time Electronically viewed and signed by .Melvin Brian MD, MD on 01/17/2017 01:09 .T/ CC: HAKEEM WU MD MEDICAL MAKING DECISION: The patient is a 86-year-old female, presenting with acute right bilateral malleolar fracture. She was treated with morphine 4 mg IV for pain, Zofran 4 IV for nausea with good response. She was treated with stirred up splint and crutches. Post-splint neurovascular is intact. The differential diagnoses considered include but are not limited to fracture, internal derangement Departure Diagnosis: Primary Impression: Bimalleolar fracture of right ankle Condition: Good Comments I discussed the findings with the patient. I advised the patient to follow-up with the on-call orthopedist Rickie in about 1-2 days, sooner if needed and return if any concern. HAKEEM WU MD Jan 17, 2017 01:03
--- NOTE | 2017-01-17 01:09 | RADRPT ---
PROCEDURE: Right ankle. CLINICAL INDICATION: Pain. TECHNIQUE: Three views including AP, lateral and oblique views were performed. COMPARISON: None. FINDINGS: There is an oblique fracture of the distal fibular. There are comminuted fractures of the medial ma lleolus. There is no dislocation. Bone mineralization is within normal limits. There is no radiop aque foreign body or abnormal calcification. IMPRESSION: Bimalleolar fractures. .Melvin Brian MD, MD Date Time Electronically viewed and signed by .Melvin Brian MD, MD on 01/17/2017 01:09 .T/
[2017-01-17] MEDS ORDERED: ONDANSETRON 4 MG INJ ONE (01:11)
--- NOTE | 2017-01-17 01:11 | RADRPT ---
PROCEDURE: Right foot. CLINICAL INDICATION: Pain. TECHNIQUE: Three views including AP, lateral and oblique views of the right foot were obtained. The images were reviewed on a PACS workstation. COMPARISON: None. FINDINGS: There is an oblique fracture of the distal fibular. There are comminuted fractures of the medial ma lleolus. There is no dislocation. Bone mineralization is mildly decreased. There is no radiopaque foreign body or abnormal calcification. IMPRESSION: Bimalleolar fractures. .Melvin Brian MD, Date Time Electronically viewed and signed by .Melvin Brian MD, MD on 01/17/2017 01:10 .T/
[2017-01-17] MEDS ORDERED: morphine 4 MG/ML VIAL ONE (01:12)
[2017-01-17] MEDS ORDERED: morphine 4 MG/ML VIAL IV ONE (01:12)
[2017-01-17] MEDS ORDERED: ONDANSETRON 4 MG INJ IV ONE (01:12)
[2017-01-17] MEDS ORDERED: IBUP-1542 PO (01:56)
[2017-01-17] MEDS ORDERED: HYDROCODONE/APAP (10/325) TAB PO ONE (04:00)
[2017-01-17 06:07] VITALS: BP 127/93; PULSE 92; RESP 20; TEMP 98.7
== END 2017-01-17 07:09 | disposition home or self-care (01) ==
LOC: E/R 23:06
DX: S82.841A Displaced bimalleolar fracture of right lower leg, initial encounter for closed fracture (principal); I10 Essential (primary) hypertension; E11.9 Type 2 diabetes mellitus without complications; G30.9 Alzheimer's disease, unspecified; W18.39XA Other fall on same level, initial encounter; Y92.9 Unspecified place or not applicable; Z87.891 Personal history of nicotine dependence; Z79.82 Long term (current) use of aspirin; Z79.84 Long term (current) use of oral hypoglycemic drugs
CPT/HCPCS: 29515; 73610; 73630; 96374; 96375; 99284; J2270; J2405

== ENCOUNTER 2017-05-18 12:39 | Emergency (ER) | payer OTHER, MEDICAID ==
[~2017-05-18] VITALS: Ht 165.1 cm; Wt 68.2 kg
[~2017-05-18 12:39] MED LIST changes: +BISA10SU75 PR; -DULR PR; +IBUP-1542 PO
[2017-05-18 12:48] VITALS: Ht 165.1 cm; Wt 68.2 kg
[2017-05-18] MEDS ORDERED: ONDANSETRON (ODT) 4 MG TAB ODT STA (12:51)
[2017-05-18] MEDS ORDERED: HYDROCODONE/APAP (10/325) TAB PO ONE (13:00)
[2017-05-18] MEDS ORDERED: HYDROCODONE/APAP (5/325) TAB PO ONE (13:00)
[2017-05-18] MEDS ORDERED: CEPH-443 PO (13:03)
[2017-05-18] MEDS ORDERED: HYDR-902 PO (13:03)
--- NOTE | 2017-05-18 13:07 | ERD ---
ER Documentation Chief Complaint Date/Time DATE: 05/18/17 TIME: 13:05 Chief Complaint generalized body pains; painful urination HPI This is an 87-year-old female who presents emergency room with multiple complaints. She describes a history of chronic pain. She is describing generalized body pain from her head to her toes that is consistent with her chronic pain. She states that she takes Vista for this pain. The patient was recently transferred to assisted living facility from a retirement facility. The patient also describes mild dysuria and urgency, no frequency. No flank pain, fevers or chills. ROS All systems reviewed and are negative except as per history of present illness. Medications Home Meds Active Scripts Cephalexin* (Keflex*) 500 Mg Capsule, 500 MG PO BID for 7 Days, CAP Prov:JAMI NARAYAN MD 05/18/17 Hydrocodone/Acetaminophen (Vista 10-325 Tablet) 1 Each Tablet, 1 TAB PO Q6H Y for PAIN, #7 TAB Prov:JAMI NARAYAN MD 05/18/17 Ibuprofen* (Motrin*) 600 Mg Tab, 600 MG PO Q6H Y for PAIN AND OR ELEVATED TEMP, #20 TAB Prov:HAKEEM WU MD 01/17/17 Ondansetron (Ondansetron Odt) 4 Mg Tab.rapdis, 4 MG PO Q6H Y for NAUSEA AND/OR VOMITING, #10 TAB Prov:HAKEEM WU MD 10/08/16 Reported Medications Gabapentin* (Gabapentin*) 600 Mg Tablet, 660 MG PO Q8H, #60 TAB 12/30/16 Multivitamin with Minerals (Multivitamins with Minerals) 1 Each Tablet, 1 EACH PO DAILY, TAB 12/30/16 Morphine Sulfate* (Ms Contin*) 60 Mg Tablet.sa, 60 MG PO BID, TAB.SA 12/30/16 Magnesium Hydroxide* (Milk Of Magnesia*) 400 Mg/5 Ml Oral.susp, 30 ML PO Q24H Y for CONSTIPATION, ML 12/30/16 Metformin* (Glucophage*) 500 Mg Tab, 500 MG PO WITH BREAKFAST, #30 TAB 12/30/16 Sod Phosphate/Sod Biphosphate* (Fleet* Enema Pediatric) 66.6 Ml Soln, 66.6 ML MA Q2D Y for CONSTIPATION, ENEMA 12/30/16 Bisacodyl* (Bisacodyl*) 10 Mg Supp, 10 MG MA Q24H Y for PRN, SUPP 12/30/16 Cranberry Fruit Concentrate (CRANBERRY) 450 Mg Capsule, 450 MG PO DAILY, CAP 12/30/16 Docusate Sodium* (Colace*) 100 Mg Capsule, 200 MG PO QHS, #30 CAP 12/30/16 Zinc Sulfate* (Zinc Sulfate*) 220 Mg Tablet, 220 MG PO DAILY, TAB 12/30/16 Ascorbic Acid (Vitamin C) 500 Mg Tab, 500 MG PO DAILY, TAB 12/30/16 Acetaminophen* (Tylenol*) 500 Mg Tab, 1000 MG PO Q4H Y for MODERATE PAIN 4-04/05 , TAB 12/30/16 Acetaminophen* (Tylenol*) 325 Mg Tablet, 650 MG PO Q4H Y for MILD PAIN LEVEL 1-3 , TAB 12/30/16 Sodium Chloride (Saline Nasal [place]) 30 Ml [place], 30 ML NS TID Y for 1SPRAY IN EACH NOSTRIL, SPRAY 12/30/16 Famotidine* (Famotidine*) 20 Mg Tablet, 20 MG PO BID, #60 TAB 12/30/16 Hydrocodone/Acetaminophen (Vista 10-325 Tablet) 1 Each Tablet, 1 EACH PO Q4H for PAIN 7-07/06, TAB 10/08/16 Topiramate* (Topiramate*) 100 Mg Tablet, 100 MG PO BID, TAB 10/08/16 Sertraline Hcl* (Sertraline Hcl*) 50 Mg Tablet, 50 MG PO DAILY, #30 TAB 10/08/16 Risperidone* (Risperidone*) 0.5 Mg Tablet, 0.5 MG PO DAILY Q5PM, TAB 10/08/16 Lisinopril* (Lisinopril*) 5 Mg Tablet, 5 MG PO DAILY, #30 TAB 10/08/16 Donepezil* (Donepezil*) 10 Mg Tablet, 10 MG PO QHS, #30 TAB 10/08/16 Atorvastatin Calcium* (Atorvastatin Calcium*) 20 Mg Tablet, 20 MG PO QHS, #30 TAB 10/08/16 Aspirin* (Aspirin* EC) 81 Mg Tablet.dr, 81 MG PO DAILY, TAB 10/08/16 Allergies Allergies: Coded Allergies: No Known Allergy (Unverified , 12/30/16) PMhx/Soc History of Surgery: No Anesthesia Reaction: No Hx Neurological Disorder: Yes (seizures) Hx Respiratory Disorders: No Hx Cardiac Disorders: Yes (HTN;high cholesterol) Hx Psychiatric Problems: Yes (depression) Hx Miscellaneous Medical Probl: Yes (seizure,Alsheimer's, DM, htn, chronic pain ) Hx Alcohol Use: No Hx Substance Use: No Hx Tobacco Use: Yes FmHx Family History: No diabetes Physical Exam Vitals Vital Signs Date Time Temp Pulse Resp B/P Pulse Ox O2 Delivery O2 Flow Rate FiO2 05/18/17 12:48 98.2 72 18 169/74 96 Physical Exam General: Well developed, well nourished, no acute distress Head: Normocephalic, atraumatic. Eyes: Pupils equally reactive, EOM intact ENT: Moist mucous membranes Neck: Supple, no lymphadenopathy Respiratory: Lungs clear bilaterally, no distress Cardiovascular: RRR, no murmurs, rubs, or gallops Abdominal: Soft, non-tender, non-distended, no peritoneal signs : Deferred MSK: No edema, no unilateral swelling, 5/5 strength Neurologic: Alert and oriented, moving all extremities, normal speech, no focal weakness, no cerebellar signs Skin: No rash Psych: Normal mood Results 24 hrs Current Medications Medications (Trade) Dose Ordered Sig/Jacquelyn Route PRN Reason Start Time Stop Time Status Last Admin Dose Admin Acetaminophen/ Hydrocodone Bitart (Vista (5/325)) 1 tab ONCE ONCE PO 05/18/17 13:00 05/18/17 13:00 DC Ondansetron HCl (Zofran Odt) 4 mg ONCE STAT ODT 05/18/17 12:51 05/18/17 12:52 DC Acetaminophen/ Hydrocodone Bitart (Vista (10/325)) 1 tab ONCE ONCE PO 05/18/17 13:00 05/18/17 13:01 DC Procedures/MDM The patient has a history of chronic pain. She is supposed to be taking Vista. I spoke to her primary care physician Dr. Braswell who confirms this. However, when reviewing the patient's medication list from her assisted living facility, this is not included on that list. This is likely why the patient is having exacerbation of her chronic pain. I do not believe the patient has an acute organic pathology other than potential of urinary tract infection. No evidence of pyelonephritis. The patient was given her Vista. A urine dip confirms urinary tract infection. Patient will be initiated on Keflex. I spoke to her primary care physician who confirms plan of care. The patient will be discharged back to her assisted living facility. We discussed follow up with the patient's primary care doctor within 24 to 48 hours as needed. We also discussed return to the emergency room for worsening symptoms or worsening condition. Outpatient referral: [None required] Discharge Medications: 7 tablets of Vista written until the patient's facility can arrange for prescription from primary care physician Departure Diagnosis: Primary Impression: Chronic pain Chronic pain type: chronic pain syndrome Qualified Code: G89.4 - Chronic pain syndrome Additional Impression: UTI (urinary tract infection) Urinary tract infection type: acute cystitis Hematuria presence: without hematuria Qualified Code: N30.00 - Acute cystitis without hematuria Condition: Stable Patient Instructions: Understanding Urinary Tract Infections (UTIs) Additional Instructions: Call your primary care doctor TOMORROW for an appointment during the next 1 WEEK.Tell the school attendance secretary that you were referred from this facility.See the doctor sooner or return here if your condition worsens before your appointment time. The patient needs to be on her regular norco 10mg. Please call primary care to add this to her med list. JAMI NARAYAN MD May 18, 2017 13:07
[2017-05-18 13:10] LABS: URINE BLOOD (Dip) POC Trace-intact (NEGATIVE)
[2017-05-18] MEDS ORDERED: LIDOCAINE/MYLANTA 40 ML BTL PO STA (13:57)
[2017-05-18] MEDS ORDERED: FAMOTIDINE 20 MG TAB PO STA (13:57)
[2017-05-18 14:11] VITALS: BP 149/56; PULSE 63; RESP 16
== END 2017-05-18 14:20 | disposition home or self-care (01) ==
LOC: E/R 12:39
DX: G89.4 Chronic pain syndrome (principal); N30.00 Acute cystitis without hematuria; I10 Essential (primary) hypertension; E11.9 Type 2 diabetes mellitus without complications; G30.9 Alzheimer's disease, unspecified; Z79.82 Long term (current) use of aspirin; Z79.84 Long term (current) use of oral hypoglycemic drugs; Z87.891 Personal history of nicotine dependence
CPT/HCPCS: 81003; 87086; 99284

== ENCOUNTER 2017-07-14 18:51 | Emergency (ER) | payer OTHER ==
[~2017-07-14] VITALS: Ht 152.4 cm; Wt 70.0 kg
[~2017-07-14 18:51] MED LIST changes: +CEPH-443 PO
[2017-07-14 18:57] VITALS: Ht 152.4 cm; Wt 70.0 kg
[2017-07-14] MEDS ORDERED: SOD CHLORIDE 0.9% 500 ML IV STA (20:17)
[2017-07-14] MEDS ORDERED: ONDANSETRON 4 MG INJ IV STA ×2 (20:17→23:37)
[2017-07-14] MEDS ORDERED: morphine 4 MG/ML VIAL IV STA (20:17)
[2017-07-14 20:47] LABS: ALBUMIN 4.2 g/dl (3.3-4.9); ALBUMIN/GLOBULIN RATIO 1.07; BILIRUBIN,INDIRECT 0.1 mg/dl (0-1.1); BILIRUBIN,TOTAL 0.1 mg/dl (0.2-1.3); CREATININE 0.71 mg/dl (0.44-1.00); POTASSIUM 4.1 mmol/L (3.5-5.1); TOTAL PROTEIN 8.1 g/dl (6.1-8.1)
[2017-07-14] MEDS ORDERED: TAMS0.4C2 PO (21:01)
[2017-07-14] MEDS ORDERED: TOPI50TA86 PO (21:02)
[2017-07-14] MEDS ORDERED: ONDA-43 PO (21:04)
[2017-07-14] MEDS ORDERED: ACET-2047 PO (21:04)
[2017-07-14] MEDS ORDERED: GUAI100L27 PO (21:05)
[2017-07-14] MEDS ORDERED: LIDO700A10 TP (21:07)
[2017-07-14] MEDS ORDERED: MULTI PO (21:08)
[2017-07-14] MEDS ORDERED: NALO25TA PO (21:08)
[2017-07-14] MEDS ORDERED: NOVO3I SC (21:09)
[2017-07-14] MEDS ORDERED: OMEG1CAP2 PO (21:09)
[2017-07-14] MEDS ORDERED: GABA-528 PO (21:12)
[2017-07-14] MEDS ORDERED: LACT1TAB11 PO (21:12)
[2017-07-14] MEDS ORDERED: LEVE250T5 PO (21:13)
--- NOTE | 2017-07-14 21:31 | RADRPT ---
PROCEDURE: CT ABDOMEN AND PELVIS WITHOUT CONTRAST: CLINICAL INDICATION: 87 years of age, female , abdominal pain and back pain. Difficulty urinating . COMPARISON: Report of renal ultrasound January 03, [address] abdomen pelvis December 30, 2016. Images are not available at this time TECHNIQUE: CT of the abdomen and pelvis was performed without intravenous contrast. Oral contrast wa s not administered prior to the examination. Coronal and sagittal reformatted images were obtained from the axial source images. Images were revi ewed on a high-resolution PACS workstation. Dose information: Based on a 32 cm phantom, the estimated radiation dose (CTDIvol mGy) for each seri es in this exam is 11.2. The estimated cumulative dose (DLP mGy-cm) is 578. One or more of the following dose reduction techniques were used: - Automated exposure control. - Adjustment of the mA and/or kV according to patient size. - Use of iterative reconstruction technique. FINDINGS: In the absence of intravenous contrast, the study constitutes a limited assessment of the solid orga ns, bowel and vessels. LUNG BASES: Aortic valve calcification. Mild dependent atelectasis. ABDOMEN/PELVIS: Liver: Normal noncontrast appearance. Gallbladder: Status post cholecystectomy. Bile ducts: Mild prominence of intrahepatic and extrahepatic bile ducts may be within normal limits post cholecystectomy. Common bile duct measures up to 1.1 cm in the intrapancreatic segment. Spleen: Normal noncontrast appearance. Pancreas: Normal noncontrast appearance. Adrenal glands: Normal noncontrast appearance. Kidneys and ureters: There are two punctate nonobstructing calculi in the lower pole of the left kid jorge individually measuring 0.2 cm. Negative for ureteral calculi or hydronephrosis. There is l obulation of the contour of the left kidney. There is nonspecific mild left perinephric fat strandin g. Aorta and IVC: Atherosclerotic calcification and tortuosity aorta and iliac vessels. Negative for ab dominal aortic aneurysm. Lymph nodes: Calcified mesenteric lymph node is likely from old healed granulomatous infection or co uld be dystrophic from prior surgery. Gastrointestinal tract: Air fluid levels in nondistended loops of distal ileum without a transition point is likely due to dysmotility. Bowel loops are otherwise decompressed. Appendix: Normal Bladder: Normal noncontrast appearance. Pelvic Organs: Uterine calcifications likely represent degenerated fibroids. Uterus and adnexa are o therwise unremarkable. Peritoneal cavity: No free fluid or free intraperitoneal air. Abdominal wall: Normal noncontrast appearance. BONES: Musculoskeletal: There is multilevel advanced degenerative disc disease and facet joint arthritis in the lumbar spine. There is multilevel advanced degenerative disc disease in the lower thoracic spin e. There are erosive changes at the T12-L1 disc level with endplate sclerosis and the vacuum phenome non. Negative for edema in the surrounding fat. Degenerative changes in the pelvis. IMPRESSION: Punctate nonobstructing calculi lower pole left kidney. Negative for ureteral calculi or hydronephro sis. Nonspecific left perinephric fat stranding. Recommend correlation with urinalysis to evaluate for po tential urinary tract infection. Multilevel advanced degenerative disc disease and facet joint arthritis in the thoraco-lumbar spine. There are erosive changes at the T12-L1 disk without edema in the surrounding fat. Although this ma y be degenerative, recommend correlation with labs (WBC and ESR) to rule out septic diskitis. Status post cholecystectomy. Mild prominence of intrahepatic and extrahepatic bile ducts may be with in normal limits post cholecystectomy. Recommend correlation with liver tests to rule out potential biliary stasis. RPTAT: HCTS Physician Olga Date Time Electronically viewed and signed by Physician Olga on 07/14/2017 21:31 /
[2017-07-14 21:37] LABS: BASOPHILS % 0.3 % (0.0-2.0); EOSINOPHILS # 0.1 10^3/ul (0.0-0.5); EOSINOPHILS % 0.8 % (0.0-7.0); HEMATOCRIT 38.5 % (37.0-47.0); HEMOGLOBIN 12.2 g/dl (12.0-16.0); LYMPHOCYTES # 1.6 10^3/ul (0.8-2.9); LYMPHOCYTES % 24.4 % (15.0-51.0); MEAN CORPUSCULAR HGB CONC 31.7 g/dl (32.0-37.0); MEAN CORPUSCULAR VOLUME 104.1 fl (82.0-101.0); MEAN PLATELET VOLUME 9.2 fl (7.4-10.4); MONOCYTE # 0.4 10^3/ul (0.3-0.9); MONOCYTES % 5.8 % (0.0-11.0); NEUTROPHIL # 4.5 10^3/ul (1.6-7.5); NEUTROPHILS % 68.2 % (39.0-77.0); PLATELET COUNT 240 10^3/UL (140-415); WHITE BLOOD COUNT 6.6 10^3/ul (4.8-10.8)
[2017-07-14 21:55] LABS: ADD UMIC YES; UR AMORPHOUS CRYSTAL FEW /HPF (NONE SEEN); UR ASCORBIC ACID 40 mg/dL (NEGATIVE); UR BACTERIA FEW /HPF (NONE SEEN); UR BILIRUBIN (Dip) NEGATIVE (NEGATIVE); UR BLOOD (Dip) NEGATIVE (NEGATIVE); UR CLARITY SLIGHTLY CLOUDY (CLEAR); UR COLOR YELLOW (YELLOW); UR GLUCOSE (Dip) NEGATIVE (NEGATIVE); UR KETONES (Dip) NEGATIVE (NEGATIVE); UR LEUKOCYTE ESTERASE (Dip) TRACE Leu/ul (NEGATIVE); UR NITRITE (Dip) POSITIVE (NEGATIVE); UR RBC 1 /HPF (0-5); UR SPECIFIC GRAVITY (Dip) 1.024 (1.003-1.030); UR TOTAL PROTEIN (Dip) 1+ mg/dl (NEGATIVE); UR UROBILINOGEN (Dip) NEGATIVE (NEGATIVE)
--- NOTE | 2017-07-14 22:17 | ERA ---
ER Documentation Chief Complaint Date/Time DATE: 07/14/17 TIME: 22:17 Chief Complaint back pain x 2 days, radiates to abdomen HPI 87-year-old female with a history of dementia, chronic back pain, and diabetes, sent from her nursing facility for acute on chronic low back pain radiating into her abdomen. Patient states the pain has been constant for 2 days, in the low back, right greater than left, radiating into her lower abdomen. She does endorse some dysuria but no hematuria. No fever, chills, nausea, vomiting, or constipation. She denies any lower extremity weakness or numbness. No urinary or bowel habit changes. ROS All systems reviewed and are negative except as per history of present illness. Medications Home Meds Reported Medications Levetiracetam* (Levetiracetam*) 250 Mg Tablet, 250 MG PO BID, TAB 07/14/17 Gabapentin* (Gabapentin*) 800 Mg Tablet, 800 MG PO Q8H, #90 TAB 07/14/17 Lactobacillus Acidophilus (ACIDOPHILUS) 1 Each Tablet, 1 EACH PO BID, TAB 07/14/17 Insulin Aspart* (Novolog Insulin Pen*) 100 Unit/Ml Soln, 0 SC .SLIDING SCALE AC , EA 07/14/17 [place]re[place]-3 Acid Ethyl Esters (Lovaza) 1 Gm Capsule, 1 GM PO BID, CAP 07/14/17 Multivitamins* (Theragran*) 1 Tab Tab, 1 TAB PO DAILY, TAB 07/14/17 Naloxegol Oxalate (Movantik) 25 Mg Tablet, 25 MG PO DAILY, TAB 07/14/17 Lidocaine (Lidoderm) 1 Each Adh..patch, 1 EACH TP Q12H 12H-ON/12H-OFF 07/14/17 Guaifenesin* (Robafen*) 100 Mg/5 Ml Syrup, 100 MG PO Q8H Y for COUGH, ML 07/14/17 Ondansetron Hcl* (Zofran*) 4 Mg Tab, 4 MG PO Q4H Y for NAUSEA AND OR VOMITING, TAB 07/14/17 Acetaminophen* (Acetaminophen*) 650 Mg Tablet, 650 MG PO Q6H Y for PAIN, #30 TAB AND FEVER 07/14/17 Topiramate* (Topiramate*) 50 Mg Tablet, 150 MG PO BID, TAB 9/18/17 Tamsulosin Hcl* (Tamsulosin Hcl*) 0.4 Mg Cap.er.24h, 0.4 MG PO HS, CAP 07/14/17 Metformin* (Glucophage*) 500 Mg Tab, 500 MG PO WITH BREAKFAST, #30 TAB 12/30/16 Ascorbic Acid (Vitamin C) 500 Mg Tab, 500 MG PO DAILY, TAB 12/30/16 Famotidine* (Famotidine*) 20 Mg Tablet, 20 MG PO DAILY, #60 TAB 12/30/16 Sertraline Hcl* (Sertraline Hcl*) 50 Mg Tablet, 50 MG PO DAILY, #30 TAB 10/08/16 Donepezil* (Donepezil*) 10 Mg Tablet, 10 MG PO QHS, #30 TAB 10/08/16 Discontinued Reported Medications Gabapentin* (Gabapentin*) 600 Mg Tablet, 660 MG PO Q8H, #60 TAB 12/30/16 Multivitamin with Minerals (Multivitamins with Minerals) 1 Each Tablet, 1 EACH PO DAILY, TAB 12/30/16 Morphine Sulfate* (Ms Contin*) 60 Mg Tablet.sa, 60 MG PO BID, TAB.SA 12/30/16 Magnesium Hydroxide* (Milk Of Magnesia*) 400 Mg/5 Ml Oral.susp, 30 ML PO Q24H Y for CONSTIPATION, ML 12/30/16 Sod Phosphate/Sod Biphosphate* (Fleet* Enema Pediatric) 66.6 Ml Soln, 66.6 ML ND Q2D Y for CONSTIPATION, ENEMA 12/30/16 Bisacodyl* (Bisacodyl*) 10 Mg Supp, 10 MG ND Q24H Y for PRN, SUPP 12/30/16 Cranberry Fruit Concentrate (CRANBERRY) 450 Mg Capsule, 450 MG PO DAILY, CAP 12/30/16 Docusate Sodium* (Colace*) 100 Mg Capsule, 200 MG PO QHS, #30 CAP 12/30/16 Zinc Sulfate* (Zinc Sulfate*) 220 Mg Tablet, 220 MG PO DAILY, TAB 12/30/16 Acetaminophen* (Tylenol*) 500 Mg Tab, 1000 MG PO Q4H Y for MODERATE PAIN 4-04/05 , TAB 12/30/16 Acetaminophen* (Tylenol*) 325 Mg Tablet, 650 MG PO Q4H Y for MILD PAIN LEVEL 1-3 , TAB 12/30/16 Sodium Chloride (Saline Nasal [place]) 30 Ml [place], 30 ML NS TID Y for 1SPRAY IN EACH NOSTRIL, SPRAY 12/30/16 Hydrocodone/Acetaminophen ([place] 10-325 Tablet) 1 Each Tablet, 1 EACH PO Q4H for PAIN 7-07/06, TAB 10/08/16 Topiramate* (Topiramate*) 100 Mg Tablet, 100 MG PO BID, TAB 10/08/16 Risperidone* (Risperidone*) 0.5 Mg Tablet, 0.5 MG PO DAILY Q5PM, TAB 10/08/16 Lisinopril* (Lisinopril*) 5 Mg Tablet, 5 MG PO DAILY, #30 TAB 10/08/16 Atorvastatin Calcium* (Atorvastatin Calcium*) 20 Mg Tablet, 20 MG PO QHS, #30 TAB 10/08/16 Aspirin* (Aspirin* EC) 81 Mg Tablet.dr, 81 MG PO DAILY, TAB 10/08/16 Discontinued Scripts Cephalexin* (Keflex*) 500 Mg Capsule, 500 MG PO BID for 7 Days, CAP Prov:JAMI NARAYAN MD 05/18/17 Hydrocodone/Acetaminophen ([place] 10-325 Tablet) 1 Each Tablet, 1 TAB PO Q6H Y for PAIN, #7 TAB Prov:JAMI NARAYAN MD 05/18/17 Ibuprofen* (Motrin*) 600 Mg Tab, 600 MG PO Q6H Y for PAIN AND OR ELEVATED TEMP, #20 TAB Prov:HAKEEM WU MD 01/17/17 Ondansetron (Ondansetron Odt) 4 Mg Tab.rapdis, 4 MG PO Q6H Y for NAUSEA AND/OR VOMITING, #10 TAB Prov:HAKEEM WU MD 10/08/16 Allergies Allergies: Coded Allergies: No Known Allergy (Unverified , 07/14/17) PMhx/Soc History of Surgery: No Anesthesia Reaction: No Hx Neurological Disorder: Yes (seizures) Hx Respiratory Disorders: No Hx Cardiac Disorders: Yes (HTN;high cholesterol) Hx Psychiatric Problems: Yes (depression) Hx Miscellaneous Medical Probl: Yes (seizure,Alsheimer's, DM, htn, chronic pain ) Hx Alcohol Use: No Hx Substance Use: No Hx Tobacco Use: Yes Smoking Status: Current every day smoker FmHx Family History: No diabetes Physical Exam Vitals Vital Signs Date Time Temp Pulse Resp B/P Pulse Ox O2 Delivery O2 Flow Rate FiO2 07/14/17 20:30 56 16 158/61 99 Room Air 07/14/17 19:30 57 24 167/66 99 Room Air 07/14/17 18:57 98.1 55 18 177/77 99 Physical Exam Const: Appears to be in some distress secondary to pain but is nontoxic Head: Atraumatic Eyes: Normal Conjunctiva ENT: Normal External Ears, Nose and Mouth. Neck: Full range of motion..~ No meningismus. Resp: Clear to auscultation bilaterally Cardio: Regular rate and rhythm, no murmurs Abd: Soft, suprapubic tenderness, no pulsatile mass , non distended. Normal bowel sounds Skin: No petechiae or rashes Back: Mild right CVA tenderness. There is midline mild tenderness over the entire lumbar spine without step-offs. Ext: No cyanosis, or edema Neur: Awake and alert, cranial nerves intact, strength and sensations intact in all 4 extremities Psych: Normal Mood and Affect Result Diagram: 07/14/17211707/14/172014 Results 24 hrs Laboratory Tests Test 07/14/17 20:15 07/14/17 21:18 07/14/17 21:27 07/14/17 23:00 Sodium Level 147mmol/L Potassium Level 4.1mmol/L Chloride Level 113mmol/L Carbon Dioxide Level 23mmol/L Anion Gap 15 Blood Urea Nitrogen 19mg/dl Creatinine 0.71mg/dl Glucose Level 146mg/dl Calcium Level 10.0mg/dl Total Bilirubin 0.1mg/dl Direct Bilirubin 0.00mg/dl Indirect Bilirubin 0.1mg/dl Aspartate Amino Transf (AST/SGOT) 15IU/L Alanine Aminotransferase (ALT/SGPT) 13IU/L Alkaline Phosphatase 98IU/L Total Protein 8.1g/dl Albumin 4.2g/dl Globulin 3.90g/dl Albumin/Globulin Ratio 1.07 White Blood Count 6.610^3/ul Red Blood Count 3.7010^6/ul Hemoglobin 12.2g/dl Hematocrit 38.5% Mean Corpuscular Volume 104.1fl Mean Corpuscular Hemoglobin 33.0pg Mean Corpuscular Hemoglobin Concent 31.7g/dl Red Cell Distribution Width 12.0% Platelet Count 42223^3/UL Mean Platelet Volume 9.2fl Neutrophils % 68.2% Lymphocytes % 24.4% Monocytes % 5.8% Eosinophils % 0.8% Basophils % 0.3% Nucleated Red Blood Cells % 0.0/100WBC Neutrophils # 4.510^3/ul Lymphocytes # 1.610^3/ul Monocytes # 0.410^3/ul Eosinophils # 0.110^3/ul Basophils # 0.010^3/ul Nucleated Red Blood Cells # 0.010^3/ul Urine Color YELLOW Urine Clarity SLIGHTLY CLOUDY Urine pH 5.0 Urine Specific [place] 1.024 Urine Ketones NEGATIVEmg/dL Urine Nitrite POSITIVEmg/dL Urine Bilirubin NEGATIVEmg/dL Urine Urobilinogen NEGATIVEmg/dL Urine Leukocyte Esterase TRACELeu/ul Urine Microscopic RBC 1/HPF Urine Microscopic WBC 7/HPF Urine Amorphous Crystals FEW/HPF Urine Bacteria FEW/HPF Urine Hemoglobin NEGATIVEmg/dL Urine Glucose NEGATIVEmg/dL Urine Total Protein 1+mg/dl Erythrocyte Sedimentation Rate 37mm/Hr Current Medications Medications (Trade) Dose Ordered Sig/Jacquelyn Route PRN Reason Start Time Stop Time Status Last Admin Dose Admin Sodium Chloride (NS) 500 ml @ 500 mls/hr Q1H STAT IV 07/14/17 20:17 07/14/17 21:16 DC 07/14/17 20:24 Morphine Sulfate (morphine) 6 mg ONCE STAT IV 07/14/17 20:17 07/14/17 20:19 DC 07/14/17 20:22 Ondansetron HCl 4 mg 4 mg ONCE STAT IV 07/14/17 20:17 07/14/17 20:19 DC 07/14/17 20:23 Cefepime HCl 50 ml @ 100 mls/hr ONCE STAT IVPB 07/14/17 22:19 07/14/17 22:48 DC 07/14/17 23:30 Vancomycin HCl (Vancocin) 250 ml @ 125 mls/hr ONCE ONCE IVPB 07/14/17 22:30 07/15/17 00:29 DC 07/14/17 23:38 Ondansetron HCl (Zofran Inj) 4 mg ONCE STAT IV 07/14/17 23:37 07/14/17 23:38 DC 07/14/17 23:38 Ibuprofen (Motrin) 800 mg ONCE ONCE PO 07/15/17 00:30 07/15/17 00:31 UNV Oxycodone/ Acetaminophen (Endocet (65/ )) 1 tab ONCE ONCE PO 07/15/17 00:30 07/15/17 00:31 UNV Procedures/MDM Labs CBC: no anemia or evidence of infection BMP: mild hypernatremia and hyperchloremia UA: There is evidence of infection ESR: pending Imaging CT abdomen and pelvis: MPRESSION: Punctate nonobstructing calculi lower pole left kidney. Negative for ureteral calculi or hydronephrosis. Nonspecific left perinephric fat stranding. Recommend correlation with urinalysis to evaluate for potential urinary tract infection. Multilevel advanced degenerative disc disease and facet joint arthritis in the thoraco-lumbar spine. There are erosive changes at the T12-L1 disk without edema in the surrounding fat. Although this may be degenerative, recommend correlation with labs (WBC and ESR) to rule out septic diskitis. Status post cholecystectomy. Mild prominence of intrahepatic and extrahepatic bile ducts may be within normal limits post cholecystectomy. Recommend correlation with liver tests to rule out potential biliary stasis. Physician Olga Date Time Electronically viewed and signed by Jennifer Cisneros Physician on 07/14/2017 21: 31 [facility] Patient is presenting with acute on chronic low back pain and new abdominal pain. Vitals are unremarkable. She is afebrile and well-appearing. Her CT showed evidence of possible pyelonephritis. This in combination with her urinalysis results make me suspicious for urinary tract infection. However there is no evidence of sepsis. Broad-spectrum antibiotics were given. Urine was sent for culture. Her CT showed evidence of possible vertebral erosion concerning for discitis. However I have a low suspicion for this given the patient's exam and overall well appearance. I spoke with the admitting doctor, Dr. Yousif, who stated he would evaluate the patient. He does not feel she needs admission. We are waiting on the ESR to result. After his evaluation, he will determine whether he wants to admit the patient or if he wants to work this up as an outpatient in her nursing facility. He states in the meantime he can have her on IV antibiotics during that outpatient workup. Patient will be signed out to the [facility] ED physician, who will follow up with Dr. Yousif regarding admission versus discharge. Departure Diagnosis: Primary Impression: Acute exacerbation of chronic low back pain Additional Impression: UTI (urinary tract infection) Qualified Code: N30.00 - Acute cystitis without hematuria Condition: CHICA Leigh MD Jul 14, 2017 22:17
[2017-07-14] MEDS ORDERED: CEFEPIME 2GM/50 ML (PMX) 50 ML IVPB STA (22:19)
[2017-07-14] MEDS ORDERED: VANCOMYCIN 1 GM (PMX) 250 ML IVPB ONE (22:30)
--- NOTE | 2017-07-15 00:25 | QN ---
Documentation Comment consult obie a/p 1. back pain, likely bland musculoskeletal. treat with ibuprofen and percocet (b) ct results suggestive of disciitis, however, no other signs of this illness , will plan outpatient MRI 2. will treat uri with levoflox, small chance back pain related to pyelo 3. dementia 4. dm 5. d/c home ISAC VELEZ MD Jul 15, 2017 00:25
[2017-07-15] MEDS ORDERED: OXYCODONE/ACETAMINOPHEN (10/325) TAB PO ONE ×2 (00:30→04:00)
[2017-07-15] MEDS ORDERED: IBUPROFEN 800 MG TAB PO ONE (00:30)
[2017-07-15] MEDS ORDERED: PANT40TA3 PO (00:35)
[2017-07-15] MEDS ORDERED: IBUP800T25 PO (00:35)
[2017-07-15] MEDS ORDERED: CEPH-443 PO (00:38)
[2017-07-15 02:52] VITALS: BP 165/57; PULSE 50; RESP 14
[2017-07-15] MEDS ORDERED: ONDANSETRON (ODT) 4 MG TAB ODT ONE (03:16)
[2017-07-15] MEDS ORDERED: ONDANSETRON (ODT) 4 MG TAB ODT STA (03:17)
--- NOTE | 2017-07-15 09:08 | CONS ---
DATE OF ADMISSION: 07/14/2017 DATE OF CONSULTATION: 07/15/2017 TYPE OF CONSULTATION: Internal Medicine REFERRING PHYSICIAN: Diane Harrington MD, [facility] Emergency Room. REASON FOR CONSULTATION: Back pain. HISTORY OF PRESENT ILLNESS: Ms. Tam presents the Emergency Room at [facility] with a 3-day history of low back pain which has been poorly controlled with [place]. She states that she has been taking 1 tablet 3 times a day, but this has not been controlling her pain and that this is somewhat worse today causing her to come here to the Emergency Room. She denies any recent illness, denies any fevers or chills, denies nausea or vomiting, but does state there is some pain with urination that she has noted over the last day or two. PAST MEDICAL HISTORY: Significant for hypertension, diabetes, dementia, major depression, and seizure disorder. MEDICATIONS: As an outpatient include: 1. Lidoderm patch. 2. Metformin 500 mg daily. 3. Movantik 25 mg daily. 4. Multivitamin. 5. Insulin sliding scale. 6. Fish oil. 7. Zoloft 50 mg daily. 8. Flomax 0.4 mg daily. 9. Topamax 150 mg b.i.d. 10. Vitamin C 500 mg daily. 11. Probiotic. 12. Aricept 10 mg daily. 13. Pepcid 20 mg daily. 14. Neurontin 800 mg 3 times a day. 15. Keppra 250 mg b.i.d. 16. Tylenol. 17. Zofran. 18. Robitussin DM. ALLERGIES: NO KNOWN DRUG ALLERGIES. SOCIAL HISTORY: The patient is a resident [facility]. She is wheelchair bound, but is able to transfer in and out of the wheelchair on her own. She denies tobacco, alcohol or illicit drug use. FAMILY HISTORY: Noncontributory. REVIEW OF SYSTEMS: Five systems reviewed and found not to be revealing. PHYSICAL EXAMINATION: VITAL SIGNS: On examination, blood pressure is 158/61, pulse rate 56, respirations 16, temperature is 98.1. GENERAL: A pleasant, elderly woman in moderate distress from pain. HEENT: Normocephalic, atraumatic, without any scleral icterus or perioral cyanosis. Mucous membranes are moist. NECK: Soft and supple, without masses. No bruits, jugular venous distention or carotid bruits. CHEST: Clear to auscultation and percussion bilaterally. HEART: Regular rate and rhythm. S1,S2 and no added sounds. ABDOMEN: Soft, nontender, and nondistended, without palpable hepatosplenomegaly. BACK: On examination, the patient localizes her pain to a broad area of the lumbar spine in the paraspinal musculature. She has no bony tenderness and minimal tenderness to palpation and percussion of the left costovertebral angle. EXTREMITIES: Without clubbing, cyanosis or edema. SKIN: Without rashes. NEUROLOGIC: Cranial nerves III-XII are intact. Tone, power, cand oordination intact x4 limbs. DATA: Laboratory Studies: Reveal a hemoglobin of 12.2 g/dL, white count of 6600, platelets of 240,000. Sodium 147, potassium 4.1, chloride 113, bicarbonate 23, BUN 19, creatinine 0.71, glucose 146. Liver function tests are unremarkable. UA: Shows positive nitrites, trace leukocyte esterase, 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 IMPRESSION AND PLAN: 1. Exacerbation of back pain. This is almost certainly bland and nonspecific back pain. There are no warning features at this time other than age and no lytic or blastic lesions noted on CT scan. Suspicion of diskitis is low, especially in light of no fevers and no white count, and ESR of only 37; however, we will plan to obtain outpatient MRI to further rule this out. At this time, I do not feel the patient warrants antibiotics. We will plan to treat for back pain with [id number] ibuprofen and as needed Percocet, and give Protonix and laxatives as needed. 2. Urinary tract infection. We will plan to treat with Levaquin orally for this. It is a small possibility that pyelonephritis may be the cause of the patient's back pain. 3. Diabetes. Continue same. 4. Mild dementia. DISPOSITION: The patient is stable for discharge to home with outpatient followup. Dictated By: Monty Menard MD /marietta/sophie /Document#: [id number]
== END 2017-07-15 02:52 | disposition home or self-care (01) ==
LOC: E/R 18:51
DX: M54.5 Low back pain (principal); N30.00 Acute cystitis without hematuria; E11.9 Type 2 diabetes mellitus without complications; I10 Essential (primary) hypertension; F17.210 Nicotine dependence, cigarettes, uncomplicated; Z79.4 Long term (current) use of insulin; Z79.82 Long term (current) use of aspirin; Z79.84 Long term (current) use of oral hypoglycemic drugs
CPT/HCPCS: 36415; 74176; 80053; 81001; 85025; 85651; 87040; 87086; 96374; 96375; 96376; 99285; J2270; J2405; J7040

== ENCOUNTER 2017-08-18 14:10 | Emergency (ER) | payer OTHER ==
[~2017-08-18] VITALS: Ht 157.5 cm; Wt 57.0 kg
[~2017-08-18 14:10] MED LIST changes: +ACET-2047 PO; -ACET325T33 PO; -ASPI-664 PO; -ATOR20TA38 PO; -BISA10SU75 PR; -CRAN450C PO; -DOCU-144 PO; -FLEETPED PR; -GABA-526 PO; +GABA-528 PO; +GUAI100L27 PO; -HYDR-902 PO; -IBUP-1542 PO; +IBUP800T25 PO; +LACT1TAB11 PO; +LEVE250T5 PO; +LIDO700A10 TP; -LISI-313 PO; -MAGN400O4 PO; -MORP60TA37 PO; -MULT-105 PO; +MULTI PO; +NALO25TA PO; +NOVO3I SC; +OMEG1CAP2 PO; +ONDA-43 PO; -ONDA4TAB14 PO; +PANT40TA3 PO; -RISP0.5T3 PO; -SODI30SP2 NS; +TAMS0.4C2 PO; -TOPI-25 PO; +TOPI50TA86 PO; -TYL500 PO; -ZINC220T PO
[2017-08-18 14:26] VITALS: Ht 157.5 cm; Wt 57.0 kg
--- NOTE | 2017-08-18 14:32 | ERD ---
ER Documentation Chief Complaint Chief Complaint AP N/D X 3 DAYS COMING FROM [facility] The patient is a 87-year-old male, presenting to the ER because of nausea, no vomiting, diarrhea for the last 3 days after she ran out of her Percocet. She claims that she lost her Percocet prescription. She denies fever, chills, neck pain, chest pain, abdominal pain, dysuria. She denies hematemesis, hematochezia. She smokes half a pack a day, denies drinking Past medical history: Seizure disorder, dementia, chronic pain syndrome, diabetes mellitus, hypertension, schizoaffective disorder, chronic low back pain Past surgical history: None ROS All systems reviewed and are negative except as per history of present illness. Medications Home Meds Active Scripts Oxycodone HCl/Acetaminophen (Percocet 5-325 mg Tablet) 1 Each Tablet, 1 EACH PO Q6, #10 TAB Prov:HAKEEM WU MD 08/18/17 Cephalexin* (Keflex*) 500 Mg Capsule, 500 MG PO TID for 10 Days, CAP Prov:CHICA DUBOIS MD 07/15/17 Pantoprazole* (Protonix*) 40 Mg Tablet.dr, 40 MG PO DAILY for 14 Days, #14 TAB Prov:ISAC VELEZ MD 07/15/17 Ibuprofen* (Ibuprofen*) 800 Mg Tablet, 800 MG PO Q8 for 14 Days, #42 TAB Prov:ISAC VELEZ MD 07/15/17 Reported Medications Levetiracetam* (Levetiracetam*) 250 Mg Tablet, 250 MG PO BID, TAB 07/14/17 Gabapentin* (Gabapentin*) 800 Mg Tablet, 800 MG PO Q8H, #90 TAB 07/14/17 Lactobacillus Acidophilus (ACIDOPHILUS) 1 Each Tablet, 1 EACH PO BID, TAB 07/14/17 Insulin Aspart* (Novolog Insulin Pen*) 100 Unit/Ml Soln, 0 SC .SLIDING SCALE AC , EA 07/14/17 [place]-3 Acid Ethyl Esters (Lovaza) 1 Gm Capsule, 1 GM PO BID, CAP 07/14/17 Multivitamins* (Theragran*) 1 Tab Tab, 1 TAB PO DAILY, TAB 07/14/17 Naloxegol Oxalate (Movantik) 25 Mg Tablet, 25 MG PO DAILY, TAB 07/14/17 Lidocaine (Lidoderm) 1 Each Adh..patch, 1 EACH TP Q12H 12H-ON/12H-OFF 07/14/17 Guaifenesin* (Robafen*) 100 Mg/5 Ml Syrup, 100 MG PO Q8H Y for COUGH, ML 07/14/17 Ondansetron Hcl* (Zofran*) 4 Mg Tab, 4 MG PO Q4H Y for NAUSEA AND OR VOMITING, TAB 07/14/17 Acetaminophen* (Acetaminophen*) 650 Mg Tablet, 650 MG PO Q6H Y for PAIN, #30 TAB AND FEVER 07/14/17 Topiramate* (Topiramate*) 50 Mg Tablet, 150 MG PO BID, TAB 07/14/17 Tamsulosin Hcl* (Tamsulosin Hcl*) 0.4 Mg Cap.er.24h, 0.4 MG PO HS, CAP 07/14/17 Metformin* (Glucophage*) 500 Mg Tab, 500 MG PO WITH BREAKFAST, #30 TAB 12/30/16 Ascorbic Acid (Vitamin C) 500 Mg Tab, 500 MG PO DAILY, TAB 12/30/16 Famotidine* (Famotidine*) 20 Mg Tablet, 20 MG PO DAILY, #60 TAB 12/30/16 Sertraline Hcl* (Sertraline Hcl*) 50 Mg Tablet, 50 MG PO DAILY, #30 TAB 10/08/16 Donepezil* (Donepezil*) 10 Mg Tablet, 10 MG PO QHS, #30 TAB 10/08/16 Allergies Allergies: Coded Allergies: No Known Allergy (Unverified , 07/14/17) PMhx/Soc History of Surgery: No Anesthesia Reaction: No Hx Neurological Disorder: Yes (seizures) Hx Respiratory Disorders: No (copd) Hx Cardiac Disorders: Yes (HTN;high cholesterol) Hx Psychiatric Problems: Yes (depression) Hx Miscellaneous Medical Probl: Yes (seizure,Alsheimer's, DM, htn, chronic pain ) Hx Alcohol Use: No Hx Substance Use: No Hx Tobacco Use: Yes Smoking Status: Current every day smoker Physical Exam Vitals Vital Signs Date Time Temp Pulse Resp B/P Pulse Ox O2 Delivery O2 Flow Rate FiO2 08/18/17 17:54 98.0 79 18 148/70 98 Room Air 08/18/17 14:26 98.3 78 18 159/72 98 Physical Exam Const: No acute distress. Head: Atraumatic. Eyes: Normal Conjunctiva. ENT: Normal External Ears, Nose and Mouth. Neck: Full range of motion. No meningismus. Resp: Clear to auscultation bilaterally. Cardio: Regular rate and rhythm. Abd: Soft, non distended, normal bowel sounds, non tender. Skin: No petechiae or rashes. Back: No midline or flank tenderness. Ext: No cyanosis, or edema. Neur: Awake and alert. No focal deficit Psych: Normal Mood and Affect. Result Diagram: 08/18/17 1508 08/18/17 1508 Results 24 hrs Laboratory Tests Test 08/18/17 15:08 08/18/17 15:35 White Blood Count 7.110^3/ul Red Blood Count 4.0210^6/ul Hemoglobin 13.6g/dl Hematocrit 42.1% Mean Corpuscular Volume 104.7fl Mean Corpuscular Hemoglobin 33.8pg Mean Corpuscular Hemoglobin Concent 32.3g/dl Red Cell Distribution Width 12.4% Platelet Count 86414^3/UL Mean Platelet Volume 9.5fl Neutrophils % 67.9% Lymphocytes % 22.1% Monocytes % 7.4% Eosinophils % 1.7% Basophils % 0.6% Nucleated Red Blood Cells % 0.0/100WBC Neutrophils # 4.810^3/ul Lymphocytes # 1.610^3/ul Monocytes # 0.510^3/ul Eosinophils # 0.110^3/ul Basophils # 0.010^3/ul Nucleated Red Blood Cells # 0.010^3/ul Sodium Level 143mmol/L Potassium Level 5.0mmol/L Chloride Level 108mmol/L Carbon Dioxide Level 24mmol/L Anion Gap 16 Blood Urea Nitrogen 23mg/dl Creatinine 1.03mg/dl Glucose Level 102mg/dl Calcium Level 10.4mg/dl Total Bilirubin 0.1mg/dl Direct Bilirubin 0.00mg/dl Indirect Bilirubin 0.1mg/dl Aspartate Amino Transf (AST/SGOT) 20IU/L Alanine Aminotransferase (ALT/SGPT) 33IU/L Alkaline Phosphatase 120IU/L Total Protein 9.0g/dl Albumin 5.0g/dl Globulin 4.00g/dl Albumin/Globulin Ratio 1.25 Lipase 176U/L Bedside Urine pH (LAB) 5.5 Bedside Urine Protein (LAB) Negative Bedside Urine Glucose (UA) Negative Bedside Urine Ketones (LAB) Negative Bedside Urine Blood Negative Bedside Urine Nitrite (LAB) Negative Bedside Urine Leukocyte Esterase (L Negative Current Medications Medications (Trade) Dose Ordered Sig/Jacquelyn Route PRN Reason Start Time Stop Time Status Last Admin Dose Admin Oxycodone/ Acetaminophen (Percocet (5/ 325)) 1 tab ONCE ONCE PO 08/18/17 15:00 08/18/17 15:01 DC 08/18/17 15:24 Ondansetron HCl (Zofran Odt) 4 mg ONCE STAT ODT 08/18/17 14:52 08/18/17 14:54 DC 08/18/17 15:24 Loperamide HCl (Imodium Cap) 4 mg ONCE ONCE PO 08/18/17 18:00 08/18/17 18:01 DC 08/18/17 17:48 Procedures/MDM MEDICAL MAKING DECISION: The patient is a 87-year-old female, presenting with an acute opioid withdrawal. She was treated with Percocet for her chronic pain and Zofran ODT for nausea and Imodium for her diarrhea with good response The differential diagnoses considered include but are not limited to cholelithiasis, cholecystitis, cystitis, pancreatitis, hepatitis, gastritis, peptic ulcer disease, gastric ulcer, appendicitis, diverticulitis, cholangitis, choledocholithiasis, partial small bowel obstruction. Departure Diagnosis: Primary Impression: Opioid withdrawal Condition: Good Comments She was discharged with 10 tablets of Percocet 5 mg until she is able to see her doctor to refill her medication HAKEEM WU MD Aug 18, 2017 14:32
[2017-08-18] MEDS ORDERED: ONDANSETRON (ODT) 4 MG TAB ODT STA (14:52)
[2017-08-18] MEDS ORDERED: OXYCODONE/ACETAMINOPHEN (5/325) TAB PO ONE (15:00)
[2017-08-18 15:19] LABS: BASOPHILS % 0.6 % (0.0-2.0); EOSINOPHILS # 0.1 10^3/ul (0.0-0.5); EOSINOPHILS % 1.7 % (0.0-7.0); HEMATOCRIT 42.1 % (37.0-47.0); HEMOGLOBIN 13.6 g/dl (12.0-16.0); LYMPHOCYTES # 1.6 10^3/ul (0.8-2.9); LYMPHOCYTES % 22.1 % (15.0-51.0); MEAN CORPUSCULAR HEMOGLOBIN 33.8 pg (29.0-33.0); MEAN CORPUSCULAR HGB CONC 32.3 g/dl (32.0-37.0); MEAN CORPUSCULAR VOLUME 104.7 fl (82.0-101.0); MEAN PLATELET VOLUME 9.5 fl (7.4-10.4); MONOCYTE # 0.5 10^3/ul (0.3-0.9); MONOCYTES % 7.4 % (0.0-11.0); NEUTROPHIL # 4.8 10^3/ul (1.6-7.5); NEUTROPHILS % 67.9 % (39.0-77.0); PLATELET COUNT 232 10^3/UL (140-415); RED BLOOD COUNT 4.02 10^6/ul (4.20-5.40); RED CELL DISTRIBUTION WIDTH 12.4 % (11.5-14.5); WHITE BLOOD COUNT 7.1 10^3/ul (4.8-10.8)
[2017-08-18 15:35] LABS: URINE BLOOD (Dip) POC Negative (NEGATIVE)
[2017-08-18 15:40] LABS: ALBUMIN/GLOBULIN RATIO 1.25; BILIRUBIN,INDIRECT 0.1 mg/dl (0-1.1); BILIRUBIN,TOTAL 0.1 mg/dl (0.2-1.3); CALCIUM 10.4 mg/dl (8.4-10.2); CREATININE 1.03 mg/dl (0.44-1.00)
[2017-08-18] MEDS ORDERED: OXYC-279 PO (16:29)
[2017-08-18 17:54] VITALS: BP 148/70; PULSE 79; RESP 18; TEMP 98
[2017-08-18] MEDS ORDERED: LOPERAMIDE 2 MG CAP PO ONE (18:00)
== END 2017-08-18 17:54 | disposition home or self-care (01) ==
LOC: E/R 14:10
DX: F11.93 Opioid use, unspecified with withdrawal (principal); I10 Essential (primary) hypertension; E11.9 Type 2 diabetes mellitus without complications; J44.9 Chronic obstructive pulmonary disease, unspecified; F17.210 Nicotine dependence, cigarettes, uncomplicated; Z79.4 Long term (current) use of insulin; Z79.84 Long term (current) use of oral hypoglycemic drugs
CPT/HCPCS: 80053; 81003; 83690; 85025; 99283

== ENCOUNTER 2017-08-29 16:17 | Emergency (ER) | payer OTHER ==
[~2017-08-29] VITALS: Ht 162.6 cm; Wt 74.0 kg
[~2017-08-29 16:17] MED LIST changes: +OXYC-279 PO
[2017-08-29] MEDS ORDERED: ONDANSETRON 4 MG INJ IV STA (17:27)
[2017-08-29] MEDS ORDERED: SOD CHLORIDE 0.9% 500 ML IV STA (17:27)
[2017-08-29] MEDS ORDERED: OXYCODONE/ACETAMINOPHEN (5/325) TAB PO ONE (17:30)
[2017-08-29] MEDS ORDERED: KETOROLAC 15 MG INJ IV STA (17:42)
[2017-08-29 18:11] VITALS: Ht 162.6 cm; Wt 74.0 kg
[2017-08-29 20:16] VITALS: TEMP 98
--- NOTE | 2017-08-29 20:24 | ERD ---
ER Documentation Chief Complaint Chief Complaint ABD PAIN WITH LOW BACK PAIN AND NAUSEA WITH NO VOMITING FOR 3 DAYS. HPI 87-year-old woman here requesting IV Dilaudid specifically. She states she has been using p.o. [place] at home without relief for complaints of chronic recurrent daily body aches including pain in the lower extremities and abdominal cramping. Her abdominal cramping similar to daily episodes is nonexertional nonradiating and has not changed compared to the other episodes. She states she "cannot see her doctor" for another week and is also requesting opioid prescriptions. She denies fevers or chills, no weight loss, no blood per rectum, no chest pain or shortness of breath, no suicidal homicidal ideation. ROS All systems reviewed and are negative except as per history of present illness. Medications Home Meds Active Scripts Oxycodone HCl/Acetaminophen (Percocet 5-325 mg Tablet) 1 Each Tablet, 1 EACH PO Q6, #10 TAB Prov:HAKEEM WU MD 08/18/17 Cephalexin* (Keflex*) 500 Mg Capsule, 500 MG PO TID for 10 Days, CAP Prov:CHICA DUBOIS MD 07/15/17 Pantoprazole* (Protonix*) 40 Mg Tablet.dr, 40 MG PO DAILY for 14 Days, #14 TAB Prov:ISAC VELEZ MD 07/15/17 Ibuprofen* (Ibuprofen*) 800 Mg Tablet, 800 MG PO Q8 for 14 Days, #42 TAB Prov:ISAC VELEZ MD 07/15/17 Reported Medications Levetiracetam* (Levetiracetam*) 250 Mg Tablet, 250 MG PO BID, TAB 07/14/17 Gabapentin* (Gabapentin*) 800 Mg Tablet, 800 MG PO Q8H, #90 TAB 07/14/17 Lactobacillus Acidophilus (ACIDOPHILUS) 1 Each Tablet, 1 EACH PO BID, TAB 07/14/17 Insulin Aspart* (Novolog Insulin Pen*) 100 Unit/Ml Soln, 0 SC .SLIDING SCALE AC , EA 07/14/17 [place]-3 Acid Ethyl Esters (Lovaza) 1 Gm Capsule, 1 GM PO BID, CAP 07/14/17 Multivitamins* (Theragran*) 1 Tab Tab, 1 TAB PO DAILY, TAB 07/14/17 Naloxegol Oxalate (Movantik) 25 Mg Tablet, 25 MG PO DAILY, TAB 07/14/17 Lidocaine (Lidoderm) 1 Each Adh..patch, 1 EACH TP Q12H 12H-ON/12H-OFF 07/14/17 Guaifenesin* (Robafen*) 100 Mg/5 Ml Syrup, 100 MG PO Q8H Y for COUGH, ML 07/14/17 Ondansetron Hcl* (Zofran*) 4 Mg Tab, 4 MG PO Q4H Y for NAUSEA AND OR VOMITING, TAB 07/14/17 Acetaminophen* (Acetaminophen*) 650 Mg Tablet, 650 MG PO Q6H Y for PAIN, #30 TAB AND FEVER 07/14/17 Topiramate* (Topiramate*) 50 Mg Tablet, 150 MG PO BID, TAB 07/14/17 Tamsulosin Hcl* (Tamsulosin Hcl*) 0.4 Mg Cap.er.24h, 0.4 MG PO HS, CAP 07/14/17 Metformin* (Glucophage*) 500 Mg Tab, 500 MG PO WITH BREAKFAST, #30 TAB 12/30/16 Ascorbic Acid (Vitamin C) 500 Mg Tab, 500 MG PO DAILY, TAB 12/30/16 Famotidine* (Famotidine*) 20 Mg Tablet, 20 MG PO DAILY, #60 TAB 12/30/16 Sertraline Hcl* (Sertraline Hcl*) 50 Mg Tablet, 50 MG PO DAILY, #30 TAB 10/08/16 Donepezil* (Donepezil*) 10 Mg Tablet, 10 MG PO QHS, #30 TAB 10/08/16 Allergies Allergies: Coded Allergies: No Known Allergy (Unverified , 07/14/17) PMhx/Soc Seizure disorder, dementia, chronic pain syndrome, opioid dependence diabetes mellitus, hypertension, schizoaffective disorder, chronic low back pain, hypertension History of Surgery: No Anesthesia Reaction: No Hx Neurological Disorder: Yes (seizures) Hx Respiratory Disorders: No (copd) Hx Cardiac Disorders: Yes (HTN;high cholesterol) Hx Psychiatric Problems: Yes (depression) Hx Miscellaneous Medical Probl: Yes (seizure,Alsheimer's, DM, htn, chronic pain ) Hx Alcohol Use: No Hx Substance Use: No Hx Tobacco Use: Yes Smoking Status: Current every day smoker FmHx Family History: No diabetes Physical Exam Vitals Vital Signs Date Time Temp Pulse Resp B/P Pulse Ox O2 Delivery O2 Flow Rate FiO2 08/29/17 18:20 98.1 93 20 158/73 98 Room Air 08/29/17 16:45 98.6 58 21 155/52 99 Physical Exam GENERAL: Well-developed, well-nourished, well-hydrated, in no apparent distress , looks nontoxic in appearance HEENT: Moist mucous membranes, pink conjunctiva, no cervical spine tenderness or step-off deformities, no goiter, no jaundice or icterus, extraocular movements intact without pain. No submandibular induration, and no pharyngeal erythema NEURO: Alert and oriented 3, cranial nerves II through XII intact bilaterally, pupils equal round reactive to light, no focal deficits or facial asymmetry, sensation intact distally Strength 5/5 in upper and lower extremities bilaterally CARDIAC: Regular rate and rhythm, no murmurs rubs or gallops LUNGS: Clear bilaterally no wheezing crackles or stridor ABDOMEN: Soft nontender, no guarding, no rigidity, no rebound, no psoas sign no obturator sign. SKIN: Warm and dry to touch, no abrasions, contusions, or hematomas, no lacerations, no ecchymosis, no target lesions, and without ulcers EXTREMITIES: No clubbing cyanosis or edema, calves are bilaterally symmetrical, no Homans sign, no popliteal cord sign. Distal pulses equal and bilateral PSYCH: Normal affect without agitation or irritability Result Diagram: 08/29/170 08/29/171699 Results 24 hrs Laboratory Tests Test 08/29/17 17:00 White Blood Count 6.510^3/ul Red Blood Count 4.0410^6/ul Hemoglobin 13.5g/dl Hematocrit 42.5% Mean Corpuscular Volume 105.2fl Mean Corpuscular Hemoglobin 33.4pg Mean Corpuscular Hemoglobin Concent 31.8g/dl Red Cell Distribution Width 12.0% Platelet Count 18345^3/UL Mean Platelet Volume 9.5fl Neutrophils % 62.2% Lymphocytes % 27.2% Monocytes % 7.0% Eosinophils % 2.5% Basophils % 0.8% Nucleated Red Blood Cells % 0.0/100WBC Neutrophils # 4.010^3/ul Lymphocytes # 1.810^3/ul Monocytes # 0.510^3/ul Eosinophils # 0.210^3/ul Basophils # 0.110^3/ul Nucleated Red Blood Cells # 0.010^3/ul Sodium Level 145mmol/L Potassium Level 4.6mmol/L Chloride Level 109mmol/L Carbon Dioxide Level 26mmol/L Anion Gap 15 Blood Urea Nitrogen 28mg/dl Creatinine 0.76mg/dl Glucose Level 97mg/dl Calcium Level 9.7mg/dl Total Bilirubin 0.1mg/dl Direct Bilirubin 0.00mg/dl Indirect Bilirubin 0.1mg/dl Aspartate Amino Transf (AST/SGOT) 20IU/L Alanine Aminotransferase (ALT/SGPT) 23IU/L Alkaline Phosphatase 108IU/L Total Protein 8.5g/dl Albumin 4.5g/dl Globulin 4.00g/dl Albumin/Globulin Ratio 1.12 Lipase 88U/L Current Medications Medications (Trade) Dose Ordered Sig/Jacquelyn Route PRN Reason Start Time Stop Time Status Last Admin Dose Admin Sodium Chloride (NS) 500 ml @ 500 mls/hr Q1H STAT IV 08/29/17 17:27 08/29/17 18:26 DC 08/29/17 18:00 Ondansetron HCl (Zofran Inj) 4 mg ONCE STAT IV 08/29/17 17:27 08/29/17 17:29 DC 08/29/17 17:57 Oxycodone/ Acetaminophen (Percocet (5/ 325)) 1 tab ONCE ONCE PO 08/29/17 17:30 08/29/17 17:31 DC 08/29/17 17:58 Ketorolac Tromethamine (Toradol) 15 mg ONCE STAT IV 08/29/17 17:42 08/29/17 17:43 DC 08/29/17 17:57 Miscellaneous Medication (Gi Cocktail (2)) 40 ml ONCE ONCE PO 08/29/17 20:30 08/29/17 20:31 Procedures/MDM IV line was established patient was placed on cardiac sonographer rhythm strip revealed a sinus rhythm at about 60 bpm with upright P and T waves. Patient was afebrile I reviewed the patient's past medical history and multiple previous workups, she was here just a couple weeks ago and diagnosed with opioid withdrawal, she has a long history of chronic recurrent pain syndrome and regular ED visits for IV opioid administration. I treated her here initially with 100 cc normal saline IV and Toradol 15 mg IV and to help with her symptoms (possibly withdrawal) I did administer Percocet 1 tablet p.o. unfortunately patient was unhappy because she did not receive IV Dilaudid, I will not be administering any IV opioid medication to her given her present symptomatology, her active drug-seeking behavior, and their toxic side effects. CBC was unremarkable, electrolytes revealed dehydration with a BUN/creatinine of 28/0.8, liver function tests normal. Urine analysis was also ordered although patient refused to provide urine. Patient had an episode of hypertension with a systolic at about 180 mmHg so I treated her here with clonidine 0.1 mg p.o. 1. Repeat abdominal examination was performed by me at the bedside her belly remained soft without guarding, rigidity, or tenderness. Patient's vital signs do remain normal, but she remains unhappy because she did not receive IV Dilaudid and decided to leave AGAINST MEDICAL ADVICE before for ED workup and management was performed. I am the nurse both explained to her the risks of leaving AGAINST MEDICAL ADVICE including but not limited to delay in diagnosis, sepsis, cystitis, cardiopulmonary decompensation and even . Despite our explanations she decided to leave AGAINST MEDICAL ADVICE. Differential diagnoses considered, included but not limited to acute coronary syndrome, pulmonary embolism, aortic dissection, abdominal aortic aneurysm, sepsis, stroke, meningitis, encephalitis, pneumonia, appendicitis, cholecystitis , bowel obstruction, pyelonephritis, nephrolithiasis, cystitis, as well as metabolic, hematologic, and electrolyte abnormalities. As well as abscess, cellulitis, fractures, and dislocations. Differentials could not be fully investigated as patient left AGAINST MEDICAL ADVICE prior to full ER workup and management Departure Diagnosis: Primary Impression: Drug-seeking behavior Additional Impressions: Abdominal pain Abdominal location: generalized Qualified Code: R10.84 - Generalized abdominal pain Chronic pain syndrome Hypertension Hypertension type: essential hypertension Qualified Code: I10 - Essential hypertension Condition: Stable Patient Instructions: [place] Form- 1 Referrals: NASRA BARBER MD (PCP) NICK RODRIGUES MD Aug 29, 2017 20:24
[2017-08-29] MEDS ORDERED: LIDOCAINE/MYLANTA 40 ML BTL PO ONE (20:30)
[2017-08-29 20:40] VITALS: BP 166/72; PULSE 67; RESP 18
== END 2017-08-29 20:48 | disposition left against medical advice (07) ==
LOC: E/R 16:17
DX: R10.84 Generalized abdominal pain (principal); G89.4 Chronic pain syndrome; I10 Essential (primary) hypertension; E11.9 Type 2 diabetes mellitus without complications; G30.0 Alzheimer's disease with early onset; F17.210 Nicotine dependence, cigarettes, uncomplicated; Z72.89 Other problems related to lifestyle; Z79.4 Long term (current) use of insulin; Z79.84 Long term (current) use of oral hypoglycemic drugs
CPT/HCPCS: 36415; 80053; 83690; 85025; 96374; 99284; J1885; J2405; J7040; P9612

== ENCOUNTER 2017-09-11 21:10 | Emergency (ER) | payer OTHER ==
[~2017-09-11] VITALS: Ht 162.6 cm; Wt 64.0 kg
[2017-09-11 21:16] VITALS: Ht 162.6 cm; Wt 64.0 kg
[2017-09-11] MEDS ORDERED: morphine 2 MG INJ IV STA (21:43)
--- NOTE | 2017-09-11 21:50 | ERD ---
ER Documentation Chief Complaint Chief Complaint ap pain w/ n/v/d today, chronic back pain; ran out of pain meds few days ag HPI This is an 87-year-old female with a past medical history of diabetes, peripheral neuropathy, seizure disorder, dementia, depression, GERD, herniated disc with chronic low back pain on [place] and tramadol, chronic abdominal pain for 3 months who is now presenting with diffuse abdominal pain, nausea, and an episode of nonbilious nonbloody vomiting and diarrhea. The patient has had abdominal pain for over 3 months. She describes it as diffuse, 10 out of 10, worse with movement. She has been extensively worked up for this, but no obvious etiology has been identified. She has been on [place] and tramadol fairly consistently for her back pain, but she states that the tramadol does not do anything. She ran out of her [place] yesterday. She tried to call her doctor's office today, but they stated that her physician was out of town and would not be back until next week. She states that whenever she does not have her [place], her abdominal pain becomes severe. She is worried about getting through the next 3 days without her medication. The answering service of the patient's physician reportedly told her to come to the emergency department if the pain became too much for her. She resides in a nursing facility. She requested transport to the emergency department at that time, so an ambulance was called. She also endorses mild lightheadedness and fatigue. The patient was comfortably resting in her bed with unremarkable vital signs immediately prior to initiation of the interview. The patient denies feeling sick recently. The patient denies fever or chills. The patient has had no headache or vision changes. The patient does not endorse new neck or back pain. The patient does endorse chronic back pain that is unchanged today. The patient denies dizziness. The patient has had no chest pain or shortness of breath or trouble breathing. The patient denies changes to urination. The patient has had no focal deficits. The patient has had no weakness or numbness or tingling to the face or extremities. ROS All systems reviewed and are negative except as per history of present illness. Medications Home Meds Active Scripts Hydrocodone/Acetaminophen ([place] 5-325 Tablet) 1 Each Tablet, 1 TAB PO Q8 Y for PAIN, #9 TAB Prov:NARGIS MYLES MD 09/12/17 Oxycodone HCl/Acetaminophen (Percocet 5-325 mg Tablet) 1 Each Tablet, 1 EACH PO Q6, #10 TAB Prov:HAKEEM WU MD 08/18/17 Cephalexin* (Keflex*) 500 Mg Capsule, 500 MG PO TID for 10 Days, CAP Prov:CHICA DUBOIS MD 07/15/17 Pantoprazole* (Protonix*) 40 Mg Tablet.dr, 40 MG PO DAILY for 14 Days, #14 TAB Prov:ISAC VELEZ MD 07/15/17 Ibuprofen* (Ibuprofen*) 800 Mg Tablet, 800 MG PO Q8 for 14 Days, #42 TAB Prov:ISAC VELEZ MD 07/15/17 Reported Medications Zolpidem Tartrate* (Zolpidem Tartrate*) 5 Mg Tablet, 5 MG PO QHS Y for INSOMNIA , #30 TAB 09/12/17 Guaifenesin (Siltussin Sa) 100 Mg/5 Ml Syrup, 100 MG PO 09/12/17 Naloxegol Oxalate (Movantik) 25 Mg Tablet, 25 MG PO, TAB 09/12/17 Multivitamins* (Theragran*) 1 Tab Tab, 1 TAB PO DAILY, TAB 09/12/17 Linaclotide (Linzess) 72 Mcg Capsule, 72 MCG PO, CAP 09/12/17 Lidocaine (Lidoderm) 1 Each Adh..patch, 1 EACH TP 09/12/17 Triazolam* (Triazolam*) 0.25 Mg Tablet, 0.25 MG PO HS Y for INSOMNIA, TAB 09/12/17 Tramadol Hcl* (Ultram*) 50 Mg Tablet, 50 MG PO Q8, TAB 09/12/17 Diclofenac Sodium* (Diclofenac Sodium*) 75 Mg Tablet.dr, 75 MG PO DAILY, #60 TAB 09/11/17 Gabapentin* (Gabapentin*) 800 Mg Tablet, 800 MG PO Q8H, #90 TAB 07/14/17 Lactobacillus Acidophilus (ACIDOPHILUS) 1 Each Tablet, 1 EACH PO BID, TAB 07/14/17 Insulin Aspart* (Novolog Insulin Pen*) 100 Unit/Ml Soln, 0 SC .SLIDING SCALE AC , EA 07/14/17 [place]iken-3 Acid Ethyl Esters (Lovaza) 1 Gm Capsule, 1 GM PO BID, CAP 07/14/17 Multivitamins* (Theragran*) 1 Tab Tab, 1 TAB PO DAILY, TAB 07/14/17 Naloxegol Oxalate (Movantik) 25 Mg Tablet, 25 MG PO DAILY, TAB 07/14/17 Lidocaine (Lidoderm) 1 Each Adh..patch, 1 EACH TP Q12H 12H-ON/12H-OFF 07/14/17 Guaifenesin* (Robafen*) 100 Mg/5 Ml Syrup, 100 MG PO Q8H Y for COUGH, ML 07/14/17 Ondansetron Hcl* (Zofran*) 4 Mg Tab, 4 MG PO Q4H Y for NAUSEA AND OR VOMITING, TAB 07/14/17 Acetaminophen* (Acetaminophen*) 650 Mg Tablet, 650 MG PO Q6H Y for PAIN, #30 TAB AND FEVER 07/14/17 Topiramate* (Topiramate*) 50 Mg Tablet, 150 MG PO BID, TAB 07/14/17 Tamsulosin Hcl* (Tamsulosin Hcl*) 0.4 Mg Cap.er.24h, 0.4 MG PO HS, CAP 07/14/17 Metformin* (Glucophage*) 500 Mg Tab, 500 MG PO WITH BREAKFAST, #30 TAB 12/30/16 Ascorbic Acid (Vitamin C) 500 Mg Tab, 500 MG PO DAILY, TAB 12/30/16 Famotidine* (Famotidine*) 20 Mg Tablet, 20 MG PO DAILY, #60 TAB 12/30/16 Sertraline Hcl* (Sertraline Hcl*) 50 Mg Tablet, 50 MG PO DAILY, #30 TAB 10/08/16 Donepezil* (Donepezil*) 10 Mg Tablet, 10 MG PO QHS, #30 TAB 10/08/16 Discontinued Reported Medications Levetiracetam* (Levetiracetam*) 250 Mg Tablet, 250 MG PO BID, TAB 07/14/17 Allergies Allergies: Coded Allergies: No Known Allergy (Unverified , 09/11/17) PMhx/Soc History of Surgery: No Anesthesia Reaction: No Hx Neurological Disorder: Yes (seizures) Hx Respiratory Disorders: No (copd) Hx Cardiac Disorders: Yes (HTN;high cholesterol) Hx Psychiatric Problems: Yes (depression) Hx Miscellaneous Medical Probl: Yes (seizure,Alsheimer's, DM, htn, chronic pain ) Hx Alcohol Use: No Hx Substance Use: No Hx Tobacco Use: Yes Smoking Status: Current every day smoker FmHx Family History: diabetes Physical Exam Vitals Vital Signs Date Time Temp Pulse Resp B/P Pulse Ox O2 Delivery O2 Flow Rate FiO2 09/12/17 01:19 98.1 61 16 147/56 97 Room Air 09/11/17 21:24 98.5 55 19 135/49 95 Room Air 09/11/17 21:16 98.5 57 19 142/65 95 Physical Exam Const: No apparent distress, well-developed, well-nourished Head: Normocephalic, Atraumatic Eyes: Normal Conjunctiva. Extraocular movements intact. Pupils equal, round and reactive to light ENT: Normal External Ears, Nose and Mouth. Neck: Full range of motion. No meningismus. Resp: Clear to auscultation bilaterally, No wheezes, rales or rhonchi Cardio: Regular rate and rhythm. No murmurs, rubs or gallops Abd: + Generalized abdominal tenderness to palpation without rebound or guarding. Soft, non distended. Normal bowel sounds Skin: No petechiae or rashes Back: No midline tenderness. No CVA tenderness Ext: No cyanosis, or edema Neur: Awake and alert, oriented 4. Cranial nerves intact. No facial droop. Normal strength, sensation and coordination. Psych: Anxious appearing Result Diagram: 09/11/17213109/11/172131 Results 24 hrs Laboratory Tests Test 09/11/17 20:20 09/11/17 21:32 09/11/17 23:11 Urine Color YELLOW Urine Clarity SLIGHTLY CLOUDY Urine pH 5.0 Urine Specific [place] 1.024 Urine Ketones NEGATIVEmg/dL Urine Nitrite POSITIVEmg/dL Urine Bilirubin NEGATIVEmg/dL Urine Urobilinogen NEGATIVEmg/dL Urine Leukocyte Esterase 3+Keith/ul Urine Microscopic RBC 6/HPF Urine Microscopic WBC 36/HPF Urine Bacteria MODERATE/HPF Urine Hemoglobin NEGATIVEmg/dL Urine Glucose NEGATIVEmg/dL Urine Total Protein 1+mg/dl White Blood Count 6.810^3/ul Red Blood Count 3.8610^6/ul Hemoglobin 13.2g/dl Hematocrit 40.5% Mean Corpuscular Volume 104.9fl Mean Corpuscular Hemoglobin 34.2pg Mean Corpuscular Hemoglobin Concent 32.6g/dl Red Cell Distribution Width 12.2% Platelet Count 11234^3/UL Mean Platelet Volume 9.8fl Neutrophils % 61.8% Lymphocytes % 27.6% Monocytes % 7.4% Eosinophils % 2.2% Basophils % 0.7% Nucleated Red Blood Cells % 0.0/100WBC Neutrophils # 4.210^3/ul Lymphocytes # 1.910^3/ul Monocytes # 0.510^3/ul Eosinophils # 0.210^3/ul Basophils # 0.110^3/ul Nucleated Red Blood Cells # 0.010^3/ul Sodium Level 145mmol/L Potassium Level 3.9mmol/L Chloride Level 110mmol/L Carbon Dioxide Level 23mmol/L Anion Gap 16 Blood Urea Nitrogen 23mg/dl Creatinine 0.97mg/dl Glucose Level 102mg/dl Calcium Level 9.6mg/dl Total Bilirubin 0.0mg/dl Direct Bilirubin 0.00mg/dl Indirect Bilirubin 0.0mg/dl Aspartate Amino Transf (AST/SGOT) 18IU/L Alanine Aminotransferase (ALT/SGPT) 18IU/L Alkaline Phosphatase 92IU/L Total Protein 7.3g/dl Albumin 4.1g/dl Globulin 3.20g/dl Albumin/Globulin Ratio 1.28 Lipase 60U/L Lactic Acid Level 1.1mmol/L Current Medications Medications (Trade) Dose Ordered Sig/Jacquelyn Route PRN Reason Start Time Stop Time Status Last Admin Dose Admin Morphine Sulfate (morphine) 2 mg ONCE STAT IV 09/11/17 21:43 09/11/17 21:46 DC 09/11/17 22:04 Diphenhydramine HCl (Benadryl) 25 mg ONCE ONCE IV 09/11/17 22:00 09/11/17 22:01 DC 09/11/17 22:05 Prochlorperazine (Compazine Inj) 10 mg ONCE ONCE IV 09/11/17 22:00 09/11/17 22:01 DC 09/11/17 22:06 Procedures/[facility] MDM The patient's presentation warrants further investigation. The patient does appear to have chronic abdominal and back pain. Upon review of the patient in the [facility] database. The patient does appear to be treated with tramadol chronically for her pain by her primary care physician. I do not see obvious evidence of the patient being prescribed prolonged courses of [place], despite insistence from the patient that this is the medication that she is on regularly. Based on the cures database, the patient was prescribed 10 tablets of Percocet on August 18, 2017. While I am concerned of drug-seeking behavior in the patient, the database does not show that she is drug shopping. Given her constitution of symptoms, there is a possibility of opiate withdrawal, which would correlate with the patient's story. I will provide the patient a one-time dose of 2 mg of morphine in the emergency department. I will obtain blood work to evaluate for any emergent etiologies. I will evaluate her liver, pancreas, biliary testing, renal function. I will also send off a lactic to evaluate for signs of ischemia or endorgan damage. Based on the patient's presentation, I have low suspicion for mesenteric ischemia. I will also complete a bedside ultrasound of the aorta to evaluate for AAA. LABS The patient's blood work was obtained and reviewed. The patient's CBC shows no leukocytosis and no left shift. The patient is afebrile and does not appear systemically ill. I do not suspect a systemic infection. The patient is not anemic today. The patient's platelet count is unremarkable. The patient's CMP shows no signs of metabolic or electrolyte emergencies. The patient has unremarkable renal and hepatic function testing. Lactic acid was negative. The patient's urinalysis shows nitrite, leuk esterase, white blood cells and bacteria, consistent with a UTI. IMAGING BEDSIDE US ABD Performed by me Normal-appearing aorta with a diameter of 1.8 cm scanned from the level of the liver to the aortic bifurcation. No evidence of AAA TREATMENT/DISPOSITION The patient was given morphine in the emergency department with resolution of her abdominal symptoms. On reevaluation, she had no abdominal tenderness at all. The patient's blood work was reassuring. There is no signs of renal or hepatic pathology. The patient does not have symptoms or blood work consistent with pancreatitis. The patient is well-appearing with a normal lactic acid. I have low suspicion for mesenteric ischemia. The ultrasound did not reveal any evidence of AAA. In discussing with the patient, I discussed my concerns of drug -seeking behavior. The patient expressed understanding that the emergency department is not supposed to be utilized for prescriptions of chronic narcotic medications. However, she is concerned that she is not able to see her primary care doctor until next week. I will provide her a short course of narcotic medications, but she understands that she needs to follow-up with her doctor for any subsequent refills. The patient does have a urinary tract infection, that may also be the cause of some of her symptoms. She does not endorse any urinary symptoms, and has no suprapubic tenderness. However, she does require treatment for this. Unfortunately, the patient left without a prescription for antibiotics. The patient will be called in a prescription. At this time, I feel that the patient stable for discharge. The patient will need follow-up with his primary care physician in 2-3 days. The patient will be given strict precautions with which to return to the emergency department. The patient's blood pressure was elevated at greater than 120/80 while in the emergency department. The patient was otherwise stable with no evidence of hypertensive urgency or emergency. The patient will require reevaluation of his blood pressure in 2-3 days, but this may be completed by a primary care physician as an outpatient. He does not require admission for blood pressure control. RX Keflex Departure Diagnosis: Primary Impression: Abdominal pain Abdominal location: generalized Qualified Code: R10.84 - Generalized abdominal pain Additional Impressions: Chronic pain Chronic pain type: other chronic pain Qualified Code: G89.29 - Other chronic pain Urinary tract infection Urinary tract infection type: acute cystitis Hematuria presence: without hematuria Qualified Code: N30.00 - Acute cystitis without hematuria Narcotic dependence Condition: NARGIS Garner MD Sep 11, 2017 21:50
[2017-09-11] MEDS ORDERED: DIPHENHYDRAMINE 50 MG INJ IV ONE (22:00)
[2017-09-11] MEDS ORDERED: PROCHLORPERAZINE 10 MG INJ IV ONE (22:00)
[2017-09-11 23:18] LABS: BASOPHIL # 0.1 10^3/ul (0.0-0.1); BASOPHILS % 0.7 % (0.0-2.0); EOSINOPHILS # 0.2 10^3/ul (0.0-0.5); EOSINOPHILS % 2.2 % (0.0-7.0); HEMATOCRIT 40.5 % (37.0-47.0); HEMOGLOBIN 13.2 g/dl (12.0-16.0); LYMPHOCYTES # 1.9 10^3/ul (0.8-2.9); LYMPHOCYTES % 27.6 % (15.0-51.0); MEAN CORPUSCULAR HEMOGLOBIN 34.2 pg (29.0-33.0); MEAN CORPUSCULAR HGB CONC 32.6 g/dl (32.0-37.0); MEAN CORPUSCULAR VOLUME 104.9 fl (82.0-101.0); MEAN PLATELET VOLUME 9.8 fl (7.4-10.4); MONOCYTE # 0.5 10^3/ul (0.3-0.9); MONOCYTES % 7.4 % (0.0-11.0); NEUTROPHIL # 4.2 10^3/ul (1.6-7.5); NEUTROPHILS % 61.8 % (39.0-77.0); PLATELET COUNT 243 10^3/UL (140-415); RED BLOOD COUNT 3.86 10^6/ul (4.20-5.40); RED CELL DISTRIBUTION WIDTH 12.2 % (11.5-14.5); WHITE BLOOD COUNT 6.8 10^3/ul (4.8-10.8)
[2017-09-11] MEDS ORDERED: DICL75TA2 PO (23:33)
[2017-09-11 23:38] LABS: ALBUMIN 4.1 g/dl (3.3-4.9); ALBUMIN/GLOBULIN RATIO 1.28; CALCIUM 9.6 mg/dl (8.4-10.2); CREATININE 0.97 mg/dl (0.44-1.00); POTASSIUM 3.9 mmol/L (3.5-5.1); TOTAL PROTEIN 7.3 g/dl (6.1-8.1)
[2017-09-11 23:56] LABS: ADD UMIC YES; UR ASCORBIC ACID 40 mg/dL (NEGATIVE); UR BACTERIA MODERATE /HPF (NONE SEEN); UR BILIRUBIN (Dip) NEGATIVE (NEGATIVE); UR BLOOD (Dip) NEGATIVE (NEGATIVE); UR CLARITY SLIGHTLY CLOUDY (CLEAR); UR COLOR YELLOW (YELLOW); UR GLUCOSE (Dip) NEGATIVE (NEGATIVE); UR KETONES (Dip) NEGATIVE (NEGATIVE); UR LEUKOCYTE ESTERASE (Dip) 3+ Leu/ul (NEGATIVE); UR NITRITE (Dip) POSITIVE (NEGATIVE); UR RBC 6 /HPF (0-5); UR SPECIFIC GRAVITY (Dip) 1.024 (1.003-1.030); UR TOTAL PROTEIN (Dip) 1+ mg/dl (NEGATIVE); UR UROBILINOGEN (Dip) NEGATIVE (NEGATIVE)
[2017-09-12] MEDS ORDERED: MULTI PO (00:04)
[2017-09-12] MEDS ORDERED: TRAM-40 PO (00:04)
[2017-09-12] MEDS ORDERED: LINA72CA PO (00:04)
[2017-09-12] MEDS ORDERED: TRIA0.2526 PO (00:04)
[2017-09-12] MEDS ORDERED: LIDO700A10 TP (00:04)
[2017-09-12] MEDS ORDERED: ZOLP5TAB7 PO (00:11)
[2017-09-12] MEDS ORDERED: NALO25TA PO (00:11)
[2017-09-12] MEDS ORDERED: [UNRECOGNIZED DRUG - CODE] PO (00:11)
[2017-09-12] MEDS ORDERED: HYDR-906 PO (00:22)
[2017-09-12 01:19] VITALS: BP 147/56; PULSE 61; RESP 16; TEMP 98.1
== END 2017-09-12 01:20 | disposition short-term general hospital (02) ==
LOC: E/R 21:10
DX: N30.00 Acute cystitis without hematuria (principal); G89.29 Other chronic pain; F11.20 Opioid dependence, uncomplicated; E11.9 Type 2 diabetes mellitus without complications; I10 Essential (primary) hypertension; F17.210 Nicotine dependence, cigarettes, uncomplicated; J44.9 Chronic obstructive pulmonary disease, unspecified; Z79.84 Long term (current) use of oral hypoglycemic drugs; Z79.4 Long term (current) use of insulin
CPT/HCPCS: 36415; 80053; 81001; 83605; 83690; 85025; 96374; 96375; 99285; J0780; J1200; J2270

== ENCOUNTER 2017-09-25 14:02 | Emergency (ER) | payer OTHER ==
[~2017-09-25] VITALS: Ht 162.6 cm; Wt 65.0 kg
[~2017-09-25 14:02] MED LIST changes: +DICL75TA2 PO; +HYDR-906 PO; -LEVE250T5 PO; +LINA72CA PO; +TRAM-40 PO; +TRIA0.2526 PO; +ZOLP5TAB7 PO; +[UNRECOGNIZED DRUG - CODE] PO
[2017-09-25] MEDS ORDERED: ONDANSETRON (ODT) 4 MG TAB ODT STA (14:04)
[2017-09-25 14:19] VITALS: Ht 162.6 cm; Wt 65.0 kg
[2017-09-25] MEDS ORDERED: HYDROCODONE/APAP (10/325) TAB PO ONE (14:30)
[2017-09-25 14:50] LABS: BASOPHIL # 0.1 10^3/ul (0.0-0.1); BASOPHILS % 0.8 % (0.0-2.0); EOSINOPHILS # 0.2 10^3/ul (0.0-0.5); EOSINOPHILS % 3.4 % (0.0-7.0); HEMATOCRIT 42.3 % (37.0-47.0); HEMOGLOBIN 13.7 g/dl (12.0-16.0); LYMPHOCYTES # 1.8 10^3/ul (0.8-2.9); LYMPHOCYTES % 30.3 % (15.0-51.0); MEAN CORPUSCULAR HEMOGLOBIN 33.7 pg (29.0-33.0); MEAN CORPUSCULAR HGB CONC 32.4 g/dl (32.0-37.0); MEAN CORPUSCULAR VOLUME 104.2 fl (82.0-101.0); MEAN PLATELET VOLUME 10.1 fl (7.4-10.4); MONOCYTE # 0.4 10^3/ul (0.3-0.9); MONOCYTES % 5.9 % (0.0-11.0); NEUTROPHIL # 3.5 10^3/ul (1.6-7.5); NEUTROPHILS % 59.4 % (39.0-77.0); PLATELET COUNT 198 10^3/UL (140-415); RED BLOOD COUNT 4.06 10^6/ul (4.20-5.40); RED CELL DISTRIBUTION WIDTH 11.8 % (11.5-14.5); WHITE BLOOD COUNT 5.9 10^3/ul (4.8-10.8)
[2017-09-25 15:15] LABS: ALBUMIN 4.2 g/dl (3.3-4.9); ALBUMIN/GLOBULIN RATIO 1.16; BILIRUBIN,INDIRECT 0.2 mg/dl (0-1.1); BILIRUBIN,TOTAL 0.2 mg/dl (0.2-1.3); CALCIUM 9.7 mg/dl (8.4-10.2); CREATININE 0.88 mg/dl (0.44-1.00); POTASSIUM 4.4 mmol/L (3.5-5.1); TOTAL PROTEIN 7.8 g/dl (6.1-8.1)
--- NOTE | 2017-09-25 15:42 | RADRPT ---
PROCEDURE: CT Abdomen and Pelvis without contrast. CLINICAL INDICATION: Abdominal pain TECHNIQUE: CT scan of the abdomen and pelvis was performed on a multidetector high-resolution CT s canner without intravenous contrast. Coronal and sagittal reformatted images were obtained from the axial source images. Images were reviewed on a high-resolution PACS workstation. The total exam CTD I equals 13mGy and the total exam DLP equals 651mGy-cm. One or more of the following dose reduction techniques were used: Automated exposure control, Adjustment of the mA and/or kV according to patien t size, and/or use of iterative reconstruction technique. DICOM images are available. COMPARISON: Abdominal CT 07/14/2017 FINDINGS: Evaluation of the solid organs is limited given the lack of intravenous contrast administration. The lung bases are clear. The liver, pancreas, spleen, and adrenals are grossly unremarkable. Unchanged mild prominence of the common bile duct status post cholecystectomy. No hydronephrosis. Unchanged punctate left renal nonobstructing stones. No bowel obstruction. Normal-caliber appendix. A few scattered colonic diverticula are seen. No significant retroperitoneal lymphadenopathy, ascites or evidence of pneumoperitoneum. Aortoiliac atherosclerosis. Uterine calcifications. Advanced degenerative changes of the spine. Similar appearance of severe sclerotic changes of the e ndplates T12-L1. There is a partially calcified 7 mm left central disc extrusion at this level exten ding caudal to the disc level which effaces the left lateral recess. IMPRESSION: No significant change identified since 07/14/2017. Punctate nonobstructing left renal stones. No evidence of bowel obstruction or appendicitis. Colonic diverticulosis without evidence of acute diverticulitis. Status post cholecystectomy. Similar appearance of severe sclerotic changes of the endplates T12-L1 with partially calcified 7 mm left central disc extrusion extending caudal to the disk level. If there is suspicion for diskitis, MRI can be obtained for further evaluation. RPTAT: AA .Loi Lu MD, Date Time Electronically viewed and signed by .Loi Lu MD, MD on 09/25/2017 15:41 .T/
[2017-09-25] MEDS ORDERED: LEVE250T5 PO (16:26)
[2017-09-25] MEDS ORDERED: SS SC (16:26)
--- NOTE | 2017-09-25 16:32 | ERD ---
ER Documentation Chief Complaint Chief Complaint [facility] HPI This is an 87-year-old female who presents to the emergency room complaining of generalized pain. The patient is a very difficult and limited historian. She states a history of chronic pain. Today she is describing abdominal pain back pain and bilateral hip pain. She states the only new pain is abdominal pain though she has a recent visit for abdominal pain. She describes diffuse cramping abdominal pain is asking for IV or IM narcotics. She denies any nausea vomiting diarrhea or constipation. No chest pain or shortness of breath. ROS All systems reviewed and are negative except as per history of present illness. Medications Home Meds Reported Medications Insulin Human Regular (Novolin-R U-100) 100 Unit/Ml Soln, 0 SC SLIDING SCALE AC , EA 09/25/17 Levetiracetam* (Levetiracetam*) 250 Mg Tablet, 250 MG PO BID, TAB 09/25/17 Zolpidem Tartrate* (Zolpidem Tartrate*) 5 Mg Tablet, 5 MG PO QHS Y for INSOMNIA , #30 TAB 09/12/17 Guaifenesin (Siltussin Sa) 100 Mg/5 Ml Syrup, 100 MG PO TID 09/12/17 Linaclotide (Linzess) 72 Mcg Capsule, 72 MCG PO DAILY, CAP 09/12/17 Triazolam* (Triazolam*) 0.25 Mg Tablet, 0.25 MG PO DAILY Y for INSOMNIA, TAB 09/12/17 Tramadol Hcl* (Ultram*) 50 Mg Tablet, 50 MG PO Q8, TAB 09/12/17 Diclofenac Sodium* (Diclofenac Sodium*) 75 Mg Tablet.dr, 75 MG PO BID, #60 TAB 09/11/17 Gabapentin* (Gabapentin*) 800 Mg Tablet, 800 MG PO Q8H, #90 TAB 07/14/17 Lactobacillus Acidophilus (ACIDOPHILUS) 1 Each Tablet, 1 EACH PO BID, TAB 07/14/17 [place]-3 Acid Ethyl Esters (Lovaza) 1 Gm Capsule, 1 GM PO BID, CAP 07/14/17 Multivitamins* (Theragran*) 1 Tab Tab, 1 TAB PO DAILY, TAB 07/14/17 Naloxegol Oxalate (Movantik) 25 Mg Tablet, 25 MG PO DAILY, TAB 9/18/17 Lidocaine (Lidoderm) 1 Each Adh..patch, 1 EACH TP Q12H 12H-ON/12H-OFF 07/14/17 Topiramate* (Topiramate*) 50 Mg Tablet, 150 MG PO BID, TAB 07/14/17 Tamsulosin Hcl* (Tamsulosin Hcl*) 0.4 Mg Cap.er.24h, 0.4 MG PO HS, CAP 07/14/17 Metformin* (Glucophage*) 500 Mg Tab, 500 MG PO WITH BREAKFAST, #30 TAB 12/30/16 Ascorbic Acid (Vitamin C) 500 Mg Tab, 500 MG PO DAILY, TAB 12/30/16 Famotidine* (Famotidine*) 20 Mg Tablet, 20 MG PO DAILY, #60 TAB 12/30/16 Sertraline Hcl* (Sertraline Hcl*) 50 Mg Tablet, 50 MG PO DAILY, #30 TAB 10/08/16 Donepezil* (Donepezil*) 10 Mg Tablet, 10 MG PO QHS, #30 TAB 10/08/16 Discontinued Reported Medications Naloxegol Oxalate (Movantik) 25 Mg Tablet, 25 MG PO, TAB 09/12/17 Multivitamins* (Theragran*) 1 Tab Tab, 1 TAB PO DAILY, TAB 09/12/17 Lidocaine (Lidoderm) 1 Each Adh..patch, 1 EACH TP 09/12/17 Insulin Aspart* (Novolog Insulin Pen*) 100 Unit/Ml Soln, 0 SC .SLIDING SCALE AC , EA 07/14/17 Guaifenesin* (Robafen*) 100 Mg/5 Ml Syrup, 100 MG PO Q8H Y for COUGH, ML 07/14/17 Ondansetron Hcl* (Zofran*) 4 Mg Tab, 4 MG PO Q4H Y for NAUSEA AND OR VOMITING, TAB 07/14/17 Acetaminophen* (Acetaminophen*) 650 Mg Tablet, 650 MG PO Q6H Y for PAIN, #30 TAB AND FEVER 07/14/17 Discontinued Scripts Hydrocodone/Acetaminophen ([place] 5-325 Tablet) 1 Each Tablet, 1 TAB PO Q8 Y for PAIN, #9 TAB Prov:NARGIS MYLES MD 09/12/17 Oxycodone HCl/Acetaminophen (Percocet 5-325 mg Tablet) 1 Each Tablet, 1 EACH PO Q6, #10 TAB Prov:HAKEEM WU MD 08/18/17 Cephalexin* (Keflex*) 500 Mg Capsule, 500 MG PO TID for 10 Days, CAP Prov:CHICA DUBOIS MD 07/15/17 Pantoprazole* (Protonix*) 40 Mg Tablet.dr, 40 MG PO DAILY for 14 Days, #14 TAB Prov:ISAC VELEZ MD 07/15/17 Ibuprofen* (Ibuprofen*) 800 Mg Tablet, 800 MG PO Q8 for 14 Days, #42 TAB Prov:ISAC VELEZ MD 07/15/17 Allergies Allergies: Coded Allergies: No Known Allergy (Unverified , 09/25/17) PMhx/Soc History of Surgery: No Anesthesia Reaction: No Hx Neurological Disorder: Yes (seizures) Hx Respiratory Disorders: No (copd) Hx Cardiac Disorders: Yes (HTN;high cholesterol) Hx Psychiatric Problems: Yes (depression) Hx Miscellaneous Medical Probl: Yes (seizure,[place]'s, DM, htn, chronic pain ) Hx Alcohol Use: No Hx Substance Use: No Hx Tobacco Use: Yes Smoking Status: Current some day smoker FmHx Family History: diabetes Physical Exam Vitals Vital Signs Date Time Temp Pulse Resp B/P Pulse Ox O2 Delivery O2 Flow Rate FiO2 09/25/17 16:25 56 18 141/68 96 Room Air 09/25/17 14:19 97.9 62 18 133/82 99 Physical Exam General: Well developed, well nourished, no acute distress Head: Normocephalic, atraumatic. Eyes: Pupils equally reactive, EOM intact ENT: Moist mucous membranes Neck: Supple, no lymphadenopathy Respiratory: Lungs clear bilaterally, no distress Cardiovascular: RRR, no murmurs, rubs, or gallops Abdominal: Soft, non-tender, non-distended, no peritoneal signs : Deferred MSK: No edema, no unilateral swelling, 5/5 strength Neurologic: Alert and oriented, moving all extremities, normal speech, no focal weakness, no cerebellar signs Skin: No rash Psych: Normal mood Result Diagram: 09/25/17 1408 09/25/17 1408 Results 24 hrs Laboratory Tests Test 09/25/17 14:08 White Blood Count 5.910^3/ul Red Blood Count 4.0610^6/ul Hemoglobin 13.7g/dl Hematocrit 42.3% Mean Corpuscular Volume 104.2fl Mean Corpuscular Hemoglobin 33.7pg Mean Corpuscular Hemoglobin Concent 32.4g/dl Red Cell Distribution Width 11.8% Platelet Count 76430^3/UL Mean Platelet Volume 10.1fl Neutrophils % 59.4% Lymphocytes % 30.3% Monocytes % 5.9% Eosinophils % 3.4% Basophils % 0.8% Nucleated Red Blood Cells % 0.0/100WBC Neutrophils # 3.510^3/ul Lymphocytes # 1.810^3/ul Monocytes # 0.410^3/ul Eosinophils # 0.210^3/ul Basophils # 0.110^3/ul Nucleated Red Blood Cells # 0.010^3/ul Sodium Level 144mmol/L Potassium Level 4.4mmol/L Chloride Level 109mmol/L Carbon Dioxide Level 26mmol/L Anion Gap 13 Blood Urea Nitrogen 23mg/dl Creatinine 0.88mg/dl Glucose Level 106mg/dl Calcium Level 9.7mg/dl Total Bilirubin 0.2mg/dl Direct Bilirubin 0.00mg/dl Indirect Bilirubin 0.2mg/dl Aspartate Amino Transf (AST/SGOT) 16IU/L Alanine Aminotransferase (ALT/SGPT) 28IU/L Alkaline Phosphatase 100IU/L Total Protein 7.8g/dl Albumin 4.2g/dl Globulin 3.60g/dl Albumin/Globulin Ratio 1.16 Lipase 48U/L Current Medications Medications (Trade) Dose Ordered Sig/Jacquelyn Route PRN Reason Start Time Stop Time Status Last Admin Dose Admin Acetaminophen/ Hydrocodone Bitart ([place] (10/325)) 1 tab ONCE ONCE PO 09/25/17 14:30 09/25/17 14:31 DC 09/25/17 15:15 Ondansetron HCl (Zofran Odt) 4 mg ONCE STAT ODT 09/25/17 14:04 09/25/17 14:05 DC 09/25/17 15:15 Procedures/MDM EKG, MONITORS, & DIAGNOSTIC IMAGING: CT abdomen and pelvis IMPRESSION: No significant change identified since 07/14/2017. Punctate nonobstructing left renal stones. No evidence of bowel obstruction or appendicitis. Colonic diverticulosis without evidence of acute diverticulitis. Status post cholecystectomy. Similar appearance of severe sclerotic changes of the endplates T12-L1 with partially calcified 7 mm left central disc extrusion extending caudal to the disk level. If there is suspicion for diskitis, MRI can be obtained for further evaluation. RPTAT: AA LAB INTERPRETATION: No leukocytosis no hepatobiliary obstruction MEDICAL DECISION MAKING: Reviewing the patient's electronic medical record she has multiple visits to the emergency room for multiple pain related complaints including a recent visit for abdominal pain. However, despite this she is describing that she has never had abdominal pain before she is asking for IV and IV narcotics. A combination of electronic medical record review, [facility] database review and patient behavior in the emergency room are concerning for drug-seeking and/or narcotic dependence behavior. In my opinion further use of IV or IM narcotics in this patient is not warranted unless clinical scenario changes. In addition , we should use caution prescribing chronic narcotic and/or benzodiazepine medications from the emergency room. A single provider should be dispensing this type of medication. The patient was informed. The patient was offered [place] and initially refused however eventually took this medication. ER COURSE: Patient's laboratory testing and diagnostic imaging is unrevealing. At this point the patient does not meet criteria for inpatient hospitalization. Her abdominal pain and back pain appear to be chronic and unchanged. No evidence of acute vascular process. No indication for hospitalization or further advanced imaging. Again, I will not provide the patient with IV or IM narcotics as I believe it is contraindicated given her chronicity of pain. The patient is unhappy about this but I did have multiple conversations with her at the bedside and I have offered and provided oral narcotic pain medication. The patient is stating she would like to speak to social staff worker. She states that she lives at an assisted care living facility and does not want to return because "they do not do anything for my pain". The patient has outpatient narcotic pain medication. I will involve social staff worker to establish if the patient can receive appropriate care at this facility including transfer assist. Otherwise, the patient is well-appearing, well cared for and stable for discharge. I kept the patient and/or family informed of laboratory and diagnostic imaging results throughout the emergency room course. DISPOSITION PLAN: We discussed follow up with the patient's primary care doctor within 24 to 48 hours as needed. We also discussed return to the emergency room for worsening symptoms or worsening condition. Outpatient referral: Pain medicine specialist through primary care physician Discharge Medications: None required Departure Diagnosis: Primary Impression: Chronic pain Chronic pain type: other chronic pain Qualified Code: G89.29 - Other chronic pain Additional Impressions: Narcotic dependence Abdominal pain Abdominal location: generalized Qualified Code: R10.84 - Generalized abdominal pain Condition: Stable Patient Instructions: Abdominal Pain, Chronic Pain Additional Instructions: Call your primary care doctor TOMORROW for an appointment during the next 1 WEEK.Tell the gray mixing operator that you were referred from this facility.See the doctor sooner or return here if your condition worsens before your appointment time. JAMI NARAYAN MD Sep 25, 2017 16:32
[2017-09-25 19:39] VITALS: BP 135/80; PULSE 60; RESP 18; TEMP 97.9
== END 2017-09-25 19:40 | disposition home or self-care (01) ==
LOC: E/R 14:02
DX: G89.29 Other chronic pain (principal); F11.20 Opioid dependence, uncomplicated; I10 Essential (primary) hypertension; J44.9 Chronic obstructive pulmonary disease, unspecified; G30.9 Alzheimer's disease, unspecified; E11.9 Type 2 diabetes mellitus without complications; F17.210 Nicotine dependence, cigarettes, uncomplicated; Z79.4 Long term (current) use of insulin; Z79.84 Long term (current) use of oral hypoglycemic drugs
CPT/HCPCS: 36415; 74176; 80053; 83690; 85025

== ENCOUNTER 2017-11-06 13:18 | Emergency (ER) | END 2017-11-06 19:44 | disposition home or self-care (01) ==

== ENCOUNTER 2017-12-03 02:15 | Emergency (ER) | END 2017-12-03 09:15 ==

== ENCOUNTER 2017-12-07 11:52 | Emergency (ER) | END 2017-12-07 13:48 | disposition home or self-care (01) ==

== ENCOUNTER 2017-12-16 20:41 | Emergency (ER) | END 2017-12-17 01:36 | disposition home or self-care (01) ==

== ENCOUNTER 2017-12-22 00:54 | Emergency (ER) | END 2017-12-22 06:05 | disposition home or self-care (01) ==